=== PATIENT | male | born 1955 | race Caucasian/White ===

== ENCOUNTER → 2016-07-23 | Outpatient (CLI) | payer BC ==
[~2016-07-23] MED LIST: ATOR-22 PO; BECL1AER5 NAE; LOSA1TAB PO; MONT1TAB3 PO; MULT-506 PO
[2016-07-23 13:02] LABS: ALB/GLOB RATIO 1.2 (0.9-2); ALKALINE PHOSPHATASE 54 U/L (45-117); ALT/SGPT 42 U/L (12-78); AST/SGOT 15 U/L (15-37); BLOOD UREA NITROGEN 14 mg/dl (7-18); BUN/CREATININE RATIO 14.8 (10-20); CALCIUM 8.9 mg/dl (8.5-10.1); CARBON DIOXIDE 26 mmol/L (21-32); CHLORIDE 109 mmol/L (98-107); CREATININE 0.97 mg/dl (0.60-1.40); GLUCOSE 99 mg/dl (70-99); HDL CHOLESTEROL 49 mg/dl; POTASSIUM 4.1 mmol/L (3.5-5.1); SODIUM 143 mmol/L (136-145)
[2016-07-23 13:03] LABS: CHOLESTEROL 181 mg/dl (0-200); CHOLESTEROL/HDL RATIO 3.7; LDL CHOLESTEROL CALCULATED 111 mg/dl; TRIGLYCERIDES 107 mg/dl (0-150); VERY LOW DENSITY LIPOPROT CALC 21 mg/dl
== END | disposition home or self-care (01) ==
LOC: C.LABBFT 07:56
PROVIDERS: ATTEND Internal Medicine
DX: E78.00 Pure hypercholesterolemia, unspecified (principal)

== ENCOUNTER → 2016-08-17 | Day surgery (SDC) | payer BC ==
[2016-08-05 11:30] VITALS: Ht 168.9 cm; Wt 76.4 kg
[~2016-08-17] VITALS: Ht 168.9 cm; Wt 76.4 kg
[~2016-08-17] MED LIST changes: +LIDOCAINE HCL 2% 2 ML VIAL (20MG/ML) ONE; +PROPOFOL IV EMULSION 10 MG/ML 20 ML VIAL IV ONE
[2016-08-17 08:37] VITALS: TEMP 37
--- NOTE | 2016-08-17 09:06 | Endo History and Physical ---
History & Physical Date of Service: Aug 17, 2016. Chief Complaint: Screening Referring Physician: Ángela History of Present Illness 61 yo CM who presents for screening colonoscopy. Past Medical History High Cholesterol, Hypertension, Kidney Disease Past Surgical History Hx Cardiac Surgery: No Hx Internal Defibrillator: No Hx Pacemaker: No Hx Abdominal Surgery: No Hx of Implantable Prosthesis: No Hx Post-Op Nausea and Vomiting: No Hx Cancer Surgery: No Hx Thoracic Surgery: No Hx Orthopedic: No Hx Urinary Tract Surgery: Yes (LITHOTRIPSY) Family History None Social History Smoking Status: Current Every Day Smoker Hx Substance Use: No Hx Alcohol Use: Yes ("SOCIAL") Allergies Coded Allergies: Penicillins (Verified Allergy, Mild, RASH, 08/05/16) Tetracycline (Verified Allergy, Mild, RASH, 08/05/16) Erythromycin (Verified Allergy, Unknown, RASH, 08/05/16) Current Medications Reported Home Medications Medications Dose Route/Sig Max Daily Dose Days Date Category Multivitamin (Multivitamins) Tab 1 Tab PO QAM 08/05/16 Reported Lipitor (Atorvastatin Calcium) 20 Mg Tab 20 Mg PO QAM 08/05/16 Reported Cozaar (Losartan Potassium) 25 Mg Tab 25 Mg PO QAM 08/05/16 Reported Singulair (Montelukast Sodium) 10 Mg Tab 10 Mg PO QAM 11/06/14 Reported Qnasl (Beclomethasone Dipropionate (N) 80 Mcg/Act Aer 1 [place] SUSIE QAM 11/06/14 Reported Vital Signs Weight (Kilograms): 76.36 Height (Feet): 5 Height (Inches): 6.5 Date Time Temp Pulse Resp B/P Pulse Ox O2 Delivery O2 Flow Rate FiO2 08/17/16 08:37 37.0 85 20 136/84 94 Room Air Physical Exam General Appearance: WD/WN, no apparent distress Respiratory/Chest: Auscultation: breath sounds normal Cardiovascular: Heart Auscultation: RRR Abdomen: Bowel Sounds: normal Inspection & Palpation: soft, non-distended, no tenderness, guarding & rebound Assessment and Plan Assessment: 61 yo CM who presents for screening colonoscopy. Plan: Proceed with colonoscopy.
--- NOTE | 2016-08-17 09:58 | Discharge Instructions ---
Endoscopy Patient Instructions Date / Procedure(s) Performed Aug 17, 2016. Colonoscopy Allergy Information Coded Allergies: Penicillins (Verified Allergy, Mild, RASH, 08/05/16) Tetracycline (Verified Allergy, Mild, RASH, 08/05/16) Erythromycin (Verified Allergy, Unknown, RASH, 08/05/16) Discharge Date / Findings Aug 17, 2016. Colon polyps Diverticulosis Internal hemorrhoids Medication Instructions OK to resume all medications today as prescribed Reported Home Medications Medications Dose Route/Sig Max Daily Dose Days Date Category Multivitamin (Multivitamins) Tab 1 Tab PO QAM 08/05/16 Reported Lipitor (Atorvastatin Calcium) 20 Mg Tab 20 Mg PO QAM 08/05/16 Reported Cozaar (Losartan Potassium) 25 Mg Tab 25 Mg PO QAM 08/05/16 Reported Singulair (Montelukast Sodium) 10 Mg Tab 10 Mg PO QAM 11/06/14 Reported Qnasl (Beclomethasone Dipropionate (N) 80 Mcg/Act Aer 1 [place] SUSIE QAM 11/06/14 Reported Provider Instructions Activity Restrictions - No exercising or heavy lifting for 24 hours. - Do not drink alcohol the day of the procedure. - Do not drive a car or operate machinery until the day after the procedure. - Do not make any important decisions or sign important papers in 24 hours after the procedure. Following Day: - Return to full activity which may include returning to work/school. Diet Start your diet with liquids and light foods (jello, soup, juice, toast). Then eat your usual diet if not nauseated. Treatment For Common After Affects For mild abdominal pain, bloating, or excessive gas: - Rest - Eat lightly - Lie on right side Follow-Up Information Follow-up with Ángela as scheduled Anesthesia Information What You Should Know You have had a procedure that required some medicine to reduce anxiety and discomfort. This treatment is called moderate sedation. After receiving the treatment, you may be sleepy, but you will be able to breathe on your own. The effects of the treatment may last for several hours. Follow these instructions along with Activity/Diet recommendations noted above: * Do NOT do anything where dizziness or clumsiness would be dangerous. * Rest quietly at home today, then you can be up and about tomorrow. * Have a responsible person stay with you the rest of today. * You may have had an I.V. today. If so, you may take the dressing off later today. Recommendations Call your doctor if: * Trouble breathing * Continuous vomiting for more than 24 hours * Temperature above 101 degrees * Severe abdominal pain or bloating * Pain not relieved by pain medicine ordered * There is increased drainage or redness from any incision * A large amount of rectal bleeding greater than 2-3 tablespoons. (If you had a polyp/s removed or have hemorrhoids, a small amount of blood - from the rectum is to be expected.) * You have any unanswered questions or concerns. IN THE EVENT OF A SERIOUS EMERGENCY, GO TO THE NEAREST EMERGENCY ROOM Your discharge instructions were prepared by provider Bud Martin. Patient Instructions Signature Page Devan Mata Patient (or Guardian) Signature/Date: I have read and understand the instructions given to me by my caregivers. Caregiver/RN/Doctor Signature/Date: The above-named patient and/or guardian has received patient instructions on this date. + Original Patient Signature Page (only) stays with chart. Please make copy for patient.
--- NOTE | 2016-08-17 09:58 | GI REPORT ---
Procedure Date: 08/17/2016 9:21 AM Procedure: Colonoscopy Indications: Screening for colorectal malignant neoplasm Medicines: Monitored Anesthesia Care Complications: No immediate complications. Estimated Blood Loss: Estimated blood loss: none. Procedure: Pre-Anesthesia Assessment: - Prior to the procedure, a History and Physical was performed, and patient medications and allergies were reviewed. The patient's tolerance of previous anesthesia was also reviewed. The risks and benefits of the procedure and the sedation options and risks were discussed with the patient. All questions were answered, and informed consent was obtained. Prior Anticoagulants: The patient has taken no previous anticoagulant or antiplatelet agents. ASA Grade Assessment: II - A patient with mild systemic disease. After reviewing the risks and benefits, the patient was deemed in satisfactory condition to undergo the procedure. After I obtained informed consent, the scope was passed under direct vision. Throughout the procedure, the patient's blood pressure, pulse, and oxygen saturations were monitored continuously. The Scope was introduced through the anus and advanced to the terminal ileum. The colonoscopy was performed without difficulty. The patient tolerated the procedure well. The quality of the bowel preparation was good. The terminal ileum, ileocecal valve, appendiceal orifice, and rectum were photographed. Findings: Two sessile polyps were found in the transverse colon and in the ascending colon. The polyps were 5 to 8 mm in size. These polyps were removed with a hot snare. Resection and retrieval were complete. Multiple small-mouthed diverticula were found in the sigmoid colon. Non-bleeding internal hemorrhoids were found during retroflexion. The hemorrhoids were small. Impression: - Two 5 to 8 mm polyps in the transverse colon and in the ascending colon, removed with a hot snare. Resected and retrieved. - Diverticulosis in the sigmoid colon. - Non-bleeding internal hemorrhoids. Recommendation: - Resume previous diet. - Continue present medications. - Repeat colonoscopy for surveillance based on pathology results. - Return to primary care physician as previously scheduled. Bud Martin, DO 08/17/2016 9:58:24 AM This report has been signed electronically. Note Initiated On: 08/17/2016 9:21 AM I attest to the content of the Intraoperative Record and orders documented therein, exceptions below
--- NOTE | 2016-08-17 10:19 | Anesthesiology Progress Note ---
Anesthesia Post Op Note Date & Time Aug 17, 2016 at 10:19 Vital Signs Pain Intensity: 0 Vital Signs Past 12 Hours Date Time Temp Pulse Resp B/P Pulse Ox O2 Delivery O2 Flow Rate FiO2 08/17/16 10:11 84 20 134/83 95 Room Air 08/17/16 09:57 88 20 126/63 100 Room Air 08/17/16 08:37 37.0 85 20 136/84 94 Room Air Notes Mental Status: alert / awake / arousable, participated in evaluation Pt Amnestic to Procedure: Yes Nausea / Vomiting: adequately controlled Pain: adequately controlled Airway Patency, RR, SpO2: stable & adequate BP & HR: stable & adequate Hydration State: stable & adequate Anesthetic Complications: no major complications apparent
[2016-08-17 10:25] VITALS: BP 128/77; PULSE 82; O2SAT 97
== END | disposition home or self-care (01) ==
LOC: C.GI 08:16
PROVIDERS: ATTEND Internal Medicine
DX: Z12.11 Encounter for screening for malignant neoplasm of colon (principal); D12.2 Benign neoplasm of ascending colon; K57.30 Diverticulosis of large intestine without perforation or abscess without bleeding; K64.8 Other hemorrhoids; I12.9 Hypertensive chronic kidney disease with stage 1 through stage 4 chronic kidney disease, or unspecified chronic kidney disease; N18.9 Chronic kidney disease, unspecified; Z87.891 Personal history of nicotine dependence

== ENCOUNTER → 2017-03-23 | Outpatient (CLI) | payer BC ==
[~2017-03-23] MED LIST changes: -LIDOCAINE HCL 2% 2 ML VIAL (20MG/ML) ONE; -PROPOFOL IV EMULSION 10 MG/ML 20 ML VIAL IV ONE
== END | disposition home or self-care (01) ==
LOC: C.LABSPEC 17:33
PROVIDERS: ATTEND Nurse Practitioner
DX: J02.9 Acute pharyngitis, unspecified (principal)

== ENCOUNTER → 2017-03-23 | Outpatient (CLI) | payer BC | END | disposition home or self-care (01) | LOC: C.LABBFT 11:46 | PROVIDERS: ATTEND Nurse Practitioner | DX: J02.9 Acute pharyngitis, unspecified (principal) ==

== ENCOUNTER 2023-04-14 13:52 | Inpatient (IN) ==
[2023-04-14 14:35] LABS: Hematocrit (blood only) 45.6 % (42.0-52.0); Hemoglobin 15.4 g/dl (14.0-18.0); Mean Corpuscular Hemoglobin 32.2 pg (25.0-34.0); Mean Corpuscular Hgb Conc 33.8 g/dL (32.0-36.0); Mean Corpuscular Volume 95.4 fL (80.0-100.0); Mean Platelet Volume 8.8 fL (9.4-12.4); Platelet Count 384 K/uL (130-400); RDW Coefficient of Variation 12.4 % (11.5-14.5); RDW Standard Deviation 44.3 fL (36.4-46.3); Red Blood Count 4.78 M/uL (4.70-6.10); White Blood Count 13.23 K/ul (4.8-10.8)
[2023-04-14 14:59] LABS: Basophils # (auto) 0.08 K/uL (0.00-0.20); Basophils % (auto) 0.6 %; Eosinophils # (auto) 0.46 K/uL (0.00-0.50); Eosinophils % (auto) 3.5 %; Immature Granulocytes # (auto) 0.23 K/uL (0.01-0.20); Immature Granulocytes % (auto) 1.7 %; Lymphocytes # (auto) 1.84 K/uL (1.20-3.40); Lymphocytes % (auto) 13.9 %; Monocytes # (auto) 1.68 K/uL (0.11-0.59); Monocytes % (auto) 12.7 %; Neutrophils # (auto) 8.94 K/uL (1.40-6.50); Neutrophils % (auto) 67.6 %
[2023-04-14 15:00] LABS: Albumin Globulin Ratio 1.2 (0.9-2); Albumin Level 4.1 gm/dl (3.4-5.0); BUN Creatinine Ratio 7.8 (10-20); Bilirubin,Total 0.4 mg/dl (0.2-1.0); Calcium 9.5 mg/dl (8.6-10.3); Creatinine Clr Calc Pharmacy 54.7 ml/min; Est GFR (African American) 74.8 ml/min; Est GFR (Non-African American) 64.6 ml/min; Globulin 3.3 gm/dl (2.5-4.0); Potassium 3.8 mmol/L (3.5-5.1); Total Protein 7.4 gm/dl (6.0-8.3)
--- NOTE | 2023-04-14 16:29 | Emergency Department Note ---
Impression & Plan Diverticulitis ED Provider Note NAME: REYES VERA AGE: 67 SEX: M : 1955 ARRIVES VIA: Walk-In INFORMANT: Patient, ED PROVIDER(S): Hector Valdez MD CHIEF COMPLAINT: Abdominal pain, diarrhea HPI: This is a 67-year-old male with history of hypertension presenting for abdominal pain and diarrhea. Patient was seen here few days ago and diagnosed with colitis and diverticulitis. He has been on antibiotics for the past 5 days. He had symptoms 5 days prior to coming to the ER last time. Interval he is about 10 days of symptoms, not improving despite antibiotic therapy. He has notes worsening bleeding and now worsening diarrhea. He notes cramping abdominal pain as well. No fevers at home, no chills. ROS: See above HPI for pertinent positives & negatives. A total of 10 systems reviewed and were otherwise negative. PAST MEDICAL HISTORY: See Below PAST SURGICAL HISTORY: See Below FAMILY HISTORY: See Below SOCIAL HISTORY: See Below HOME MEDICATIONS: See Below ALLERGIES: See Below VITALS: See Below PHYSICAL EXAMINATION: General: resting comfortably in no acute distress Head: Normocephalic and atraumatic Eyes: Normal inspection, extraocular muscles intact, no conjunctival pallor Ear, nose, throat: Normal external exam Neck: Normal range of motion Respiratory: Patient is in no respiratory distress, lungs clear to auscultation bilaterally Cardiovascular: RRR without murmur appreciated GI: soft, nontender, no guarding or rebound Extremities: pulses intact with good cap refills, no LE pitting edema or calf tenderness Neuro: The patient awake and alert, appropriately conversive,no focal decifits Skin: Warm, dry, and intact MEDICAL DECISION MAKING: This is a 67-year-old male with history of hypertension presenting for abdominal pain and diarrhea. Patient diagnosed with diverticulitis, given metronidazole and ciprofloxacin, been on for 5 days without any improvement. Patient continues to have diarrhea and abdominal pain. Patient has been to bathroom multiple times during my interview due to his persistent diarrhea. We will give fluids, basic lab work, CT abdomen/pelvis to assess for diverticular disease and perforation versus abscess at this time. Blood work is reassuring overall however there is a slight leukocytosis of 13 which is worse than his previous value. Likely related to his diverticulitis. Otherwise no significant electrolyte disturbances. Patient does have now transaminitis of unclear etiology. Otherwise his urinalysis reveals ketones. We will send off C. difficile and stool sample as well. C. difficile is negative as well as stool PCR. Patient being resuscitated but has continued profuse diarrhea while in the emergency department. Will place bedside commode. CT imaging shows continued diverticulitis, new areas of disease as well. There is a possible free fluid versus phlegmon in the rectum. Will admit for IV antibiotics and fluid resuscitation at this time. Triage Nursing notes reviewed. Prior medical records reviewed Vital Signs: reviewed and remarkable for no significant abnormalities Differential diagnosis: SBO, pancreatitis, diverticulitis, abscess, perforation, UTI, kidney stone ER treatment provided: See below Diagnostics interpreted by me: ECG: None Cardiac Monitoring: An order was placed for continuous cardiac monitoring. The monitor shows a rate of 84 with sinus rhythm. Laboratory studies: As stated above and show below. Imaging studies: See below. 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 History of nasal polypectomy H/O lithotripsy Family History Mother Colorectal cancer Family history of reaction to anesthesia nausea Grandmother Diabetes Grandmother (Paternal) Family history of diabetes mellitus Son Hypereosinophilic syndrome Son Hypereosinophilic syndrome Denies family history of Ovarian cancer Prostate cancer Heart disease Myocardial infarction Breast cancer Lung cancer Stroke Social History Smoking Status: Current some day smoker Tobacco Type: Cigarettes Age Started Using Tobacco: 26; packs per day: 0.25; Cigarettes Per Day: 4; Second Hand Exposure: No; Do You Dip or Chew Tobacco: No; Hx Alcohol Use: Yes Alcohol type: beer Alcohol Intake Frequency Comment: drinks 2 beer every day Hx Substance Use: No Preferred Language: Italian Communication Ability: Effective Visual Impairment: No Limitations Hearing Ability: Normal Neighborhood Coordinator Required: No Beliefs That Will Affect Care: None marital status: Current Living Situation: Spouse current occupational status: retired current occupation: used to work in sales with [employer] Feels Safe at Home: Yes Childhood Exposure to Second-Hand Smoke: Yes Diet: regular caffeine: Yes Dental Care, Regularly: Yes Physical Activity Frequency: Does not Exercise Seatbelt Use: always Sunscreen Use: Yes Assistive Devices: Glasses Allergies Allergies Allergy/AdvReac Type Severity Reaction Status Date / Time erythromycin base Allergy Mild RASH Verified 04/10/23 10:24 tetracycline Allergy Mild RASH Verified 04/10/23 10:24 Home Meds Home Medications Medication Instructions Recorded Confirmed [id number]-[id number]-raazrf 1 tab PO QAM 12/18/19 04/14/23 tablet (Multivitamin 50 Plus tablet) fluticasone propionate 50 2 spray intranasal QA 06/22/22 04/14/23 mcg/actuation nasal spray,suspension (Flonase Allergy Relief) atorvastatin 40 mg tablet 40 mg PO QA 04/10/23 04/14/23 losartan 25 mg tablet 25 mg PO QA 04/10/23 04/14/23 montelukast 10 mg tablet 10 mg PO QA 04/10/23 04/14/23 Previous Rx's Medication Instructions Recorded ciprofloxacin HCl 500 mg tablet 500 mg PO BID #14 tabs 04/10/23 metronidazole 500 mg tablet 500 mg PO Q8H 7 days #21 tabs 04/10/23 Results & Data (ED) Vital Signs Vital Signs - 24 hr 04/14/23 14:07 04/14/23 15:33 04/14/23 15:43 Temperature 36.9 C Temperature Source Temporal Artery Scan Pulse Rate 107 H 99 H Pulse Rate [Left Finger] 87 Respiratory Rate 19 19 Respiratory Effort / Characteristics Non-Labored Non-Labored Respiratory Depth Normal Normal Blood Pressure 112/79 Blood Pressure [Left Arm] 133/97 Blood Pressure Mean 90 Blood Pressure Mean [Left Arm] 109 Pulse Oximetry 97 98 Oxygen Delivery Method Room Air Room Air Sepsis Recent Fever Within 48 Hours No Sepsis New/Unexplained Change in Mental Status No Sepsis Action Taken by Nursing No Action Required 04/14/23 17:08 Temperature Temperature Source Pulse Rate Pulse Rate [Left Finger] 84 Respiratory Rate 16 Respiratory Effort / Characteristics Non-Labored Respiratory Depth Normal Blood Pressure Blood Pressure [Left Arm] 124/79 Blood Pressure Mean Blood Pressure Mean [Left Arm] 94 Pulse Oximetry 95 Oxygen Delivery Method Room Air Sepsis Recent Fever Within 48 Hours Sepsis New/Unexplained Change in Mental Status Sepsis Action Taken by Nursing Laboratory Data 04/14/23 14:18 04/14/23 14:18 Lab Results 04/14/23 04/14/23 Range/Units 14:18 16:10 WBC 13.23 H (4.8-10.8) K/ul RBC 4.78 (4.70-6.10) M/uL Hgb 15.4 (14.0-18.0) g/dl Hct 45.6 (42.0-52.0) % MCV 95.4 (80.0-100.0) fL MCH 32.2 (25.0-34.0) pg MCHC 33.8 (32.0-36.0) g/dL RDW Std Deviation 44.3 (36.4-46.3) fL RDW Coeff of Ward 12.4 (11.5-14.5) % Plt Count 384 (130-400) K/uL MPV 8.8 L (9.4-12.4) fL Immature Gran % (Auto) 1.7 % Neut % (Auto) 67.6 % Lymph % (Auto) 13.9 % Martin % (Auto) 12.7 % Eos % (Auto) 3.5 % Baso % (Auto) 0.6 % Neut # (Auto) 8.94 H (1.40-6.50) K/uL Lymph # (Auto) 1.84 (1.20-3.40) K/uL Martin # (Auto) 1.68 H (0.11-0.59) K/uL Eos # (Auto) 0.46 (0.00-0.50) K/uL Baso # (Auto) 0.08 (0.00-0.20) K/uL Immature Gran # (Auto) 0.23 H (0.01-0.20) K/uL Sodium 136 (136-145) mmol/L Potassium 3.8 (3.5-5.1) mmol/L Chloride 103 (98-107) mmol/L Carbon Dioxide 26 (21-32) mmol/L Anion Gap 7 (3-11) BUN 9 (6-23) mg/dl Creatinine 1.15 (0.6-1.4) mg/dl Est Cr Clr Drug Dosing 54.7 ml/min Est GFR ( Amer) 74.8 ml/min Est GFR (Non-Af Amer) 64.6 ml/min BUN/Creatinine Ratio 7.8 L (10-20) Glucose 126 H (70-99(Fasting)) mg/dl Calcium 9.5 (8.6-10.3) mg/dl Total Bilirubin 0.4 (0.2-1.0) mg/dl AST 60 H (13-39) U/L ALT 59 H (7-52) U/L Alkaline Phosphatase 57 (34-104) U/L Total Protein 7.4 (6.0-8.3) gm/dl Albumin 4.1 (3.4-5.0) gm/dl Globulin 3.3 (2.5-4.0) gm/dl Albumin/Globulin Ratio 1.2 (0.9-2) Lipase 27 (11-82) U/L Urine Color Yellow Urine Appearance Clear (Clear) Urine pH 5.5 (4.5-7.5) Ur Specific [employer] Mdl 1.011 (1.000-1.030) Urine Protein Negative (Negative) Urine Glucose (UA) Negative (Negative) Urine Ketones Trace H (Negative) Urine Blood Negative (Negative) Urine Nitrite Negative (Negative) Urine Bilirubin Negative (Negative) Urine Urobilinogen Negative (Negative) Ur Leukocyte Esterase Trace H (Negative) Urine WBC (Auto) 1-5 (0-5) /hpf Urine RBC (Auto) 0-4 (0-4) /hpf U Hyaline Cast (Auto) 0 (0-5) /lpf U Epithel Cells (Auto) 5-10 H (0-5) /lpf Urine Bacteria (Auto) Negative (Negative) Stl C. cayetanensis PCR Not Detected (NotDetected) Stool Rotavirus A PCR Not Detected (NotDetected) Stl Adenov F 40/41 PCR Not Detected (NotDetected) Stool Astrovirus (PCR) Not Detected (NotDetected) Stool Campylobacter PCR Not Detected (NotDetected) Stl C. diff Tox B Gene Negative Cdiff Gene (Neg) Stool Cryptosporidium PCR Not Detected (NotDetected) Stl E.coli Shiga Tox PCR Not Detected (NotDetected) Stl Enterotoxigenic E PCR Not Detected (NotDetected) Stool EPEC (PCR) Not Detected (NotDetected) Stool EAEC (PCR) Not Detected (NotDetected) Stl E. histolytica PCR Not Detected (NotDetected) Stool Giardia Lamblia PCR Not Detected (NotDetected) Stool Salmonella PCR Not Detected (NotDetected) Stool Sapovirus (PCR) Not Detected (NotDetected) Stl P. shigelloides PCR Not Detected (NotDetected) Stl Shigella/EIEC PCR Not Detected (NotDetected) St Y.enterocolitica PCR Not Detected (NotDetected) Stool Vibrio (PCR) Not Detected (NotDetected) Stl Vibrio cholerae PCR Not Detected (NotDetected) Stl Norovirus GI/GII PCR Not Detected (NotDetected) Administered Medications Discontinued Medications Sodium Chloride (Nss) 1,000 mls @ 999 mls/hr IV .Q1H1M ONE Stop: 04/14/23 17:42 Last Admin: 04/14/23 17:05 Dose: 999 mls/hr Documented By: TALITA Ioversol (Optiray 320 100ml) 89 ml IV ONCE ONE Stop: 04/14/23 16:52 Last Admin: 04/14/23 16:52 Dose: 89 ml Documented By: AMADO Imaging Data Radiologist's Impression: Abdomen/Pelvis CT 04/14/23 15:57 CT abd pelvis IV con only CLINICAL HISTORY: Abd pain, bleeding, diverticulitis TECHNIQUE: Helical axial images of the abdomen and pelvis were obtained and displayed. Automated dose lowering techniques and/or adjustment according to patient size were utilized for this exam. This exam was performed with intravenous contrast. CT DOSE: 859.96 mGy.cm COMPARISON: Comparison is made to CT abdomen pelvis 04/10/2023 FINDINGS: Lower chest: No acute abnormality. Liver: Focal fatty changes are noted about the falciform ligament. Gallbladder and biliary tree: No calcified gallstones. Normal caliber wall. No intra- or extrahepatic biliary ductal dilation. Pancreas: Unremarkable, no focal lesions. Spleen: Calcifications are noted in the spleen compatible with prior granulomatous disease. Adrenals: Unremarkable. Kidneys and ureters: Subcentimeter hypodensities are too small to characterize. Bladder: Unremarkable. Reproductive organs: Prostatomegaly is seen. Partial visualization of right mastectomy clip. Bowel: Compared to the prior exam, previously noted thickening of the transverse colon has resolved. There is stable to increased mild fat stranding about the distal descending colon. Thickening and vascular prominence about the sigmoid colon is unchanged, however there is some heterogeneity about the anterior rectal wall. Numerous diverticula are again seen. Lymph nodes Retroperitoneal: Unremarkable. Pelvic: Unremarkable. Mesenteric: Subcentimeter lymph nodes are noted. Peritoneum: Normal. Vessels: Atherosclerotic calcifications are seen. Abdominal wall: Bilateral fat-containing inguinal hernias are seen. The proximal sigmoid colon approaches but does not enter this hernia. Fat-containing umbilical hernia is seen. Bones: Degenerative changes in the visualized spine. IMPRESSION: Findings are compatible with ongoing sigmoid diverticulitis although the transverse colon inflammation appears to have improved. There may be a new focus of disease in the distal descending colon. There is irregularity about the anterior rectal wall which may represent adjacent free fluid versus developing phlegmon. ACT 112: Negative or not required by law. Electronically signed by: Kevin Ferrell M.D. 04/14/2023 6:03 PM Discharge Plan Visit Data Chief Complaint: Abdominal Pain Stated Complaint: DIVERTICULITIS, ABD CRAMPING, NO APPETITE ED Provider: Hector Valdez Discharge Problem: Diverticulitis Forms Stand Alone Forms: My [employer] Prescriptions Prescriptions: No Action fluticasone propionate [Flonase Allergy Relief] 50 mcg/actuation spray,suspension 2 spray intranasal QAM Rx Instructions: administer into each nostril Multivitamin 50 Plus Tablet 1 tab PO QAM atorvastatin 40 mg tablet 40 mg PO QAM Patient Comments: takes in pm losartan 25 mg tablet 25 mg PO QAM Patient Comments: takes in the am montelukast 10 mg tablet 10 mg PO QAM Patient Comments: pt states he takes in the am ciprofloxacin HCl 500 mg tablet 500 mg PO BID Qty: 14 0RF metronidazole 500 mg tablet 500 mg PO Q8H 7 Days Qty: 21 0RF Referrals Referrals: Jermaine Stovall DO [Primary Care Provider] -
[2023-04-14 16:32] LABS: Appearance Urine Clear (Clear); Bacteria Urine Automated Negative (Negative); Bilirubin Urine Negative (Negative); Blood Urine Negative (Negative); Cast Urine Automated 0 /lpf (0-5); Color Urine Yellow; Glucose Urine UA Negative (Negative); Ketones Urine Trace (Negative); Leukocyte Esterase Urine Trace (Negative); Nitrite Urine Negative (Negative); Protein Urine Negative (Negative); RBC Urine Automated 0-4 /hpf (0-4); Specific Gravity Urine 1.011 (1.000-1.030); Urobilinogen Urine Negative (Negative); pH Urine 5.5 (4.5-7.5)
[2023-04-14] MEDS ORDERED: SODIUM CHLORIDE 0.9% 1,000 ML IV ONE (16:42)
[2023-04-14] MEDS ORDERED: OPTIRAY 320 100ml IV ONE (16:51)
[2023-04-14 17:52] LABS: Adenovirus F 40/41 PCR Not Detected (NotDetected); Astrovirus PCR Not Detected (NotDetected); Campylobacter PCR Not Detected (NotDetected); Cryptosporidium PCR Not Detected (NotDetected); Cyclospora cayetanensis PCR Not Detected (NotDetected); Entamoeba histolytica PCR Not Detected (NotDetected); Enteroaggregative E.coli(EAEC) Not Detected (NotDetected); Enteropathogenic E.coli (EPEC) Not Detected (NotDetected); Enterotoxigenic E.coli (ETEC) Not Detected (NotDetected); Giardia lamblia PCR Not Detected (NotDetected); Norovirus GI/GII PCR Not Detected (NotDetected); Plesiomonas shigelloides PCR Not Detected (NotDetected); Rotavirus A PCR Not Detected (NotDetected); Salmonella PCR Not Detected (NotDetected); Sapovirus PCR Not Detected (NotDetected); Shiga-like Toxin E.coli (STEC) Not Detected (NotDetected); Shigella/Enteroinvasive E.coli Not Detected (NotDetected); Vibrio cholerae PCR Not Detected (NotDetected); Vibrio species PCR Not Detected (NotDetected); Yersinia enterocolitica PCR Not Detected (NotDetected)
--- NOTE | 2023-04-14 18:06 | CT Scan Report ---
CT abd pelvis IV con only CLINICAL HISTORY: Abd pain, bleeding, diverticulitis TECHNIQUE: Helical axial images of the abdomen and pelvis were obtained and displayed. Automated dose lowering techniques and/or adjustment according to patient size were utilized for this exam. This e xam was performed with intravenous contrast. CT DOSE: 859.96 mGy.cm COMPARISON: Comparison is made to CT abdomen pelvis 04/10/2023 FINDINGS: Lower chest: No acute abnormality. Liver: Focal fatty changes are noted about the falciform ligament. Gallbladder and biliary tree: No calcified gallstones. Normal caliber wall. No intra- or extrahepatic biliary ductal dilation. Pancreas: Unremarkable, no focal lesions. Spleen: Calcifications are noted in the spleen compatible with prior granulomatous disease. Adrenals: Unremarkable. Kidneys and ureters: Subcentimeter hypodensities are too small to characterize. Bladder: Unremarkable. Reproductive organs: Prostatomegaly is seen. Partial visualization of right mastectomy clip. Bowel: Compared to the prior exam, previously noted thickening of the transverse colon has resolved. There is stable to increased mild fat stranding about the distal descending colon. Thickening and vas cular prominence about the sigmoid colon is unchanged, however there is some heterogeneity about the anterior rectal wall. Numerous diverticula are again seen. Lymph nodes Retroperitoneal: Unremarkable. Pelvic: Unremarkable. Mesenteric: Subcentimeter lymph nodes are noted. Peritoneum: Normal. Vessels: Atherosclerotic calcifications are seen. Abdominal wall: Bilateral fat-containing inguinal hernias are seen. The proximal sigmoid colon approa ches but does not enter this hernia. Fat-containing umbilical hernia is seen. Bones: Degenerative changes in the visualized spine. IMPRESSION: Findings are compatible with ongoing sigmoid diverticulitis although the transverse colon inflammatio n appears to have improved. There may be a new focus of disease in the distal descending colon. There is irregularity about the anterior rectal wall which may represent adjacent free fluid versus develo ping phlegmon. ACT 112: Negative or not required by law. Electronically signed by: Kevin Ferrell M.D. 04/14/2023 6:03 PM
[2023-04-14] MEDS ORDERED: LACTATED RINGER'S 1,000 ML IV ONE (18:25)
[2023-04-14] MEDS ORDERED: PIPERACILLIN/TAZOBACTAM 4.5 GM/100 ML BAG IV ONE (18:25)
--- NOTE | 2023-04-14 18:59 | History & Physical Report ---
Date of Service April 14, 2023 Assessment & Plan (1) Sigmoid diverticulitis: Plan: Worsening bloody diarrhea x10 days Patient was at [facility] ED on Tuesday 04/10; prescribed ciprofloxacin 500 mg BID and metronidazole 500 mg TID x7 days as an outpatient Failed outpatient therapy Mild leukocytosis at 13.23 with a neutrophil predominance Negative C. difficile Negative stool panel Electrolytes WNL CT abd/pelvis showed sigmoid diverticulitis CT abd/pelvis also noted an "irregularity about the anterior rectal wall which may represent adjacent free fluid versus developing phlegmon" ?Consider general surgery consult to rule out abscess; ?Percutaneous drainage with IR US mesenteric duplex ordered to rule out ischemic processes Hold p.o. drugs except for losartan Zosyn started in the ED Continue Zosyn 4.5g IV q8h Continue IV fluid resuscitation N.p.o.; bowel rest, then advance to clear liquid diet as tolerated Bedside commode for frequent diarrhea Acetaminophen for pain; patient denied pain, pain medication at present (just having abdominal cramping) Zofran 4 mg IV q6h as needed for nausea Famotidine 20 mg IV twice daily A.m. CBC, BMP (2) Cigarette smoker: Plan: Tobacco cigarette smoker; 50-year history; currently 4 cigarettes/daily (3) Hypertension: Plan: Continue losartan (4) Hyperlipidemia: Plan: Hold atorvastatin Plan [facility] Full code Keep n.p.o. for bowel rest, then advance to clear liquid diet as tolerated VTE PPx: SCDs, Lovenox 40 mg SQ q24h History of Present Illness Chief Complaint: Abdominal pain Primary Care Provider: Jermaine Stovall DO Devan is a 67-year-old male with PMH of diverticulitis, colitis, HTN, HLD. He presented to the ED for diarrhea x10 days despite course of antibiotics. Patient finished a 5-day course of Cipro plus Flagyl, but symptoms continue to get worse. Per patient, his stool consistency has ranged from "bubbly bile", to bright red blood in diarrhea. Intermittent abdominal cramping. No radiation to legs/back. No medications taken at home for pain. He reports that he took his morning medications. No hx of diverticulitis to patient's knowledge. No recent changes in diet, although he notes that he has not eaten much in the past 7 days; mainly broth. No sick contacts. Current tobacco cigarette smoker; 4 cigs / day. He denies vaping and recreational drug use. He endorses alcohol use; beer/wine 2 drinks per day. ED course: Zosyn, IVF ROS: Patient endorses loss of appetite, nausea, abdominal cramping, and bloody diarrhea. Patient denies fever, chills, nightsweats, cough, CARVAJAL, dizziness, lightheadedness, vomiting, CP, SOB, pleuritic CP, burning with urination, back pain, numbness/tingling/swelling/pain in LEs. Patient endorses PMHx of kidney stone (treated w/ lithotripsy) Patient denies PMHx of abdominal surgeries, appendectomy, cholecystectomy, he rnias, AL, CVA, DVT/PE, diabetes, or cancer. Allergies Allergy/AdvReac Type Severity Reaction Status Date / Time erythromycin base Allergy Mild RASH Verified 04/10/23 10:24 tetracycline Allergy Mild RASH Verified 04/10/23 10:24 Home Medications Medication Instructions Recorded Confirmed Type mcnobebgvmco-[id number] 1 tab PO QAM 12/18/19 04/14/23 History tablet (Multivitamin 50 Plus tablet) fluticasone propionate 50 2 spray intranasal QAM 06/22/22 04/14/23 History mcg/actuation nasal spray,suspension (Flonase Allergy Relief) atorvastatin 40 mg tablet 40 mg PO QAM 04/10/23 04/14/23 History ciprofloxacin HCl 500 mg tablet 500 mg PO BID #14 tabs 04/10/23 04/14/23 Rx losartan 25 mg tablet 25 mg PO QAM 04/10/23 04/14/23 History metronidazole 500 mg tablet 500 mg PO Q8H 7 days #21 tabs 04/10/23 04/14/23 Rx montelukast 10 mg tablet 10 mg PO QAM 04/10/23 04/14/23 History Past Med/Surg History Medical History Toxic effect of other tobacco and nicotine, undetermined, sequela History of kidney stones History of nasal polyp Hypertension Surgical History Hx of vasectomy History of colonoscopy with polypectomy (08/2016) tubular adenoma and hyperplastic polyp removed, repeat recommended in 5 years. History of nasal polypectomy H/O lithotripsy Family History Mother Colorectal cancer Family history of reaction to anesthesia nausea Grandmother Diabetes Grandmother (Paternal) Family history of diabetes mellitus Son Hypereosinophilic syndrome Son Hypereosinophilic syndrome Denies family history of Ovarian cancer Prostate cancer Heart disease Myocardial infarction Breast cancer Lung cancer Stroke Social History Smoking Status: Current some day smoker Tobacco Type: Cigarettes Age Started Using Tobacco: 26; packs per day: 0.25; Cigarettes Per Day: 4; Second Hand Exposure: Yes; Do You Dip or Chew Tobacco: No; Tobacco Cessation Education Requested by Patient: No Hx Alcohol Use: No Hx Substance Use: No Preferred Language: Portuguese Communication Ability: Effective Visual Impairment: No Limitations Hearing Ability: Normal Road Monkey Required: No Beliefs That Will Affect Care: None marital status: Current Living Situation: Family current occupational status: retired current occupation: used to work in [employer] with [employer] Other Information That Helps Us Care for You: No Feels Safe at Home: Yes Safety Concerns: Feels Safe At This Time Childhood Exposure to Second-Hand Smoke: Yes Diet: regular caffeine: Yes Dental Care, Regularly: Yes Physical Activity Frequency: Does not Exercise Seatbelt Use: always Sunscreen Use: Yes Assistive Devices: None Review of Systems Review of Systems: See HPI above Physical Exam Physical Exam: General: no acute distress; mildly anxious; non-toxic appearing; cooperative HEENT: normocephalic, atraumatic; no scleral icterus; PERRLA w/ EOMs intact; moist mucus membrane; vision and hearing grossly intact Neck: supple; no lymphadenopathy; trachea midline Skin: warm, dry without signs of tenting; no cyanosis; no rashes, bruising, les ions, or erythema noted CV: chest wall NTP; RRR; S1/S2 normal; no murmurs/rubs/gallops; pulses intact and symmetric at radial, DP, and PT Lungs: no acute respiratory distress; symmetrical chest wall expansion; clear breath sounds across all lung barcenas w/o adventitious sounds; no wheezing ABD: Soft, NTP; no signs of retroperitoneal hemorrhage; BS present; (-) Perez's sign; (-) McBurney's point tenderness; no rebound/guarding; no ascites; mild distention; NTP in the LLQ MSK: no tics or fasciculations; no edema noted in the LEs b/l; patient demonstrates ability to wiggle toes Neuro: A&Ox3; normal mood and affect; fluent speech; no focal deficits; sensation grossly intact Results & Data Results & Data Vital Signs (Past 12 Hours) Vital Signs Temp Pulse Pulse Resp BP BP Pulse Ox 04/14/23 17:08 84 16 124/79 95 04/14/23 15:43 99 H 04/14/23 15:33 87 19 133/97 98 04/14/23 14:07 36.9 C 107 H 19 112/79 97 O2 Del Method 04/14/23 17:08 Room Air 04/14/23 15:43 04/14/23 15:33 Room Air 04/14/23 14:07 Room Air Laboratory Results Abnormal lab results 04/14/23 04/14/23 Range/Units 14:18 16:10 WBC 13.23 H (4.8-10.8) K/ul MPV 8.8 L (9.4-12.4) fL Neut # (Auto) 8.94 H (1.40-6.50) K/uL [place] # (Auto) 1.68 H (0.11-0.59) K/uL Immature Gran # (Auto) 0.23 H (0.01-0.20) K/uL BUN/Creatinine Ratio 7.8 L (10-20) Glucose 126 H (70-99(Fasting)) mg/dl AST 60 H (13-39) U/L ALT 59 H (7-52) U/L Urine Ketones Trace H (Negative) Ur Leukocyte Esterase Trace H (Negative) U Epithel Cells (Auto) 5-10 H (0-5) /lpf Diagnostic Findings Abdomen/Pelvis CT 04/14/23 15:57 CT abd pelvis IV con only CLINICAL HISTORY: Abd pain, bleeding, diverticulitis TECHNIQUE: Helical axial images of the abdomen and pelvis were obtained and displayed. Automated dose lowering techniques and/or adjustment according to patient size were utilized for this exam. This exam was performed with intravenous contrast. CT DOSE: 859.96 mGy.cm COMPARISON: Comparison is made to CT abdomen pelvis 04/10/2023 FINDINGS: Lower chest: No acute abnormality. Liver: Focal fatty changes are noted about the falciform ligament. Gallbladder and biliary tree: No calcified gallstones. Normal caliber wall. No intra- or extrahepatic biliary ductal dilation. Pancreas: Unremarkable, no focal lesions. Spleen: Calcifications are noted in the spleen compatible with prior granulomatous disease. Adrenals: Unremarkable. Kidneys and ureters: Subcentimeter hypodensities are too small to characterize. Bladder: Unremarkable. Reproductive organs: Prostatomegaly is seen. Partial visualization of right mastectomy clip. Bowel: Compared to the prior exam, previously noted thickening of the transverse colon has resolved. There is stable to increased mild fat stranding about the distal descending colon. Thickening and vascular prominence about the sigmoid colon is unchanged, however there is some heterogeneity about the anterior rectal wall. Numerous diverticula are again seen. Lymph nodes Retroperitoneal: Unremarkable. Pelvic: Unremarkable. Mesenteric: Subcentimeter lymph nodes are noted. Peritoneum: Normal. Vessels: Atherosclerotic calcifications are seen. Abdominal wall: Bilateral fat-containing inguinal hernias are seen. The proximal sigmoid colon approaches but does not enter this hernia. Fat-containing umbilical hernia is seen. Bones: Degenerative changes in the visualized spine. IMPRESSION: Findings are compatible with ongoing sigmoid diverticulitis although the transverse colon inflammation appears to have improved. There may be a new focus of disease in the distal descending colon. There is irregularity about the anterior rectal wall which may represent adjacent free fluid versus developing phlegmon. ACT 112: Negative or not required by law. Electronically signed by: Kevin Ferrell M.D. 04/14/2023 6:03 PM Code Status & VTE Plan Code Status Full code VTE Prophylaxis Plan VTE Prophylaxis will be ordered: Yes Supervising Physician Co-Signing Physician Notes Attending addendum: I have physically seen this patient, have supervised the FREDI's activities, and agree with the H&P unless as otherwise noted. Assessment and Plan: Sigmoid diverticulitis- Compared to previous CT, transverse colon is improving, however, there are questions of new distal descending involvement Failure of outpatient treatment N.p.o. Stop oral Cipro and Flagyl Zosyn 4.5 g IV every 8 hours C. difficile testing negative Stool PCR negative Order mesenteric duplex to assess for possible ischemic process IV fluids as noted Zofran 4 mg IV every 6 hours as needed Famotidine 4 mg IV twice daily Acetaminophen 1 g IV every 8 hours as needed for mild pain or fever Tobacco use disorder- Cessation counseling Hypertension- Continue losartan with hold parameters PG Care Time/CCT Total # of Minutes Spent Total Time Spent with Patient: Total time spent is greater than 50% in coordination of care (as documented) at patient's floor/unit and/or counseling patient: Coding [place] [address] INT INP/OBS CARE 2/55MIN Patient Type Established Medical Decision Making Moderate Complexity Diagnoses Sigmoid diverticulitis K57.32 Cigarette smoker F17.210 Hypertension I10 Hyperlipidemia E78.5
[2023-04-14] MEDS ORDERED: ONDANSETRON INJ 2 MG/ML 2 ML VIAL IV STA (20:01)
--- NOTE | 2023-04-14 22:01 | Ultrasound Report ---
Exam(s): US VASCULAR EXAM: US Duplex Arterial/Venous of the Abdomen, Complete CLINICAL HISTORY: Reason for exam: worsening colitis, potential ischemia. TECHNIQUE: Real-time duplex ultrasound scan of the abdomen integrating B-mode two- dimensional vascular structure, Doppler spectral analysis and color flow Doppler imaging. COMPARISON: No relevant prior studies available. FINDINGS: Aorta: The abdominal aorta is patent are nondilated. Peak systolic velocity 98 cm/s. Other vasculature: The celiac artery is patent. The peak systolic velocity is measured at 333 and 364 cm/s, however, the angle correction is questionable. The superior mesenteric artery is patent with peak systolic velocity 181 cm/s, 132 cm/s, and 89 cm/s. IMPRESSION: The celiac artery is patent. The peak systolic velocity is measured at 333 and 364 cm/s which is elevated, however, the angle correction is questionable. Elevated velocity consistent with greater than 70% stenosis may be artifact. Consider confirmation with cross-sectional imaging such as CT angiogram or MR angiogram. Electronically signed by: Markos Larkin MD 04/14/23 22:00 PM
[2023-04-14] MEDS ORDERED: ACETAMINOPHEN 325 MG TAB PO PRN (22:21)
[2023-04-15] MEDS: ENOXAPARIN INJ 40 MG/0.4 ML SYR SQ SCH ×2 (00:59→21:58)
[2023-04-15] MEDS: PIPERACILLIN/TAZOBACTAM 4.5 GM in DEXTROSE 5% MINI-B 100 ML IV SCH ×3 (00:59→17:37)
[2023-04-15] MEDS ORDERED: ONDANSETRON INJ 2 MG/ML 2 ML VIAL IV PRN (02:00)
[2023-04-15] MEDS ORDERED: SODIUM CHLORIDE 0.9% 1,000 ML IV SCH (06:00)
[2023-04-15 06:43] LABS: Basophils # (auto) 0.07 K/uL (0.00-0.20); Basophils % (auto) 0.5 %; Eosinophils % (auto) 4.5 %; Hematocrit (blood only) 38.4 % (42.0-52.0); Hemoglobin 13.1 g/dl (14.0-18.0); Immature Granulocytes # (auto) 0.16 K/uL (0.01-0.20); Lymphocytes % (auto) 10.3 %; Mean Corpuscular Hemoglobin 32.4 pg (25.0-34.0); Mean Corpuscular Hgb Conc 34.1 g/dL (32.0-36.0); Monocytes # (auto) 1.83 K/uL (0.11-0.59); Monocytes % (auto) 11.8 %; Neutrophils # (auto) 11.12 K/uL (1.40-6.50); Neutrophils % (auto) 71.9 %; Platelet Count 330 K/uL (130-400); RDW Coefficient of Variation 12.6 % (11.5-14.5); RDW Standard Deviation 44.2 fL (36.4-46.3); Red Blood Count 4.04 M/uL (4.70-6.10); White Blood Count 15.48 K/ul (4.8-10.8)
[2023-04-15 06:50] LABS: BUN Creatinine Ratio 7.5 (10-20); Calcium 8.6 mg/dl (8.6-10.3); Creatinine Clr Calc Pharmacy 59.4 ml/min; Est GFR (African American) 82.6 ml/min; Est GFR (Non-African American) 71.3 ml/min; Potassium 3.9 mmol/L (3.5-5.1)
--- NOTE | 2023-04-15 07:17 | Hospitalist Progress Note ---
Date of Service April 15, 2023 Assessment & Plan (1) Sigmoid diverticulitis: (2) Hypertension: (3) Hyperlipidemia: Plan Pt is a 67 yo male with a past medical history of HTN, HLD, and nicotine dependence who presents to the hospital on 04/14/23 for diverticulitis. Sigmoid diverticulitis - CT 04/10 showed thickening in the sigmoid and proximal transverse colon compatible with infectious/inflammatory colitis w/o abscess - CT 04/14 showed sigmoid diverticulitis with improvement in inflammation but possible new focus in distal descending colon, possible developing phlegmon - pt was on ciprofloxacin 500 mg BID and metronidazole 500 mg TID x7 days as an outpatient after visit on 04/10 but retuned to hosp due to continued bloody diarrhea and abd pain - continue zofran prn, famotidine - IVF NS 80/hr switched to LR 125/hr - continue IV zosyn - will start clear liquid diet tomorrow - if pt does not improve or worsens, will consider repeat CT to see if abscess formation has taken place Bloody diarrhea - ongoing for 10 days now, bright red blood - c diff negative, stool panel negative - suspect secondary to bleeding internal hemorrhoid, as bleeding is bright red and at end of BMs - hemoglobin has been stable, daily CBCs Hypotension - pressure this morning 90s/60s, 500 mL bolus given and pressures improved, continue to monitor Hypertension - pressures soft today, hold losartan Cigarette smoker - Tobacco cigarette smoker; 50-year history; currently 4 cigarettes/daily Hyperlipidemia - Hold atorvastatin Full code VTE PPx: SCDs, Lovenox 40 mg SQ q24h Admission and Anticipated Discharge Date Admission Date: April 14, 2023 Supervising Physician Co-Signing Physician Notes I personally examined the patient and verified all miranda points of history and exam, discussed case, and agree with decision making with Dr Wilkerson lower abdominal pain constantly feeling like he has have a bowel movement, frequent low-volume loose diarrheal stools some seem to be quite mucousy, none are high-volume or very watery. Blood did not start until he had diarrhea for several days, and even now the blood is largely at the end of a bowel movement. vitals noted nad heent nc at mmm abd soft nd LLQ tender without rigidity - mild voluntary guarding diverticulitis w microperforation - zosyn, supportive care, serial exams, time hematochezia - suspect hemorrhoidal. hemodynamically stable. follow. outpt scope. otherwise as above Subjective Pt is a 67 yo male with a past medical history of HTN, HLD, and nicotine dependence who presents to the hospital on 04/14/23 for diverticulitis. Today, pt states he is feeling better than when he came in. He states he had a c olonoscopy 5-6 years ago that was totally normal. He states prior to the past 10 days of small amounts of watery diarrhea, he felt fine and had no issues with blood in his bowel movements. He states that he has been getting small amounts at a time but frequent watery bowel movements the last 10 days with bright red blood noted on the tail end of having a BM a few days into having loose BMs. He notes having occasional cramps with it as well. Essentially, he states that he was having 4 BMs an hour at some points and that he would only pass a small amount of liquid stool at a time, and days into this noted specks of red blood that progressively became a bit more. Today, he notes his abdominal pain has improved. He states he does not have an appetite but does not feel nauseated. Last BM this morning had some blood still. Review of Systems Review of Systems: Per HPI. Physical Exam Physical Exam: General:Alert and oriented, no acute distress, HEENT: Normocephalic, moist oral mucosa, Cardio: Regular rate and rhythm, no murmur, Resp:Lungs clear to auscultation b/l, no wheezes or rhonchi, GI: Soft, nondistended, bowel sounds active Skin: Warm, pink, dry, Psych: Mood-affect congruence. Results & Data Results & Data Vital Signs (Past 12 Hours) Vital Signs Temp Pulse Pulse Resp BP BP Pulse Ox 04/15/23 00:48 105 H 04/15/23 00:16 37.2 C 103 H 18 106/70 93 04/15/23 00:14 37.2 C 103 H 18 106/70 93 04/14/23 21:46 131/82 04/14/23 21:46 103 H 17 04/14/23 21:44 102 H 18 04/14/23 20:00 96 H 19 04/14/23 19:54 106 H 04/14/23 19:30 90 21 11/09/23 19:24 139/89 04/14/23 19:24 93 H 15 O2 Del Method 04/15/23 00:48 04/15/23 00:16 Room Air 04/15/23 00:14 Room Air 04/14/23 21:46 04/14/23 21:46 04/14/23 21:44 04/14/23 20:00 04/14/23 19:54 04/14/23 19:30 04/14/23 19:24 04/14/23 19:24 Resident Activity Tracking Resident Involvement: Resident Care Provided Care Provided: Adult Hospital Medicine
[2023-04-15] MEDS: FAMOTIDINE 20 MG in SYRINGE 3 ML IV SCH ×2 (08:15→22:01)
[2023-04-15] MEDS: LACTATED RINGER'S 1,000 ML IV SCH ×3 (09:26→23:56)
[2023-04-15] MEDS: LOSARTAN POTASSIUM 25 MG TAB PO SCH (09:28)
[2023-04-15] MEDS ORDERED: LACTATED RINGER'S 500 ML IV ONE (09:40)
--- NOTE | 2023-04-15 18:54 | Billing Data ---
Date of Service April 15, 2023 Coding Level of Care Code 49349 SUB INP/OBS CARE MIN
[2023-04-16] MEDS: PIPERACILLIN/TAZOBACTAM 4.5 GM in DEXTROSE 5% MINI-B 100 ML IV SCH ×3 (01:55→17:41)
[2023-04-16 06:48] LABS: Hematocrit (blood only) 38.3 % (42.0-52.0); Hemoglobin 13.3 g/dl (14.0-18.0); Mean Corpuscular Hemoglobin 32.4 pg (25.0-34.0); Mean Corpuscular Hgb Conc 34.7 g/dL (32.0-36.0); Mean Corpuscular Volume 93.2 fL (80.0-100.0); Mean Platelet Volume 8.9 fL (9.4-12.4); Platelet Count 366 K/uL (130-400); RDW Coefficient of Variation 12.2 % (11.5-14.5); RDW Standard Deviation 42.3 fL (36.4-46.3); Red Blood Count 4.11 M/uL (4.70-6.10); White Blood Count 15.16 K/ul (4.8-10.8)
--- NOTE | 2023-04-16 07:09 | Hospitalist Progress Note ---
Date of Service April 16, 2023 Assessment & Plan (1) Sigmoid diverticulitis: (2) Hypertension: (3) Hyperlipidemia: Plan Pt is a 67 yo male with a past medical history of HTN, HLD, and nicotine dependence who presents to the hospital on 04/14/23 for diverticulitis. Sigmoid diverticulitis - CT 04/10 showed thickening in the sigmoid and proximal transverse colon compatible with infectious/inflammatory colitis w/o abscess - CT 04/14 showed sigmoid diverticulitis with improvement in inflammation but possible new focus in distal descending colon, possible developing phlegmon - pt was on ciprofloxacin 500 mg BID and metronidazole 500 mg TID x7 days as an outpatient after visit on 04/10 but retuned to hosp due to continued bloody diarrhea and abd pain - continue zofran prn, famotidine - IVF NS 80/hr switched to LR 125/hr - continue IV zosyn - will start clear liquid diet tomorrow - if pt does not improve or worsens, will consider repeat CT to see if abscess formation has taken place Bloody diarrhea - ongoing for 10 days now, bright red blood - c diff negative, stool panel negative - suspect secondary to bleeding internal hemorrhoid, as bleeding is bright red and at end of BMs - hemoglobin has been stable, daily CBCs Hypotension - pressure this morning 90s/60s, 500 mL bolus given and pressures improved, continue to monitor Hypertension - pressures soft today, hold losartan Cigarette smoker - Tobacco cigarette smoker; 50-year history; currently 4 cigarettes/daily Hyperlipidemia - Hold atorvastatin Full code VTE PPx: SCDs, Lovenox 40 mg SQ q24h Admission and Anticipated Discharge Date Admission Date: April 14, 2023 Subjective Pt is a 67 yo male with a past medical history of HTN, HLD, and nicotine dependence who presents to the hospital on 04/14/23 for persistent diverticulitis. Today, pt states he is feeling better than when he came in. He states he had a colonoscopy 5-6 years ago that was totally normal. He states prior to the past 10 days of small amounts of watery diarrhea, he felt fine and had no issues with blood in his bowel movements. He states that he has been getting small amounts at a time but frequent watery bowel movements the last 10 days with bright red blood noted on the tail end of having a BM a few days into having loose BMs. He notes having occasional cramps with it as well. Essentially, he states that he was having 4 BMs an hour at some points and that he would only pass a small amount of liquid stool at a time, and days into this noted specks of red blood that progressively became a bit more. Today, he notes his abdominal pain has improved. He states he does not have an appetite but does not feel nauseated. Last BM this morning had some blood still. Results & Data Results & Data Vital Signs (Past 12 Hours) Vital Signs Temp Pulse Pulse Resp BP Pulse Ox O2 Del Method 04/16/23 04:06 37.1 C 79 20 111/68 95 Room Air 04/16/23 02:38 Room Air 04/16/23 00:56 37.0 C 81 20 123/74 94 Room Air 04/15/23 23:10 84 04/15/23 19:45 37.1 C 92 H 20 126/75 95 Room Air
[2023-04-16 07:25] LABS: Basophils # (auto) 0.08 K/uL (0.00-0.20); Basophils % (auto) 0.5 %; Eosinophils # (auto) 0.73 K/uL (0.00-0.50); Eosinophils % (auto) 4.8 %; Immature Granulocytes # (auto) 0.19 K/uL (0.01-0.20); Immature Granulocytes % (auto) 1.3 %; Lymphocytes # (auto) 2.07 K/uL (1.20-3.40); Lymphocytes % (auto) 13.7 %; Monocytes # (auto) 1.67 K/uL (0.11-0.59); Neutrophils # (auto) 10.42 K/uL (1.40-6.50); Neutrophils % (auto) 68.7 %; RBC Morphology Unremarkable
[2023-04-16 07:27] LABS: Albumin Globulin Ratio 1.3 (0.9-2); Albumin Level 3.4 gm/dl (3.4-5.0); BUN Creatinine Ratio 7.1 (10-20); Bilirubin,Total 0.4 mg/dl (0.2-1.0); Calcium 8.6 mg/dl (8.6-10.3); Creatinine Clr Calc Pharmacy 63.5 ml/min; Est GFR (African American) 89.7 ml/min; Est GFR (Non-African American) 77.4 ml/min; Globulin 2.7 gm/dl (2.5-4.0); Potassium 3.8 mmol/L (3.5-5.1); Total Protein 6.1 gm/dl (6.0-8.3)
[2023-04-16] MEDS: FAMOTIDINE 20 MG in SYRINGE 3 ML IV SCH ×2 (09:18→20:41)
--- NOTE | 2023-04-16 09:59 | Hospitalist Progress Note ---
Date of Service April 16, 2023 Assessment & Plan (1) Sigmoid diverticulitis: (2) Hypertension: (3) Hyperlipidemia: Plan Pt is a 67 yo male with a past medical history of HTN, HLD, and nicotine dependence who presents to the hospital on 04/14/23 for diverticulitis. Sigmoid diverticulitis - CT 04/10 showed thickening in the sigmoid and proximal transverse colon compatible with infectious/inflammatory colitis w/o abscess - CT 04/14 showed sigmoid diverticulitis with improvement in inflammation but possible new focus in distal descending colon, possible developing phlegmon - pt was on ciprofloxacin 500 mg BID and metronidazole 500 mg TID x7 days as an outpatient after visit on 04/10 but retuned to hosp due to continued bloody diarrhea and abd pain - continue zofran prn, famotidine - IVF NS 80/hr switched to LR 125/hr - continue IV zosyn - will start clear liquid diet tomorrow - repeat CT to look for abscess formation, if pt worsens Bloody diarrhea - ongoing for several days now, bright red blood - c diff negative, stool panel negative - suspect secondary to bleeding internal hemorrhoid, as bleeding is bright red and at end of BMs - hemoglobin has been stable, daily CBCs BP: baseline Hypertension/ hospital Hypotension - losartan still held, pt normotensive Cigarette smoker - Tobacco cigarette smoker; 50-year history; currently 4 cigarettes/daily Hyperlipidemia - Hold atorvastatin Full code VTE PPx: SCDs, Lovenox 40 mg SQ q24h Admission and Anticipated Discharge Date Admission Date: April 14, 2023 Supervising Physician Co-Signing Physician Notes I personally examined the patient and verified all miranda points of history and exam, discussed case, and agree with decision making with Dr Bashir lower abdominal pain doing a bit better. Less cramping. Less diarrhea blood. Eat liquids well. vitals noted nad heent nc at mmm abd soft nd LLQ tender Only based on him telling methere is no evidence of tenderness on exam anymore, he has no voluntary guarding at all. diverticulitis w microperforation - Continue zosyn, supportive care, serial exams, slowly advance diet hematochezia - suspect hemorrhoidal. hemodynamically stable. follow. outpt scope. otherwise as above Subjective Pt is a 67 yo male with a past medical history of HTN, HLD, and nicotine depe ndence who presents to the hospital on 04/14/23 for persistent diverticulitis. Today, pt states he is feeling well, eating jello, broth, sherbet, transition to full liquids for dinner. Is regaining his appetite and wants to eat. Colonoscopy 5-6 years ago that was totally normal, per patient. No more pain felt on left than right side of abdomen. Patient states that even at worse upon admission, abdominal "pain" felt more like cramping. Upon admission lots of small amounts of watery diarrhea with bright red blood noted on the tail end of having a BM a few days into having loose BMs. He noted having occasional cramps. Today continues to have diarrhea but can tolerate food. Review of Systems Constitutional: + increased appetite; no fever, no chill s and no fatigue Respiratory: no cough and no dyspnea Cardiovascular: no chest pain and no palpitations Gastrointestinal: + cramping and + diarrhea/loose stools; no abdominal pain, no nausea and no vomiting Genitourinary: no dysuria or no urinary frequency Musculoskeletal: no myalgia Physical Exam Constitutional: WD/WN, vitals as above Respiratory: normal respiratory effort, lungs clear to auscultation Cardiovascular: RRR, no murmur, no edema Gastrointestinal (Abdomen): Inspection/Auscultation: abdomen normal to inspection and normal bowel sounds Percussion/Palpation: + abdomen tender (slight tenderness r. and l. LQ's ) Musculoskeletal: Extremities: extremities normal to inspection Results & Data Results & Data Vital Signs (Past 12 Hours) Vital Signs Temp Pulse Pulse Resp BP Pulse Ox O2 Del Method 04/16/23 07:50 37.1 C 80 18 120/71 96 Room Air 04/16/23 04:06 37.1 C 79 20 111/68 95 Room Air 04/16/23 02:38 Room Air 04/16/23 00:56 37.0 C 81 20 123/74 94 Room Air 04/15/23 23:10 84
[2023-04-16] MEDS: LACTATED RINGER'S 1,000 ML IV SCH ×2 (13:35→20:40)
--- NOTE | 2023-04-16 18:24 | Billing Data ---
Date of Service April 16, 2023 Coding Level of Care Code 77397 SUB INP/OBS CARE MIN
[2023-04-16] MEDS: ENOXAPARIN INJ 40 MG/0.4 ML SYR SQ SCH (20:40)
[2023-04-17] MEDS: PIPERACILLIN/TAZOBACTAM 4.5 GM in DEXTROSE 5% MINI-B 100 ML IV SCH ×3 (01:55→16:57)
[2023-04-17] MEDS: LACTATED RINGER'S 1,000 ML IV SCH ×3 (04:10→19:44)
[2023-04-17 06:41] LABS: Hematocrit (blood only) 38.8 % (42.0-52.0); Hemoglobin 13.2 g/dl (14.0-18.0); Mean Corpuscular Volume 93.9 fL (80.0-100.0); Mean Platelet Volume 8.8 fL (9.4-12.4); Platelet Count 387 K/uL (130-400); RDW Coefficient of Variation 12.5 % (11.5-14.5); RDW Standard Deviation 43.5 fL (36.4-46.3); Red Blood Count 4.13 M/uL (4.70-6.10); White Blood Count 10.79 K/ul (4.8-10.8)
[2023-04-17 07:02] LABS: Albumin Globulin Ratio 1.3 (0.9-2); Albumin Level 3.6 gm/dl (3.4-5.0); Bilirubin,Total 0.4 mg/dl (0.2-1.0); Creatinine Clr Calc Pharmacy 62.9 ml/min; Est GFR (African American) 88.6 ml/min; Est GFR (Non-African American) 76.5 ml/min; Globulin 2.8 gm/dl (2.5-4.0); Potassium 3.8 mmol/L (3.5-5.1); Total Protein 6.4 gm/dl (6.0-8.3)
[2023-04-17 07:07] LABS: Basophils # (auto) 0.04 K/uL (0.00-0.20); Basophils % (auto) 0.4 %; Eosinophils # (auto) 0.51 K/uL (0.00-0.50); Eosinophils % (auto) 4.7 %; Immature Granulocytes # (auto) 0.13 K/uL (0.01-0.20); Immature Granulocytes % (auto) 1.2 %; Lymphocytes # (auto) 2.37 K/uL (1.20-3.40); Monocytes # (auto) 1.24 K/uL (0.11-0.59); Monocytes % (auto) 11.5 %; Neutrophils % (auto) 60.2 %; RBC Morphology Unremarkable
--- NOTE | 2023-04-17 07:59 | Hospitalist Progress Note ---
Date of Service April 17, 2023 Assessment & Plan (1) Sigmoid diverticulitis: (2) Hypertension: (3) Hyperlipidemia: Plan Pt is a 67 yo male with a past medical history of HTN, HLD, and nicotine dependence who presents to the hospital on 04/14/23 for diverticulitis. Sigmoid diverticulitis - CT 04/10 showed thickening in the sigmoid and proximal transverse colon compatible with infectious/inflammatory colitis w/o abscess - CT 04/14 showed sigmoid diverticulitis with improvement in inflammation but possible new focus in distal descending colon, possible developing phlegmon - pt was on ciprofloxacin 500 mg BID and metronidazole 500 mg TID x7 days as an outpatient after visit on 04/10 but retuned to hosp due to continued bloody diarrhea and abd pain - continue zofran prn, famotidine - IVF NS 80/hr switched to LR 125/hr - continue IV zosyn - continue full liquid diet, plan to advance to regular diet as tolerated - repeat CT to look for abscess formation, if pt worsens Bloody diarrhea - ongoing for several days now, bright red blood - c diff negative, stool panel negative - suspect secondary to bleeding internal hemorrhoid, as bleeding is bright red and at end of BMs - hemoglobin has been stable, WBC WNL (04/17/23) again, daily CBCs BP: baseline Hypertension/ hospital Hypotension - losartan still held, pt normotensive Cigarette smoker - Tobacco cigarette smoker; 50-year history; currently 4 cigarettes/daily Hyperlipidemia - Hold atorvastatin Full code VTE PPx: SCDs, Lovenox 40 mg SQ q24h Admission and Anticipated Discharge Date Admission Date: April 14, 2023 Supervising Physician Co-Signing Physician Notes I personally examined the patient and verified all miranda points of history and exam, discussed case, and agree with decision making with Dr Bashir generally feeling ok - off and on cramping pain but in between feeling better. full liquids going well so far. vitals noted nad heent nc at mmm breathing unlabored no accessory muscles good effort skin no rashes no pallor or icterus diverticulitis w microperforation - Continue zosyn, supportive care, serial exams, full liquid today hopefully can advance further tomorrow. showing progress, hopefully home soon hematochezia - suspect hemorrhoidal. hemodynamically stable. follow. outpt scope ~1-2months. otherwise as above Subjective Pt is a 67 yo male with a past medical history of HTN, HLD, and nicotine dependence who presents to the hospital on 04/14/23 for persistent diverticulitis. Today, pt states he is feeling well, eating jello, broth, sherbet, transition to full liquids for dinner. Is regaining his appetite and wants to eat. Colonoscopy 5-6 years ago that was totally normal, per patient. No more pain felt on left than right side of abdomen. Patient states that even at worse upon admission, abdominal "pain" felt more like cramping. Upon admission lots of small amounts of watery diarrhea with bright red blood noted on the tail end of having a BM a few days into having loose BMs. He noted having occasional cramps. Today continues to have diarrhea but can tolerate food. Review of Systems Review of Systems: Per HPI. Constitutional: + increased appetite; no fever, no chill s and no fatigue Respiratory: no cough and no dyspnea Cardiovascular: no chest pain and no palpitations Gastrointestinal: + cramping (cramping pain during BM's) a nd + diarrhea/loose stools; no abdominal pain, no nausea and no vomiting Genitourinary: no dysuria or no urinary frequency Musculoskeletal: no myalgia Physical Exam Constitutional: WD/WN, vitals as above Respiratory: normal respiratory effort, lungs clear to auscultation Cardiovascular: RRR, no murmur, no edema Gastrointestinal (Abdomen): Inspection/Auscultation: abdomen normal to inspection and normal bowel sounds Percussion/Palpation: + abdomen tender (slight tenderness r. and l. LQ's ) Musculoskeletal: Extremities: extremities normal to inspection Results & Data Results & Data Vital Signs (Past 12 Hours) Vital Signs Temp Pulse Pulse Resp BP Pulse Ox O2 Del Method 04/17/23 07:34 81 04/17/23 06:17 36.8 C 95 H 20 131/78 95 Room Air 04/17/23 00:21 37.1 C 87 20 122/65 94 Room Air 04/16/23 22:05 64
[2023-04-17] MEDS: FAMOTIDINE 20 MG in SYRINGE 3 ML IV SCH ×2 (08:30→20:37)
--- NOTE | 2023-04-17 17:42 | Billing Data ---
Date of Service April 17, 2023 Coding Level of Care Code 97311 SUB INP/OBS CARE MIN
[2023-04-17] MEDS: ENOXAPARIN INJ 40 MG/0.4 ML SYR SQ SCH (20:27)
[2023-04-18] MEDS: PIPERACILLIN/TAZOBACTAM 4.5 GM in DEXTROSE 5% MINI-B 100 ML IV SCH ×3 (01:26→16:08)
[2023-04-18] MEDS: LACTATED RINGER'S 1,000 ML IV SCH ×2 (03:23→11:26)
[2023-04-18 07:17] LABS: Albumin Globulin Ratio 1.2 (0.9-2); Albumin Level 3.1 gm/dl (3.4-5.0); BUN Creatinine Ratio 2.9 (10-20); Bilirubin,Total 0.4 mg/dl (0.2-1.0); Calcium 8.3 mg/dl (8.6-10.3); Creatinine Clr Calc Pharmacy 61.1 ml/min; Est GFR (African American) 85.5 ml/min; Est GFR (Non-African American) 73.8 ml/min; Globulin 2.5 gm/dl (2.5-4.0); Potassium 3.8 mmol/L (3.5-5.1); Total Protein 5.6 gm/dl (6.0-8.3)
--- NOTE | 2023-04-18 07:19 | Hospitalist Progress Note ---
Date of Service April 18, 2023 Assessment & Plan (1) Sigmoid diverticulitis: (2) Hypertension: (3) Hyperlipidemia: Plan Pt is a 67 yo male with a past medical history of HTN, HLD, and nicotine dependence who presents to the hospital on 04/14/23 for diverticulitis. Sigmoid diverticulitis w microperforation - pt was on ciprofloxacin 500 mg BID and metronidazole 500 mg TID x7 days as an outpatient after visit on 04/10 but returned to hospital due to continued bloody diarrhea and abd pain - CT 04/14 showed sigmoid diverticulitis with improvement in inflammation but possible new focus in distal descending colon, possible developing phlegmon - Started IV zosyn - continue - continue zofran prn, famotidine -Diet advanced today to low fiber today -if tolerated well, discharge tomorrow Hematochezia - ongoing for several days now, bright red blood - c diff negative, stool panel negative - suspect secondary to bleeding internal hemorrhoid, as bleeding is bright red and at end of BMs - hemoglobin has been stable, WBC WNL (04/17/23) again, daily CBCs BP: baseline Hypertension/ hospital Hypotension - losartan still held, pt normotensive Cigarette smoker - Tobacco cigarette smoker; 50-year history; currently 4 cigarettes/daily Hyperlipidemia - Hold atorvastatin Code: Full code DVT PPx: SCDs, Lovenox 40 mg SQ q24h FEN/GI: low fiber Admission and Anticipated Discharge Date Admission Date: April 14, 2023 Supervising Physician Co-Signing Physician Notes Resident Physician Supervision Note: I independently interviewed and examined the patient and verified the miranda history and physical, reviewed labs and image studies and agree with resident findings and care plan. Subjective Pt is a 67 yo male with a past medical history of HTN, HLD, and nicotine dependence who presents to the hospital on 04/14/23 for persistent diverticulitis. Today, pt states he is feeling well. Diet will be advanced today. Colonoscopy 5- 6 years ago that was totally normal, per patient. No more pain felt on left than right side of abdomen. Patient states that even at worse upon admission, abdominal "pain" felt more like cramping. Upon admission lots of small amounts of watery diarrhea with bright red blood noted on the tail end of having a BM a few days into having loose BMs. He noted having occasional cramps. Today continues to have diarrhea but can tolerate food. Review of Systems Review of Systems: Per HPI. Physical Exam Constitutional: WD/WN, vitals as above Respiratory: normal respiratory effort, lungs clear to auscultation Cardiovascular: RRR, no murmur, no edema Gastrointestinal (Abdomen): Inspection/Auscultation: abdomen normal to inspection and normal bowel sounds Percussion/Palpation: + abdomen tender (slight tenderness r. and l. LQ's ) Musculoskeletal: Extremities: extremities normal to inspection Results & Data Results & Data Vital Signs (Past 12 Hours) Vital Signs Temp Pulse Pulse Resp BP Pulse Ox O2 Del Method 04/18/23 03:20 36.8 C 61 16 107/65 96 Room Air 04/17/23 23:12 36.7 C 60 16 117/70 99 Room Air 04/17/23 22:00 60 04/17/23 19:39 36.8 C 70 16 123/70 96 Room Air Resident Activity Tracking Resident Involvement: Resident Care Provided Care Provided: Adult Hospital Medicine
[2023-04-18] MEDS: FAMOTIDINE 20 MG in SYRINGE 3 ML IV SCH ×2 (07:50→20:11)
[2023-04-18 08:41] LABS: Hematocrit (blood only) 34.4 % (42.0-52.0); Hemoglobin 11.6 g/dl (14.0-18.0); Mean Corpuscular Hemoglobin 32.5 pg (25.0-34.0); Mean Corpuscular Hgb Conc 33.7 g/dL (32.0-36.0); Mean Corpuscular Volume 96.4 fL (80.0-100.0); Mean Platelet Volume 9.2 fL (9.4-12.4); Platelet Count 342 K/uL (130-400); RDW Coefficient of Variation 12.9 % (11.5-14.5); RDW Standard Deviation 45.9 fL (36.4-46.3); Red Blood Count 3.57 M/uL (4.70-6.10); White Blood Count 13.07 K/ul (4.8-10.8)
[2023-04-18] MEDS: ADVANCED PROBIOTIC 1250 MG CAPSULE PO SCH (16:07)
[2023-04-18] MEDS: ENOXAPARIN INJ 40 MG/0.4 ML SYR SQ SCH (20:11)
[2023-04-19] MEDS: PIPERACILLIN/TAZOBACTAM 4.5 GM in DEXTROSE 5% MINI-B 100 ML IV SCH ×3 (01:28→17:08)
--- NOTE | 2023-04-19 06:38 | Hospitalist Progress Note ---
Date of Service April 19, 2023 Assessment & Plan (1) Sigmoid diverticulitis: (2) Hypertension: (3) Hyperlipidemia: Plan Pt is a 67 yo male with a past medical history of HTN, HLD, and nicotine dependence who presents to the hospital on 04/14/23 for diverticulitis. Sigmoid diverticulitis w microperforation - pt was on ciprofloxacin 500 mg BID and metronidazole 500 mg TID x7 days as an outpatient after visit on 04/10 but returned to hospital due to continued bloody diarrhea and abd pain - CT 04/14 showed sigmoid diverticulitis with improvement in inflammation but possible new focus in distal descending colon, possible developing phlegmon - Started IV zosyn - continue - continue zofran prn, famotidine -Probiotics started yesterday -Episodes of watery BM yesterday with heavy cramping overnight -CT abdomen today (04/19): Nonspecific proctocolitis, trace of pelvic ascites, extensive sigmoid diverticulosis, Subcentimeter lymph nodes are favored to be reactive. -Proctocolitis likely contributing to worsening of symptoms -Diet was changed to clear liquid and follow Hematochezia - Resolved, had several days of bright red blood -secondary to bleeding internal hemorrhoid, C diff neg BP: baseline Hypertension/ hospital Hypotension - losartan still held, pt normotensive Cigarette smoker - Tobacco cigarette smoker; 50-year history; currently 4 cigarettes/daily Hyperlipidemia - Hold atorvastatin Code: Full code DVT PPx: SCDs, Lovenox 40 mg SQ q24h FEN/GI: clear liquid Admission and Anticipated Discharge Date Admission Date: April 14, 2023 Supervising Physician Co-Signing Physician Notes Resident Physician Supervision Note: I independently interviewed and examined the patient and verified the miranda h istory and physical, reviewed labs and image studies and agree with resident findings and care plan. Subjective Pt is a 67 yo male with a past medical history of HTN, HLD, and nicotine dependence who presents to the hospital on 04/14/23 for persistent diverticulitis. Admitted due to lots of small amounts of watery diarrhea with bright red blood, with cramps. Had a colonoscopy 5-6 years ago, normal per patient Diet was advanced yesterday, to low fiber diet. Patient refers having BM of watery diarrhea and "cramping pain for 2 hours. He refers pain is worse since yesterday. no nausea. Review of Systems Review of Systems: Per HPI. Physical Exam Constitutional: WD/WN, vitals as above Respiratory: normal respiratory effort, lungs clear to auscultation Cardiovascular: RRR, no murmur, no edema Gastrointestinal (Abdomen): Inspection/Auscultation: abdomen normal to inspection and normal bowel sounds Percussion/Palpation: + abdomen tender (slight tenderness left lower quadrant) Musculoskeletal: Extremities: extremities normal to inspection Results & Data Results & Data Vital Signs (Past 12 Hours) Vital Signs Temp Pulse Pulse Resp BP Pulse Ox O2 Del Method 04/19/23 04:22 60 04/19/23 03:38 37.3 C 71 18 121/74 97 Room Air 04/18/23 22:56 37.1 C 68 18 103/65 96 Room Air 04/18/23 19:29 36.9 C 72 18 101/62 96 Room Air Resident Activity Tracking Resident Involvement: Resident Care Provided Care Provided: Adult Hospital Medicine
[2023-04-19 08:00] LABS: Albumin Globulin Ratio 1.3 (0.9-2); Albumin Level 3.7 gm/dl (3.4-5.0); BUN Creatinine Ratio 3.8 (10-20); Bilirubin,Total 0.5 mg/dl (0.2-1.0); Calcium 9.1 mg/dl (8.6-10.3); Creatinine Clr Calc Pharmacy 59.4 ml/min; Est GFR (African American) 82.6 ml/min; Est GFR (Non-African American) 71.3 ml/min; Globulin 2.9 gm/dl (2.5-4.0); Total Protein 6.6 gm/dl (6.0-8.3)
[2023-04-19] MEDS: ADVANCED PROBIOTIC 1250 MG CAPSULE PO SCH (08:21)
[2023-04-19] MEDS: FAMOTIDINE 20 MG in SYRINGE 3 ML IV SCH (08:23)
[2023-04-19] MEDS ORDERED: ADVANCED PROBIOTIC 1250 MG CAPSULE PO SCH (09:00)
[2023-04-19] MEDS ORDERED: OPTIRAY 320 100ml IV ONE (10:05)
--- NOTE | 2023-04-19 10:41 | CT Scan Report ---
ABDOMEN AND PELVIS CT WITH IV CONTRAST CT DOSE: 917.95 mGy.cm HISTORY: Patient presents with acute pain within the midline pelvis and rectum rectal pain TECHNIQUE: Multiaxial CT images of the abdomen and pelvis were performed following the IV administrat ion of 91 cc of Optiray, A dose lowering technique was utilized adhering to the principles of ALARA. COMPARISON STUDY: 04/14/2023, 04/10/2023 FINDINGS: Coronary arterial calcifications. Trace pleural effusions. 3 mm solid nodule in the left lo wer lobe. Pulmonary emphysema with a few scattered calcified pulmonary granulomata. No free air. Calc ified granulomata of the spleen. Unremarkable pancreas and adrenal glands. Contracted gallbladder. Ca lcified granulomata of the liver. No suspicious hepatic mass lesions. Patency of the portal vein. There are a few subcentimeter hypodensities of the kidneys which are technically too small to charact erize however favor probable cysts. No hydronephrosis. Urinary bladder wall thickening with partial d istention. Prostatomegaly. Small fat filled inguinal hernias. Atherosclerosis of the aorta without an eurysm. Lymph nodes measuring up to 8 mm are again noted adjacent to the inferior mesenteric vein. No bowel obstruction. There is again circumferential wall thickening noted within the colon, most pro nounced in the rectosigmoid. Colonic diverticulosis. Fluid-filled appendix, likely secondary to the c olonic process. Mild pericolonic and perirectal stranding with trace free pelvic fluid. Colorectal ai r fluid levels are again noted. No fluid collections. Unremarkable soft tissues. Surgical clips of th e scrotum. No acute fracture. IMPRESSION: 1. Findings are again compatible compatible with a nonspecific proctocolitis. No pneumoperitoneum or abscess. 2. Trace pelvic ascites. 3. Subcentimeter lymph nodes are favored to be reactive. 4. Extensive sigmoid diverticulosis. 5. Trace pleural effusions. 6. Additional findings as above. ACT 112: Negative or not required by law. The above report was generated using voice recognition software. It may contain grammatical, syntax o r spelling errors. Electronically signed by: Osvaldo Tavarez M.D. 04/19/2023 10:39 AM
[2023-04-19] MEDS ORDERED: ONDANSETRON INJ 2 MG/ML 2 ML VIAL IV PRN (17:29)
[2023-04-19] MEDS: FAMOTIDINE 20 MG TAB PO SCH (20:12)
[2023-04-19] MEDS: ENOXAPARIN INJ 40 MG/0.4 ML SYR SQ SCH (20:13)
[2023-04-20] MEDS: PIPERACILLIN/TAZOBACTAM 4.5 GM in DEXTROSE 5% MINI-B 100 ML IV SCH ×3 (00:45→16:57)
--- NOTE | 2023-04-20 06:41 | Hospitalist Progress Note ---
Date of Service April 20, 2023 Assessment & Plan (1) Sigmoid diverticulitis: (2) Hypertension: (3) Hyperlipidemia: Plan Pt is a 67 yo male with a past medical history of HTN, HLD, and nicotine dependence who presents to the hospital on 04/14/23 for diverticulitis. Sigmoid diverticulitis w microperforation Proctocolitis - pt was on ciprofloxacin 500 mg BID and metronidazole 500 mg TID x7 days as an outpatient after visit on 04/10 but returned to hospital due to continued bloody diarrhea and abd pain - CT 04/14 showed sigmoid diverticulitis with improvement in inflammation but possible new focus in distal descending colon, possible developing phlegmon - continue Zofran prn, famotidine -CT abdomen today (04/19): Nonspecific proctocolitis, trace of pelvic ascites, extensive sigmoid diverticulosis, Subcentimeter lymph nodes are favored to be reactive. -Proctocolitis likely contributing to worsening of symptoms, worsening pain overnight, low appetite -GI consulted today -repeat C diff -hydrocortisone rectal suppository -No colonoscopy at this moment, GI will follow outpatient Continue Zosyn, probiotics NPO, IV fluids Hematochezia - had several days of bright red blood -secondary to bleeding internal hemorrhoid, C diff neg BP: baseline Hypertension/ hospital Hypotension - losartan still held, pt normotensive Cigarette smoker - Tobacco cigarette smoker; 50-year history; currently 4 cigarettes/daily Hyperlipidemia - Hold atorvastatin Code: Full code DVT PPx: SCDs, Lovenox 40 mg SQ q24h FEN/GI: NPO Admission and Anticipated Discharge Date Admission Date: April 14, 2023 Supervising Physician Co-Signing Physician Notes Resident Physician Supervision Note: I independently interviewed and examined the patient and verified the miranda history and physical, reviewed labs and image studies and agree with resident findings and care plan. worsening symptoms from proctocolitis - was up often during the night and having pain with defecation. appetite is now suppressed. still noting slight blood when wiping. no blood in stool itself. no fever. o/e - some distress. abdomen - soft, minimal to no tenderness. no respiratory distress. acute diverticulitis with proctocolitis - - switched to NPO status. restart IVF, - GI consult check C diff hydrocortisone suppository unable to perform colonoscopy now d/t diverticulitis. to be done in 8 wks -continue zosyn Lovenox for dvt proph Subjective Pt is a 67 yo male with a past medical history of HTN, HLD, and nicotine dependence who presents to the hospital on 04/14/23 for persistent diverticulitis. Admitted due to lots of small amounts of watery diarrhea with bright red blood, with cramps. Had a colonoscopy 5-6 years ago, normal per patient Patient was place don clear liquid yesterday. He refers pain is worse since yesterday with nausea. Low appetite Review of Systems Review of Systems: Per HPI. Physical Exam Constitutional: WD/WN, vitals as above Respiratory: normal respiratory effort, lungs clear to auscultation Cardiovascular: RRR, no murmur, no edema Gastrointestinal (Abdomen): Inspection/Auscultation: abdomen normal to inspection and normal bowel sounds Percussion/Palpation: + abdomen tender (slight tenderness left lower quadrant) Musculoskeletal: Extremities: extremities normal to inspection Results & Data Results & Data Vital Signs (Past 12 Hours) Vital Signs Temp Pulse Pulse Resp BP Pulse Ox O2 Del Method 04/20/23 03:12 36.5 C 111 H 18 122/81 94 Room Air 04/20/23 00:00 71 04/19/23 23:08 93 H 18 138/90 93 Room Air 04/19/23 19:27 37.6 C H 84 16 121/72 96 Room Air Resident Activity Tracking Resident Involvement: Resident Care Provided Care Provided: Adult Hospital Medicine
[2023-04-20 07:24] LABS: Hematocrit (blood only) 37.2 % (42.0-52.0); Hemoglobin 12.6 g/dl (14.0-18.0); Mean Corpuscular Hemoglobin 32.1 pg (25.0-34.0); Mean Corpuscular Hgb Conc 33.9 g/dL (32.0-36.0); Mean Corpuscular Volume 94.7 fL (80.0-100.0); Mean Platelet Volume 9.1 fL (9.4-12.4); Platelet Count 347 K/uL (130-400); RDW Coefficient of Variation 12.9 % (11.5-14.5); RDW Standard Deviation 44.7 fL (36.4-46.3); Red Blood Count 3.93 M/uL (4.70-6.10); White Blood Count 13.08 K/ul (4.8-10.8)
[2023-04-20 09:04] LABS: Albumin Globulin Ratio 1.2 (0.9-2); Albumin Level 3.4 gm/dl (3.4-5.0); BUN Creatinine Ratio 3.7 (10-20); Bilirubin,Total 0.5 mg/dl (0.2-1.0); Calcium 8.8 mg/dl (8.6-10.3); Creatinine Clr Calc Pharmacy 57.7 ml/min; Est GFR (African American) 79.8 ml/min; Est GFR (Non-African American) 68.9 ml/min; Globulin 2.9 gm/dl (2.5-4.0); Potassium 3.5 mmol/L (3.5-5.1); Total Protein 6.3 gm/dl (6.0-8.3)
[2023-04-20] MEDS ORDERED: LACTATED RINGER'S 500 ML IV ONE (09:13)
[2023-04-20] MEDS: ACETAMINOPHEN 325 MG TAB PO SCH ×3 (10:30→21:56)
[2023-04-20] MEDS: LACTATED RINGER'S 1,000 ML IV SCH ×2 (10:30→18:03)
[2023-04-20] MEDS: FAMOTIDINE 20 MG TAB PO SCH ×2 (10:31→21:56)
[2023-04-20] MEDS: ADVANCED PROBIOTIC 1250 MG CAPSULE PO SCH (10:31)
--- NOTE | 2023-04-20 10:42 | Gastrointestinal Consultation ---
Date of Consultation April 20, 2023 Assessment & Plan (1) Colitis: Patient with recent diverticulitis, he had symptoms of pain, rectal bleeding and diarrhea. currently his main issues are ongoing diarrhea and rectal discomfort. Discussed case and reviewed hospital course/records with Dr. Cortes who advised on plan. questions answered with patient and his . - patient does not wish to advance diet at this time. okay for chips and sips. - check stools for c diff. - start hydrocortisone rectal suppository once daily to see if this helps with inflammation. - continue with zosyn. - unable to perform colonoscopy given recent diverticulitis. Can plan to perform in 8 weeks. Supervising Physician Co-Signing Physician Notes I saw the patient and agree with the findings as documented by [facility] History of Present Illness Reason for Consultation: proctocolitis, rectal bleeding Requesting Physician: Kimmy Justin MD Attending Physician: Kimmy Justin MD History of Present Illness Patient is a 67 year old male with a past medical history of HTN, HLD, who presented to the ED on 04/14/23 for recurrent diverticulitis. He tells me that roughly two weeks ago he had started with symptoms of abdominal pain, diarrhea, and rectal bleeding. He was seen in the ER on 04/10 and diagnosed wtih diverticulitis. He was given cipro and flagyl but did not see improvement of symptoms so he returned to the ED on 04/14. At that time he had a CT scan done 04/14 showing sigmoid diverticulitis with improvement in inflammation but possible new focus in distal descending colon, possible developing phlegmon. He was admitted and started on zosyn. He was seeing improvement in symptoms and tells me rectal bleeding and pain have resolved but he has had ongoing diarrhea. He tells me diarrhea significantly became worse after he was starting to advance his diet. He had negative stool studies on 04/14 but he feels diarrhea had become worse after this time. He also reports rectal pain, worse after a bowel movement and also some incontinence of feces. no melena. He had a repeat CT on 04/19 showing nonspecific proctocolitis, trace ascites, extensive sigmoid diverticulosis, and lymph nodes that are favored to be reactive. Diet was decreased back to NPO status today and he tells me that since this his diarrhea has slown down somewhat. Allergies Allergy/AdvReac Type Severity Reaction Status Date / Time erythromycin base Allergy Mild RASH Verified 04/10/23 10:24 tetracycline Allergy Mild RASH Verified 04/10/23 10:24 Home Medications Medication Instructions Recorded Confirmed Type wypgpybuikrs-[id number] 1 tab PO QAM 12/18/19 04/14/23 History tablet (Multivitamin 50 Plus tablet) fluticasone propionate 50 2 spray intranasal QAM 06/22/22 04/14/23 History mcg/actuation nasal spray,suspension (Flonase Allergy Relief) atorvastatin 40 mg tablet 40 mg PO QAM 04/10/23 04/14/23 History ciprofloxacin HCl 500 mg tablet 500 mg PO BID #14 tabs 04/10/23 04/14/23 Rx losartan 25 mg tablet 25 mg PO QAM 04/10/23 04/14/23 History metronidazole 500 mg tablet 500 mg PO Q8H 7 days #21 tabs 04/10/23 04/14/23 Rx montelukast 10 mg tablet 10 mg PO QAM 04/10/23 04/14/23 History Patient History Medical History Toxic effect of other tobacco and nicotine, undetermined, sequela History of kidney stones History of nasal polyp Hypertension Surgical History Hx of vasectomy History of colonoscopy with polypectomy (08/2016) tubular adenoma and hyperplastic polyp removed, repeat recommended in 5 years. History of nasal polypectomy H/O lithotripsy Family History Mother Colorectal cancer Family history of reaction to anesthesia nausea Grandmother Diabetes Grandmother (Paternal) Family history of diabetes mellitus Son Hypereosinophilic syndrome Son Hypereosinophilic syndrome Denies family history of Ovarian cancer Prostate cancer Heart disease Myocardial infarction Breast cancer Lung cancer Stroke Social History Smoking Status: Current some day smoker Tobacco Type: Cigarettes Age Started Using Tobacco: 26; packs per day: 0.25; Cigarettes Per Day: 4; Second Hand Exposure: Yes; Do You Dip or Chew Tobacco: No; Tobacco Cessation Education Requested by Patient: No Hx Alcohol Use: No Hx Substance Use: No Preferred Language: Omani Communication Ability: Effective Visual Impairment: No Limitations Hearing Ability: Normal Atmospheric Chemist Required: No Beliefs That Will Affect Care: None marital status: Current Living Situation: Family current occupational status: retired current occupation: used to work in sales with [employer] Other Information That Helps Us Care for You: No Feels Safe at Home: Yes Safety Concerns: Feels Safe At This Time Childhood Exposure to Second-Hand Smoke: Yes Diet: regular caffeine: Yes Dental Care, Regularly: Yes Physical Activity Frequency: Does not Exercise Seatbelt Use: always Sunscreen Use: Yes Assistive Devices: None Review of Systems Review of Systems: All systems reviewed & are unremarkable except as noted in HPI & below Physical Exam Constitutional: WD/WN, vitals as above Respiratory: normal respiratory effort, lungs clear to auscultation Cardiovascular: RRR, no murmur, no edema Gastrointestinal (Abdomen): normal bowel sounds, soft, nontender, no guarding. Skin: no rashes, warm and dry Psychiatric: Orientation: alert and oriented x 3 Affect: euthymic affect Results & Data Vital Signs (Past 12 Hours) Vital Signs Temp Pulse Pulse Resp BP Pulse Ox O2 Del Method 04/20/23 07:24 97.9 F 92 H 18 127/82 96 Room Air 04/20/23 03:12 97.7 F 111 H 18 122/81 94 Room Air 04/20/23 00:00 71 04/19/23 23:08 93 H 18 138/90 93 Room Air PG Care Time/CCT Total # of Minutes Spent Total Time Spent with Patient: Total time spent is greater than 50% in coordination of care (as documented) at patient's floor/unit and/or counseling patient: Coding Level of Care Code 34214 INT INP/OBS CARE 3/75MIN Diagnoses Colitis K52.9 Time Spent (min) 79
[2023-04-20] MEDS ORDERED: HYDROCORTISONE ACETATE 25 MG SUPP PR SCH (17:00)
[2023-04-20] MEDS: ENOXAPARIN INJ 40 MG/0.4 ML SYR SQ SCH (21:56)
[2023-04-21] MEDS: PIPERACILLIN/TAZOBACTAM 4.5 GM in DEXTROSE 5% MINI-B 100 ML IV SCH ×3 (01:57→17:45)
[2023-04-21] MEDS: LACTATED RINGER'S 1,000 ML IV SCH ×3 (02:29→15:24)
[2023-04-21 05:24] LABS: Albumin Globulin Ratio 1.2 (0.9-2); Albumin Level 3.4 gm/dl (3.4-5.0); BUN Creatinine Ratio 4.6 (10-20); Bilirubin,Total 0.5 mg/dl (0.2-1.0); Calcium 8.7 mg/dl (8.6-10.3); Creatinine Clr Calc Pharmacy 58.3 ml/min; Est GFR (African American) 80.7 ml/min; Est GFR (Non-African American) 69.7 ml/min; Globulin 2.8 gm/dl (2.5-4.0); Magnesium 1.9 mg/dl (1.7-2.4); Phosphorus 3.5 mg/dl (2.5-4.9); Potassium 3.9 mmol/L (3.5-5.1); Total Protein 6.2 gm/dl (6.0-8.3)
[2023-04-21 05:28] LABS: Hematocrit (blood only) 35.2 % (42.0-52.0); Hemoglobin 11.9 g/dl (14.0-18.0); Mean Corpuscular Hemoglobin 31.9 pg (25.0-34.0); Mean Corpuscular Hgb Conc 33.8 g/dL (32.0-36.0); Mean Corpuscular Volume 94.4 fL (80.0-100.0); Mean Platelet Volume 9.3 fL (9.4-12.4); Platelet Count 338 K/uL (130-400); RDW Standard Deviation 44.7 fL (36.4-46.3); Red Blood Count 3.73 M/uL (4.70-6.10); White Blood Count 9.27 K/ul (4.8-10.8)
[2023-04-21] MEDS: ACETAMINOPHEN 325 MG TAB PO SCH ×4 (05:51→20:42)
--- NOTE | 2023-04-21 06:39 | Hospitalist Progress Note ---
Date of Service April 21, 2023 Assessment & Plan (1) Sigmoid diverticulitis: (2) Hypertension: (3) Hyperlipidemia: Plan Pt is a 67 yo male with a past medical history of HTN, HLD, and nicotine dependence who presents to the hospital on 04/14/23 for diverticulitis. Sigmoid diverticulitis w microperforation Proctocolitis - pt was on ciprofloxacin 500 mg BID and metronidazole 500 mg TID x7 days as an outpatient after visit on 04/10 but returned to hospital due to continued bloody diarrhea and abd pain -CT abdomen today (04/19): Nonspecific proctocolitis, trace of pelvic ascites, extensive sigmoid diverticulosis, Subcentimeter lymph nodes are favored to be reactive. -Proctocolitis likely contributing to worsening of symptoms, worsening pain overnight, low appetite - C-diff negative -GI consulted recommendations - d/c hydrocortisone rectal suppository -No colonoscopy at this moment, GI will follow in 8 week, outpatient -IV Solumedrol 40 mg BID started today Continue Zosyn, probiotics, continue Zofran prn, famotidine NPO, IV fluids Hematochezia - Resolved, no bright red blood -secondary to bleeding internal hemorrhoid, C diff neg BP: baseline Hypertension/ - Losartan restarted, hospital hypotension resolved Cigarette smoker - Tobacco cigarette smoker; 50-year history; currently 4 cigarettes/daily Hyperlipidemia - Hold atorvastatin Code: Full code DVT PPx: SCDs, Lovenox 40 mg SQ q24h FEN/GI: NPO Admission and Anticipated Discharge Date Admission Date: April 14, 2023 Supervising Physician Co-Signing Physician Notes Resident Physician Supervision Note: I independently interviewed and examined the patient and verified the miranda history and physical, reviewed labs and image studies and agree with resident findings and care plan. Subjective Pt is a 67 yo male with a past medical history of HTN, HLD, and nicotine dependence who presents to the hospital on 04/14/23 for persistent diverticulitis. Admitted due to lots of small amounts of watery diarrhea with bright red blood, with cramps. Had a colonoscopy 5-6 years ago, normal per patient PAtient with no improvement overnight, feeling no better than yesterday. No appetite. No diarrhea, only just passing small amounts of liquid. Review of Systems Review of Systems: Per HPI. Physical Exam Constitutional: WD/WN, vitals as above Respiratory: normal respiratory effort, lungs clear to auscultation Cardiovascular: RRR, no murmur, no edema Gastrointestinal (Abdomen): Inspection/Auscultation: abdomen normal to inspection and normal bowel sounds Percussion/Palpation: abdomen soft; abd omen nontender and no guarding Musculoskeletal: Extremities: extremities normal to inspection Results & Data Results & Data Vital Signs (Past 12 Hours) Vital Signs Temp Pulse Pulse Resp BP Pulse Ox O2 Del Method 04/21/23 03:18 36.6 C 66 16 107/65 96 Room Air 04/20/23 23:35 36.8 C 59 L 14 120/70 95 Room Air 04/20/23 23:06 62 04/20/23 19:48 36.7 C 77 18 155/80 H 95 Room Air Resident Activity Tracking Resident Involvement: Resident Care Provided Care Provided: Adult Hospital Medicine
[2023-04-21] MEDS: FAMOTIDINE 20 MG TAB PO SCH ×2 (09:42→20:42)
[2023-04-21] MEDS: ADVANCED PROBIOTIC 1250 MG CAPSULE PO SCH (09:42)
--- NOTE | 2023-04-21 09:49 | Gastroenterology Progress Note ---
Date of Service April 21, 2023 Assessment & Plan (1) Colitis: Plan: Patient feels no better today after trial of hydrocortisone suppository. Discussed case with Dr. Cortes who helped advise on plan. - start patient on IV solumedrol 40mg bid for the proctocolitis. - will stop hydrocortisone suppository. Admission and Anticipated Discharge Date Admission Date: April 14, 2023 Subjective Patient tells me that he feels no different from yesterday after trial of the hydrocortisone suppository. Still having rectal pain. He tells me that he is not having diarrhea, more so just passing small amounts of liquid. He has some nausea that he feels stems from having the pain. tolerating ice chips but he does not want to advance diet. no abdominal pain. Physical Exam Constitutional: WD/WN, vitals as above Respiratory: normal respiratory effort. Cardiovascular: RRR, no murmur, no edema Gastrointestinal (Abdomen): normal bowel sounds, soft, nontender, no hepatosplenomegaly Skin: no rashes, warm and dry Psychiatric: Orientation: alert and oriented x 3 Results & Data Results & Data Vital Signs (Past 12 Hours) Vital Signs Temp Pulse Pulse Resp BP Pulse Ox O2 Del Method 04/21/23 08:12 97.7 F 91 H 18 138/85 96 Room Air 04/21/23 03:18 97.9 F 66 16 107/65 96 Room Air 04/20/23 23:35 98.2 F 59 L 14 120/70 95 Room Air 04/20/23 23:06 62 PG Care Time/CCT Total # of Minutes Spent Total Time Spent with Patient: Total time spent is greater than 50% in coordination of care (as documented) at patient's floor/unit and/or counseling patient: Coding Level of Care Code 33196 SUB INP/OBS CARE 2/35MIN Diagnoses Colitis K52.9 Time Spent (min) 40
[2023-04-21] MEDS ORDERED: LOSARTAN POTASSIUM 25 MG TAB PO ONE (10:00)
[2023-04-21] MEDS: methylPREDNISolone 40 MG in SYRINGE 0 ML IV SCH ×2 (10:33→20:42)
[2023-04-21] MEDS: ENOXAPARIN INJ 40 MG/0.4 ML SYR SQ SCH (20:41)
[2023-04-22] MEDS: LACTATED RINGER'S 1,000 ML IV SCH ×2 (00:19→08:41)
[2023-04-22] MEDS: PIPERACILLIN/TAZOBACTAM 4.5 GM in DEXTROSE 5% MINI-B 100 ML IV SCH ×3 (00:20→17:09)
[2023-04-22] MEDS: ACETAMINOPHEN 325 MG TAB PO SCH ×4 (02:30→20:02)
--- NOTE | 2023-04-22 06:36 | Hospitalist Progress Note ---
Date of Service April 22, 2023 Assessment & Plan (1) Sigmoid diverticulitis: (2) Hypertension: (3) Hyperlipidemia: Plan Pt is a 67 yo male with a past medical history of HTN, HLD, and nicotine dependence who presents to the hospital on 04/14/23 for diverticulitis. Sigmoid diverticulitis w microperforation Proctocolitis -CT abdomen today (04/19): Nonspecific proctocolitis, trace of pelvic ascites, extensive sigmoid diverticulosis, Subcentimeter lymph nodes are favored to be reactive. -Proctocolitis likely contributing to worsening of symptoms, worsening pain overnight, low appetite - C-diff negative -GI consulted recommendation -No colonoscopy at this moment, GI will follow in 8 week, outpatient -IV Solumedrol 40 mg BID started today Continue probiotics, continue Zofran prn, famotidine D/c fluids, diet advanced to low fiber Hematochezia - Resolved, no bright red blood -secondary to bleeding internal hemorrhoid, C diff neg BP: baseline Hypertension/ - Losartan restarted, hospital hypotension resolved Cigarette smoker - Tobacco cigarette smoker; 50-year history; currently 4 cigarettes/daily Hyperlipidemia - Hold atorvastatin Code: Full code DVT PPx: SCDs, Lovenox 40 mg SQ q24h FEN/GI: low fiber diet Admission and Anticipated Discharge Date Admission Date: April 14, 2023 Supervising Physician Co-Signing Physician Notes Resident Physician Supervision Note: I independently interviewed and examined the patient and verified the miranda history and physical, reviewed labs and image studies and agree with resident findings and care plan. Better with starting IV steroids yesterday. Had to get up last night after having clear liquid diet but the pain wasn't as pronounced. Sigmoid diverticulitis with microperforation Proctocolitis Continue IV steroids Advance diet. h/h stable DVT proph - Lovenox Subjective Pt is a 67 yo male with a past medical history of HTN, HLD, and nicotine dependence who presents to the hospital on 04/14/23 for persistent diverticulitis. Admitted due to lots of small amounts of watery diarrhea with bright red blood, with cramps. Had a colonoscopy 5-6 years ago, normal per patient Patient pain is improving. Tolerated well clear liquids today. Will advance diet today. Review of Systems Review of Systems: Per HPI. Constitutional: + increased appetite; no fever, no chill s and no fatigue Respiratory: no cough and no dyspnea Cardiovascular: no chest pain and no palpitations Gastrointestinal: + cramping (cramping pain during BM's) a nd + diarrhea/loose stools; no abdominal pain, no nausea and no vomiting Genitourinary: no dysuria or no urinary frequency Musculoskeletal: no myalgia Physical Exam Constitutional: WD/WN, vitals as above Respiratory: normal respiratory effort, lungs clear to auscultation Cardiovascular: RRR, no murmur, no edema Gastrointestinal (Abdomen): Inspection/Auscultation: abdomen normal to inspection and normal bowel sounds Percussion/Palpation: abdomen soft; abdomen nontender and no guarding Musculoskeletal: Extremities: extremities normal to inspection Results & Data Results & Data Vital Signs (Past 12 Hours) Vital Signs Temp Pulse Pulse Resp BP Pulse Ox O2 Del Method 04/22/23 02:55 36.7 C 75 18 112/56 L 97 Room Air 04/21/23 23:32 36.7 C 68 18 143/69 H 97 Room Air 04/21/23 21:57 66 04/21/23 19:43 36.8 C 74 18 123/70 93 Room Air 04/21/23 19:32 81 04/21/23 19:32 71 Resident Activity Tracking Resident Involvement: Resident Care Provided Care Provided: Adult Hospital Medicine
[2023-04-22 06:44] LABS: Hematocrit (blood only) 35.2 % (42.0-52.0); Hemoglobin 12.2 g/dl (14.0-18.0); Mean Corpuscular Hemoglobin 32.3 pg (25.0-34.0); Mean Corpuscular Hgb Conc 34.7 g/dL (32.0-36.0); Mean Corpuscular Volume 93.1 fL (80.0-100.0); Mean Platelet Volume 9.3 fL (9.4-12.4); Platelet Count 382 K/uL (130-400); RDW Coefficient of Variation 12.8 % (11.5-14.5); RDW Standard Deviation 43.5 fL (36.4-46.3); Red Blood Count 3.78 M/uL (4.70-6.10); White Blood Count 9.75 K/ul (4.8-10.8)
[2023-04-22 07:05] LABS: Albumin Globulin Ratio 1.2 (0.9-2); Albumin Level 3.4 gm/dl (3.4-5.0); BUN Creatinine Ratio 8.4 (10-20); Bilirubin,Total 0.4 mg/dl (0.2-1.0); Calcium 8.8 mg/dl (8.6-10.3); Creatinine Clr Calc Pharmacy 66.2 ml/min; Est GFR (African American) 94.3 ml/min; Est GFR (Non-African American) 81.3 ml/min; Globulin 2.8 gm/dl (2.5-4.0); Magnesium 1.9 mg/dl (1.7-2.4); Phosphorus 4.1 mg/dl (2.5-4.9); Potassium 4.1 mmol/L (3.5-5.1); Total Protein 6.2 gm/dl (6.0-8.3)
[2023-04-22] MEDS: ADVANCED PROBIOTIC 1250 MG CAPSULE PO SCH (08:28)
[2023-04-22] MEDS: FAMOTIDINE 20 MG TAB PO SCH ×2 (08:28→20:02)
[2023-04-22] MEDS: LOSARTAN POTASSIUM 25 MG TAB PO SCH (08:28)
[2023-04-22] MEDS: methylPREDNISolone 40 MG in SYRINGE 0 ML IV SCH ×2 (08:29→20:02)
--- NOTE | 2023-04-22 09:42 | Gastroenterology Progress Note ---
Date of Service April 22, 2023 Assessment & Plan (1) Colitis: (2) Diverticulitis: Plan Overall, patient is improving since starting IV steroids. He has his appetite back, he is tolerating diet, and he has had less frequent trips to the restroom. Discussed case with Dr. Cortes who also saw patient this morning. - continue with IV solumedrol 40mg bid. upon discharge, can discharge home on a prednisone 40mg daily with a 5mg a week taper. - given recent diverticulitis and colitis, will need updated colonoscopy in 8 weeks to further evaluate. - if tolerating diet today, can advance as tolerated. - if diarrhea returns with advancement of diet would consider binder such as questran 4gm daily. Admission and Anticipated Discharge Date Admission Date: April 14, 2023 Subjective Patient feeling significantly better since starting IV steroids. He tells me he has been having less trips to the bathroom and rectal pain has improved. he denies any bleeding. He has been tolerating his diet since starting the steroids. He feels this is the best he has felt in several days. Physical Exam Constitutional: WD/WN, vitals as above Respiratory: normal respiratory effort, lungs clear to auscultation Cardiovascular: RRR, no murmur, no edema Gastrointestinal (Abdomen): normal bowel sounds, soft, nontender, no hepatosplenomegaly Skin: no rashes, warm and dry Psychiatric: Orientation: alert and oriented x 3 Affect: euthymic affect Results & Data Results & Data Vital Signs (Past 12 Hours) Vital Signs Temp Pulse Pulse Resp BP Pulse Ox O2 Del Method 04/22/23 07:51 98.8 F 69 16 109/62 94 Room Air 04/22/23 07:21 86 04/22/23 02:55 98.1 F 75 18 112/56 L 97 Room Air 04/21/23 23:32 98.1 F 68 18 143/69 H 97 Room Air 04/21/23 21:57 66 PG Care Time/CCT Total # of Minutes Spent Total Time Spent with Patient: Total time spent is greater than 50% in coordination of care (as documented) at patient's floor/unit and/or counseling patient: Coding Level of Care Code 68664 SUB INP/OBS CARE 25MIN Diagnoses Colitis K52.9 Diverticulitis K57.92 Time Spent (min) 28
[2023-04-22] MEDS: ENOXAPARIN INJ 40 MG/0.4 ML SYR SQ SCH (20:01)
[2023-04-23] MEDS: PIPERACILLIN/TAZOBACTAM 4.5 GM in DEXTROSE 5% MINI-B 100 ML IV SCH ×2 (00:51→08:48)
[2023-04-23] MEDS: ACETAMINOPHEN 325 MG TAB PO SCH ×2 (02:27→08:48)
[2023-04-23 06:22] LABS: Hemoglobin 10.9 g/dl (14.0-18.0); Mean Corpuscular Hemoglobin 32.3 pg (25.0-34.0); Mean Corpuscular Hgb Conc 34.1 g/dL (32.0-36.0); Mean Platelet Volume 9.3 fL (9.4-12.4); Platelet Count 354 K/uL (130-400); RDW Coefficient of Variation 13.2 % (11.5-14.5); RDW Standard Deviation 45.3 fL (36.4-46.3); Red Blood Count 3.37 M/uL (4.70-6.10); White Blood Count 11.29 K/ul (4.8-10.8)
[2023-04-23 07:11] LABS: Albumin Level 3.2 gm/dl (3.4-5.0); Bilirubin,Total 0.5 mg/dl (0.2-1.0); Calcium 8.6 mg/dl (8.6-10.3); Potassium 4.3 mmol/L (3.5-5.1)
[2023-04-23 07:17] LABS: Albumin Globulin Ratio 1.3 (0.9-2); BUN Creatinine Ratio 12.9 (10-20); Creatinine Clr Calc Pharmacy 62.3 ml/min; Est GFR (African American) 87.6 ml/min; Est GFR (Non-African American) 75.5 ml/min; Globulin 2.5 gm/dl (2.5-4.0); Phosphorus 3.9 mg/dl (2.5-4.9); Total Protein 5.7 gm/dl (6.0-8.3)
--- NOTE | 2023-04-23 07:19 | Hospitalist Progress Note ---
Date of Service April 23, 2023 Assessment & Plan (1) Sigmoid diverticulitis: (2) Hypertension: (3) Hyperlipidemia: Plan Pt is a 67 yo male with a past medical history of HTN, HLD, and nicotine dependence who presents to the hospital on 04/14/23 for diverticulitis. Sigmoid diverticulitis w microperforation Proctocolitis -CT abdomen today (04/19): Nonspecific proctocolitis, trace of pelvic ascites, extensive sigmoid diverticulosis, Subcentimeter lymph nodes are favored to be reactive. -Proctocolitis likely contributing to worsening of symptoms, worsening pain overnight, low appetite - C-diff negative -GI consulted recommendation -No colonoscopy at this moment, GI will follow in 8 week, outpatient -continue with IV solumedrol 40mg bid. upon discharge, can discharge home on a prednisone 40mg daily with a 5mg a week taper -if diarrhea returns with advancement of diet would consider binder such as questran 4gm daily. Continue probiotics, continue Zofran prn, famotidine D/c fluids, diet advanced to low fiber Hematochezia - Resolved, no bright red blood -secondary to bleeding internal hemorrhoid, C diff neg BP: baseline Hypertension/ - Losartan restarted, hospital hypotension resolved Cigarette smoker - Tobacco cigarette smoker; 50-year history; currently 4 cigarettes/daily Hyperlipidemia - Hold atorvastatin Code: Full code DVT PPx: SCDs, Lovenox 40 mg SQ q24h FEN/GI: low fiber diet Admission and Anticipated Discharge Date Admission Date: April 14, 2023 Subjective Pt is a 67 yo male with a past medical history of HTN, HLD, and nicotine dependence who presents to the hospital on 04/14/23 for persistent diverticulitis. Admitted due to lots of small amounts of watery diarrhea with bright red blood, with cramps. Had a colonoscopy 5-6 years ago, normal per patient Patient pain is improving. Tolerated well clear liquids today. Will advance diet today. Review of Systems Review of Systems: Per HPI. Physical Exam Constitutional: WD/WN, vitals as above Respiratory: normal respiratory effort, lungs clear to auscultation Cardiovascular: RRR, no murmur, no edema Gastrointestinal (Abdomen): Inspection/Auscultation: abdomen normal to inspection and normal bowel sounds Percussion/Palpation: abdomen soft; abdomen nontender and no guarding Musculoskeletal: Extremities: extremities normal to inspection Results & Data Results & Data Vital Signs (Past 12 Hours) Vital Signs Temp Pulse Pulse Resp BP Pulse Ox O2 Del Method 04/23/23 06:55 53 L 04/23/23 03:10 36.7 C 66 20 117/68 97 Room Air 04/22/23 22:52 36.7 C 58 L 18 106/59 L 96 Room Air 04/22/23 22:05 56 L 04/22/23 19:52 37.1 C 69 16 109/57 L 97 Room Air Resident Activity Tracking Resident Involvement: Resident Care Provided Care Provided: Adult Hospital Medicine
[2023-04-23] MEDS: ADVANCED PROBIOTIC 1250 MG CAPSULE PO SCH (08:47)
[2023-04-23] MEDS: methylPREDNISolone 40 MG in SYRINGE 0 ML IV SCH (08:48)
[2023-04-23] MEDS: LOSARTAN POTASSIUM 25 MG TAB PO SCH (08:48)
[2023-04-23] MEDS: FAMOTIDINE 20 MG TAB PO SCH (09:36)
--- NOTE | 2023-04-23 11:15 | Discharge Summary ---
Date of Service April 23, 2023 Admission HPI Per Admitting Provider Devan is a 67-year-old male with PMH of diverticulitis, colitis, HTN, HLD. He presented to the ED for diarrhea x10 days despite course of antibiotics. Patient finished a 5-day course of Cipro plus Flagyl, but symptoms continue to get worse. Per patient, his stool consistency has ranged from "bubbly bile", to bright red blood in diarrhea. Intermittent abdominal cramping. No radiation to legs/back. No medications taken at home for pain. He reports that he took his morning medications. No hx of diverticulitis to patient's knowledge. No recent changes in diet, although he notes that he has not eaten much in the past 7 days; mainly broth. No sick contacts. Current tobacco cigarette smoker; 4 cigs / day. He denies vaping and recreational drug use. He endorses alcohol use; beer/wine 2 drinks per day. ED course: Zosyn, IVF ROS: Patient endorses loss of appetite, nausea, abdominal cramping, and bloody diarrhea. Patient denies fever, chills, nightsweats, cough, CARVAJAL, dizziness, lightheadedness, vomiting, CP, SOB, pleuritic CP, burning with urination, back pain, numbness/tingling/swelling/pain in LEs. Patient endorses PMHx of kidney stone (treated w/ lithotripsy) Patient denies PMHx of abdominal surgeries, appendectomy, cholecystectomy, hernias, NE, CVA, DVT/PE, diabetes, or cancer. Admission Exam Per Admitting Provider General: no acute distress; mildly anxious; non-toxic appearing; cooperative HEENT: normocephalic, atraumatic; no scleral icterus; PERRLA w/ EOMs intact; moist mucus membrane; vision and hearing grossly intact Neck: supple; no lymphadenopathy; trachea midline Skin: warm, dry without signs of tenting; no cyanosis; no rashes, bruising, lesions, or erythema noted CV: chest wall NTP; RRR; S1/S2 normal; no murmurs/rubs/gallops; pulses intact and symmetric at radial, DP, and PT Lungs: no acute respiratory distress; symmetrical chest wall expansion; clear breath sounds across all lung barcenas w/o adventitious sounds; no wheezing ABD: Soft, NTP; no signs of retroperitoneal hemorrhage; BS present; (-) Perez's sign; (-) McBurney's point tenderness; no rebound/guarding; no ascites; mild distention; NTP in the LLQ MSK: no tics or fasciculations; no edema noted in the LEs b/l; patient demonstrates ability to wiggle toes Neuro: A&Ox3; normal mood and affect; fluent speech; no focal deficits; sensation grossly intact Principal Diagnosis Diverticulosis Proctocolitis Discharge Exam Constitutional WD/WN, vitals as above Respiratory normal respiratory effort, lungs clear to auscultation Cardiovascular RRR, no murmur, no edema Gastrointestinal (Abdomen) normal bowel sounds, soft, nontender, no hepatosplenomegaly Musculoskeletal no cyanosis or clubbing, extremities motor strength 5/5 Skin no rashes, warm and dry Discharge Data Allergies Allergy/AdvReac Type Severity Reaction Status Date / Time erythromycin base Allergy Mild RASH Verified 04/10/23 10:24 tetracycline Allergy Mild RASH Verified 04/10/23 10:24 Consultations 04/14/23 18:53 ED Decision to Admit Stat 04/20/23 09:25 Consult Gastroenterology Routine Ordered Studies Labs 04/14/23 04/14/23 04/15/23 14:18 16:10 05:56 WBC 13.23 H 15.48 H RBC 4.78 4.04 L Hgb 15.4 13.1 L Hct 45.6 38.4 L MCV 95.4 95.0 MCH 32.2 32.4 MCHC 33.8 34.1 RDW Std Deviation 44.3 44.2 RDW Coeff of Ward 12.4 12.6 Plt Count 384 330 MPV 8.8 L 9.0 L Immature Gran % (Auto) 1.7 1.0 Neut % (Auto) 67.6 71.9 Lymph % (Auto) 13.9 10.3 [place] % (Auto) 12.7 11.8 Eos % (Auto) 3.5 4.5 Baso % (Auto) 0.6 0.5 Neut # (Auto) 8.94 H 11.12 H Lymph # (Auto) 1.84 1.60 [place] # (Auto) 1.68 H 1.83 H Eos # (Auto) 0.46 0.70 H Baso # (Auto) 0.08 0.07 Immature Gran # (Auto) 0.23 H 0.16 RBC Morphology Sodium 136 138 Potassium 3.8 3.9 Chloride 103 108 H Carbon Dioxide 26 24 Anion Gap 7 6 BUN 9 8 Creatinine 1.15 1.06 Est Cr Clr Drug Dosing 54.7 59.4 Est GFR ( Amer) 74.8 82.6 Est GFR (Non-Af Amer) 64.6 71.3 BUN/Creatinine Ratio 7.8 L 7.5 L Glucose 126 H 86 Calcium 9.5 8.6 Phosphorus Magnesium Total Bilirubin 0.4 AST 60 H ALT 59 H Alkaline Phosphatase 57 Total Protein 7.4 Albumin 4.1 Globulin 3.3 Albumin/Globulin Ratio 1.2 Lipase 27 Urine Color Yellow Urine Appearance Clear Urine pH 5.5 Ur Specific Lawrence 1.011 Urine Protein Negative Urine Glucose (UA) Negative Urine Ketones Trace H Urine Blood Negative Urine Nitrite Negative Urine Bilirubin Negative Urine Urobilinogen Negative Ur Leukocyte Esterase Trace H Urine WBC (Auto) 1-5 Urine RBC (Auto) 0-4 U Hyaline Cast (Auto) 0 U Epithel Cells (Auto) 5-10 H Urine Bacteria (Auto) Negative Stl C. cayetanensis PCR Not Detected Stool Rotavirus A PCR Not Detected Stl Adenov F 40/41 PCR Not Detected Stool Astrovirus (PCR) Not Detected Stool Campylobacter PCR Not Detected Stl C. diff Tox B Gene Negative Cdiff Gene Stool Cryptosporidium PCR Not Detected Stl E.coli Shiga Tox PCR Not Detected Stl Enterotoxigenic E PCR Not Detected Stool EPEC (PCR) Not Detected Stool EAEC (PCR) Not Detected Stl E. histolytica PCR Not Detected Stool Giardia Lamblia PCR Not Detected Stool Salmonella PCR Not Detected Stool Sapovirus (PCR) Not Detected Stl P. shigelloides PCR Not Detected Stl Shigella/EIEC PCR Not Detected St Y.enterocolitica PCR Not Detected Stool Vibrio (PCR) Not Detected Stl Vibrio cholerae PCR Not Detected Stl Norovirus GI/GII PCR Not Detected 04/16/23 04/17/23 04/18/23 06:16 06:20 06:34 WBC 15.16 H 10.79 RBC 4.11 L 4.13 L Hgb 13.3 L 13.2 L Hct 38.3 L 38.8 L MCV 93.2 93.9 MCH 32.4 32.0 MCHC 34.7 34.0 RDW Std Deviation 42.3 43.5 RDW Coeff of Ward 12.2 12.5 Plt Count 366 387 MPV 8.9 L 8.8 L Immature Gran % (Auto) 1.3 1.2 Neut % (Auto) 68.7 60.2 Lymph % (Auto) 13.7 22.0 [place] % (Auto) 11.0 11.5 Eos % (Auto) 4.8 4.7 Baso % (Auto) 0.5 0.4 Neut # (Auto) 10.42 H 6.50 Lymph # (Auto) 2.07 2.37 [place] # (Auto) 1.67 H 1.24 H Eos # (Auto) 0.73 H 0.51 H Baso # (Auto) 0.08 0.04 Immature Gran # (Auto) 0.19 0.13 RBC Morphology Unremarkable Unremarkable Sodium 139 140 142 Potassium 3.8 3.8 3.8 Chloride 107 108 H 107 Carbon Dioxide 22 24 30 Anion Gap 10 8 5 BUN 7 5 L 3 L Creatinine 0.99 1.00 1.03 Est Cr Clr Drug Dosing 63.5 62.9 61.1 Est GFR ( Amer) 89.7 88.6 85.5 Est GFR (Non-Af Amer) 77.4 76.5 73.8 BUN/Creatinine Ratio 7.1 L 5.0 L 2.9 L Glucose 70 95 94 Calcium 8.6 9.0 8.3 L Phosphorus Magnesium Total Bilirubin 0.4 0.4 0.4 AST 41 H 30 22 ALT 54 H 47 37 Alkaline Phosphatase 47 45 37 Total Protein 6.1 6.4 5.6 L Albumin 3.4 3.6 3.1 L Globulin 2.7 2.8 2.5 Albumin/Globulin Ratio 1.3 1.3 1.2 Lipase Urine Color Urine Appearance Urine pH Ur Specific Lawrence Urine Protein Urine Glucose (UA) Urine Ketones Urine Blood Urine Nitrite Urine Bilirubin Urine Urobilinogen Ur Leukocyte Esterase Urine WBC (Auto) Urine RBC (Auto) U Hyaline Cast (Auto) U Epithel Cells (Auto) Urine Bacteria (Auto) Stl C. cayetanensis PCR Stool Rotavirus A PCR Stl Adenov F 40/41 PCR Stool Astrovirus (PCR) Stool Campylobacter PCR Stl C. diff Tox B Gene Stool Cryptosporidium PCR Stl E.coli Shiga Tox PCR Stl Enterotoxigenic E PCR Stool EPEC (PCR) Stool EAEC (PCR) Stl E. histolytica PCR Stool Giardia Lamblia PCR Stool Salmonella PCR Stool Sapovirus (PCR) Stl P. shigelloides PCR Stl Shigella/EIEC PCR St Y.enterocolitica PCR Stool Vibrio (PCR) Stl Vibrio cholerae PCR Stl Norovirus GI/GII PCR 04/18/23 04/19/23 04/20/23 06:36 07:24 06:40 WBC 13.07 H 13.08 H RBC 3.57 L 3.93 L Hgb 11.6 L 12.6 L Hct 34.4 L 37.2 L MCV 96.4 94.7 MCH 32.5 32.1 MCHC 33.7 33.9 RDW Std Deviation 45.9 44.7 RDW Coeff of Ward 12.9 12.9 Plt Count 342 347 MPV 9.2 L 9.1 L Immature Gran % (Auto) Neut % (Auto) Lymph % (Auto) [place] % (Auto) Eos % (Auto) Baso % (Auto) Neut # (Auto) Lymph # (Auto) [place] # (Auto) Eos # (Auto) Baso # (Auto) Immature Gran # (Auto) RBC Morphology Sodium 140 141 Potassium 4.0 3.5 Chloride 107 108 H Carbon Dioxide 28 26 Anion Gap 5 7 BUN 4 L 4 L Creatinine 1.06 1.09 Est Cr Clr Drug Dosing 59.4 57.7 Est GFR ( Amer) 82.6 79.8 Est GFR (Non-Af Amer) 71.3 68.9 BUN/Creatinine Ratio 3.8 L 3.7 L Glucose 101 H 92 Calcium 9.1 8.8 Phosphorus 4.0 Magnesium 2.0 Total Bilirubin 0.5 0.5 AST 26 21 ALT 40 36 Alkaline Phosphatase 44 43 Total Protein 6.6 6.3 Albumin 3.7 3.4 Globulin 2.9 2.9 Albumin/Globulin Ratio 1.3 1.2 Lipase Urine Color Urine Appearance Urine pH Ur Specific Lawrence Urine Protein Urine Glucose (UA) Urine Ketones Urine Blood Urine Nitrite Urine Bilirubin Urine Urobilinogen Ur Leukocyte Esterase Urine WBC (Auto) Urine RBC (Auto) U Hyaline Cast (Auto) U Epithel Cells (Auto) Urine Bacteria (Auto) Stl C. cayetanensis PCR Stool Rotavirus A PCR Stl Adenov F 40 PCR Stool Astrovirus (PCR) Stool Campylobacter PCR Stl C. diff Tox B Gene Stool Cryptosporidium PCR Stl E.coli Shiga Tox PCR Stl Enterotoxigenic E PCR Stool EPEC (PCR) Stool EAEC (PCR) Stl E. histolytica PCR Stool Giardia Lamblia PCR Stool Salmonella PCR Stool Sapovirus (PCR) Stl P. shigelloides PCR Stl Shigella/EIEC PCR St Y.enterocolitica PCR Stool Vibrio (PCR) Stl Vibrio cholerae PCR Stl Norovirus GI/GII PCR 04/20/23 04/21/23 04/22/23 10:56 04:41 06:10 WBC 9.27 9.75 RBC 3.73 L 3.78 L Hgb 11.9 L 12.2 L Hct 35.2 L 35.2 L MCV 94.4 93.1 MCH 31.9 32.3 MCHC 33.8 34.7 RDW Std Deviation 44.7 43.5 RDW Coeff of Ward 13.0 12.8 Plt Count 338 382 MPV 9.3 L 9.3 L Immature Gran % (Auto) Neut % (Auto) Lymph % (Auto) [place] % (Auto) Eos % (Auto) Baso % (Auto) Neut # (Auto) Lymph # (Auto) [place] # (Auto) Eos # (Auto) Baso # (Auto) Immature Gran # (Auto) RBC Morphology Sodium 141 138 Potassium 3.9 4.1 Chloride 107 105 Carbon Dioxide 27 23 Anion Gap 7 10 BUN 5 L 8 Creatinine 1.08 0.95 Est Cr Clr Drug Dosing 58.3 66.2 Est GFR ( Amer) 80.7 94.3 Est GFR (Non-Af Amer) 69.7 81.3 BUN/Creatinine Ratio 4.6 L 8.4 L Glucose 72 114 H Calcium 8.7 8.8 Phosphorus 3.5 4.1 Magnesium 1.9 1.9 Total Bilirubin 0.5 0.4 AST 18 12 L ALT 31 26 Alkaline Phosphatase 44 39 Total Protein 6.2 6.2 Albumin 3.4 3.4 Globulin 2.8 2.8 Albumin/Globulin Ratio 1.2 1.2 Lipase Urine Color Urine Appearance Urine pH Ur Specific [place] Urine Protein Urine Glucose (UA) Urine Ketones Urine Blood Urine Nitrite Urine Bilirubin Urine Urobilinogen Ur Leukocyte Esterase Urine WBC (Auto) Urine RBC (Auto) U Hyaline Cast (Auto) U Epithel Cells (Auto) Urine Bacteria (Auto) Stl C. cayetanensis PCR Stool Rotavirus A PCR Stl Adenov F PCR Stool Astrovirus (PCR) Stool Campylobacter PCR Stl C. diff Tox B Gene Negative Cdiff Gene Stool Cryptosporidium PCR Stl E.coli Shiga Tox PCR Stl Enterotoxigenic E PCR Stool EPEC (PCR) Stool EAEC (PCR) Stl E. histolytica PCR Stool Giardia Lamblia PCR Stool Salmonella PCR Stool Sapovirus (PCR) Stl P. shigelloides PCR Stl Shigella/EIEC PCR St Y.enterocolitica PCR Stool Vibrio (PCR) Stl Vibrio cholerae PCR Stl Norovirus GI/GII PCR 04/23/23 05:59 WBC 11.29 H RBC 3.37 L Hgb 10.9 L Hct 32.0 L MCV 95.0 MCH 32.3 MCHC 34.1 RDW Std Deviation 45.3 RDW Coeff of Ward 13.2 Plt Count 354 MPV 9.3 L Immature Gran % (Auto) Neut % (Auto) Lymph % (Auto) [place] % (Auto) Eos % (Auto) Baso % (Auto) Neut # (Auto) Lymph # (Auto) [place] # (Auto) Eos # (Auto) Baso # (Auto) Immature Gran # (Auto) RBC Morphology Sodium 139 Potassium 4.3 Chloride 108 H Carbon Dioxide 25 Anion Gap 6 BUN 13 Creatinine 1.01 Est Cr Clr Drug Dosing 62.3 Est GFR ( Amer) 87.6 Est GFR (Non-Af Amer) 75.5 BUN/Creatinine Ratio 12.9 Glucose 147 H Calcium 8.6 Phosphorus 3.9 Magnesium Total Bilirubin 0.5 AST 13 ALT 25 Alkaline Phosphatase 35 Total Protein 5.7 L Albumin 3.2 L Globulin 2.5 Albumin/Globulin Ratio 1.3 Lipase Urine Color Urine Appearance Urine pH Ur Specific Lawrence Urine Protein Urine Glucose (UA) Urine Ketones Urine Blood Urine Nitrite Urine Bilirubin Urine Urobilinogen Ur Leukocyte Esterase Urine WBC (Auto) Urine RBC (Auto) U Hyaline Cast (Auto) U Epithel Cells (Auto) Urine Bacteria (Auto) Stl C. cayetanensis PCR Stool Rotavirus A PCR Stl Adenov F PCR Stool Astrovirus (PCR) Stool Campylobacter PCR Stl C. diff Tox B Gene Stool Cryptosporidium PCR Stl E.coli Shiga Tox PCR Stl Enterotoxigenic E PCR Stool EPEC (PCR) Stool EAEC (PCR) Stl E. histolytica PCR Stool Giardia Lamblia PCR Stool Salmonella PCR Stool Sapovirus (PCR) Stl P. shigelloides PCR Stl Shigella/EIEC PCR St Y.enterocolitica PCR Stool Vibrio (PCR) Stl Vibrio cholerae PCR Stl Norovirus GI/GII PCR Abdomen/Pelvis CT 04/14/23 15:57 CT abd pelvis IV con only CLINICAL HISTORY: Abd pain, bleeding, diverticulitis TECHNIQUE: Helical axial images of the abdomen and pelvis were obtained and displayed. Automated dose lowering techniques and/or adjustment according to patient size were utilized for this exam. This exam was performed with intravenous contrast. CT DOSE: 859.96 mGy.cm COMPARISON: Comparison is made to CT abdomen pelvis 04/10/2023 FINDINGS: Lower chest: No acute abnormality. Liver: Focal fatty changes are noted about the falciform ligament. Gallbladder and biliary tree: No calcified gallstones. Normal caliber wall. No intra- or extrahepatic biliary ductal dilation. Pancreas: Unremarkable, no focal lesions. Spleen: Calcifications are noted in the spleen compatible with prior granulomatous disease. Adrenals: Unremarkable. Kidneys and ureters: Subcentimeter hypodensities are too small to characterize. Bladder: Unremarkable. Reproductive organs: Prostatomegaly is seen. Partial visualization of right mastectomy clip. Bowel: Compared to the prior exam, previously noted thickening of the transverse colon has resolved. There is stable to increased mild fat stranding about the distal descending colon. Thickening and vascular prominence about the sigmoid colon is unchanged, however there is some heterogeneity about the anterior rectal wall. Numerous diverticula are again seen. Lymph nodes Retroperitoneal: Unremarkable. Pelvic: Unremarkable. Mesenteric: Subcentimeter lymph nodes are noted. Peritoneum: Normal. Vessels: Atherosclerotic calcifications are seen. Abdominal wall: Bilateral fat-containing inguinal hernias are seen. The proximal sigmoid colon approaches but does not enter this hernia. Fat-containing umbilical hernia is seen. Bones: Degenerative changes in the visualized spine. IMPRESSION: Findings are compatible with ongoing sigmoid diverticulitis although the transverse colon inflammation appears to have improved. There may be a new focus of disease in the distal descending colon. There is irregularity about the anterior rectal wall which may represent adjacent free fluid versus developing phlegmon. ACT 112: Negative or not required by law. Electronically signed by: Kevin Ferrell M.D. 04/14/2023 6:03 PM Mesenteric US 04/14/23 19:48 Exam(s): US VASCULAR EXAM: US Duplex Arterial/Venous of the Abdomen, Complete CLINICAL HISTORY: Reason for exam: worsening colitis, potential ischemia. TECHNIQUE: Real-time duplex ultrasound scan of the abdomen integrating B-mode two- dimensional vascular structure, Doppler spectral analysis and color flow Doppler imaging. COMPARISON: No relevant prior studies available. FINDINGS: Aorta: The abdominal aorta is patent are nondilated. Peak systolic velocity 98 cm/s. Other vasculature: The celiac artery is patent. The peak systolic velocity is measured at 333 and 364 cm/s, however, the angle correction is questionable. The superior mesenteric artery is patent with peak systolic velocity 181 cm/s, 132 cm/s, and 89 cm/s. IMPRESSION: The celiac artery is patent. The peak systolic velocity is measured at 333 and 364 cm/s which is elevated, however, the angle correction is questionable. Elevated velocity consistent with greater than 70% stenosis may be artifact. Consider confirmation with cross-sectional imaging such as CT angiogram or MR angiogram. Electronically signed by: Markos Larkin MD 04/14/23 22:00 PM Abdomen/Pelvis CT 04/19/23 09:[address] WITH IV CONTRAST CT DOSE: 917.95 mGy.cm HISTORY: Patient presents with acute pain within the midline pelvis and rectum rectal pain TECHNIQUE: Multiaxial CT images of the abdomen and pelvis were performed following the IV administration of 91 cc of Optiray, A dose lowering technique was utilized adhering to the principles of ALARA. COMPARISON STUDY: 04/14/2023, 04/10/2023 FINDINGS: Coronary arterial calcifications. Trace pleural effusions. 3 mm solid nodule in the left lower lobe. Pulmonary emphysema with a few scattered calcified pulmonary granulomata. No free air. Calcified granulomata of the spleen. Unremarkable pancreas and adrenal glands. Contracted gallbladder. Calcified granulomata of the liver. No suspicious hepatic mass lesions. Patency of the portal vein. There are a few subcentimeter hypodensities of the kidneys which are technically too small to characterize however favor probable cysts. No hydronephrosis. Urinary bladder wall thickening with partial distention. Prostatomegaly. Small fat filled inguinal hernias. Atherosclerosis of the aorta without aneurysm. Lymph nodes measuring up to 8 mm are again noted adjacent to the inferior mesenteric vein. No bowel obstruction. There is again circumferential wall thickening noted within the colon, most pronounced in the rectosigmoid. Colonic diverticulosis. Fluid-filled appendix, likely secondary to the colonic process. Mild pericolonic and perirectal stranding with trace free pelvic fluid. Colorectal air fluid levels are again noted. No fluid collections. Unremarkable soft tissues. Surgical clips of the scrotum. No acute fracture. IMPRESSION: 1. Findings are again compatible compatible with a nonspecific proctocolitis. No pneumoperitoneum or abscess. 2. Trace pelvic ascites. 3. Subcentimeter lymph nodes are favored to be reactive. 4. Extensive sigmoid diverticulosis. 5. Trace pleural effusions. 6. Additional findings as above. ACT 112: Negative or not required by law. The above report was generated using voice recognition software. It may contain grammatical, syntax or spelling errors. Electronically signed by: Osvaldo Tavarez M.D. 04/19/2023 10:39 AM 04/14/23 15:57 CT Abd and Pelvis [CT abd pelvis IV con only] Stat 04/14/23 19:48 US duplex mesenteric Stat 04/19/23 09:02 CT abd pelvis IV con only Urgent Hospital Course (1) Sigmoid diverticulitis: (2) Hypertension: (3) Hyperlipidemia: Plan Pt is a 67 yo male with a past medical history of HTN, HLD, and nicotine dependence who presents to the hospital on 04/14/23 for diverticulitis. Sigmoid diverticulitis w microperforation Proctocolitis -Patient found to have Diverticulitis and proctocolitis as per last abdomen/ pelvis CT (04/19): Nonspecific proctocolitis, trace of pelvic ascites, extensive sigmoid diverticulosis, Subcentimeter lymph nodes are favored to be reactive. -Proctocolitis likely contribute symptoms -We treated him with Iv Zosyn, Iv hydration, Bowel rest, and Iv solumedrol -GI consulted recommendation -No colonoscopy at this moment, recommended colonoscopy in 8 weeks in outpatient setting -IV solumedrol 40mg bid during the admission upon discharge patient was sent with a prednisone 40mg daily with a 5mg a week taper -Leukocytosis resolved, no fever, C diff negative -After tolerating low fiber diet, patient was discharge home with Prednisone taper, Augmentin and probiotics. Hematochezia - At admission, bright red blood with BM -secondary to bleeding internal hemorrhoid, resolved after bowel rest BP: baseline Hypertension - Losartan restarted, hospital hypotension resolved Cigarette smoker - Tobacco cigarette smoker; 50-year history; currently 4 cigarettes/daily Total Time Total Time Spent Total Time Spent (In Minutes): see attending attestation Discharge Plan Discharge Items Patient Disposition: Home - Self-Care Reason For Visit: ABDOMINAL PAIN, DIARRHEA Discharge Diagnosis: Diverticulitis Proctocolitis Activity: Per Instructions section Non-emergency contact: Primary Care Provider and Community Health Advisor Call non-emergency contact if: you have any medication questions, your pain is unusual for you and your temperature is above 101 Follow-up/Referrals: Jermaine Stovall, [Primary Care Provider] - 05/03/23 3:00 pm Diet: Low Fiber Addtl Attending Provider Instructions: You were admitted to the hospital due to Diverticulitis and Proctocolitis. You were treated with IV antibiotics, IV fluids, IV solumedrol Gastroenterology was consulted during your admission they recommended: - Continue of steroids when discharged (instructions below) - given recent diverticulitis and colitis, it's important to do a colonoscopy in 8 weeks to further evaluate. A discharge summary will be sent to your primary care physician to ensure continuity of care. Please bring this discharge summary with you to your next office appointment so that your provider can review it at that time. Follow-up appointments: Make a follow-up appointment with your PCP within the next week. It is very important that you follow up with them shortly after discharge from the hospital. For Gastroenterology appointment you can contact [phone], for [facility] Gastroenterology group Medications: Your medication list has been reviewed and reconciled upon discharge to ensure accuracy and continuity of care. An updated list of all your medications is included with your hospital discharge paperwork. Please review this list closely, and make note of any changes. We sent a new medication called Prednisone 5 mg to your pharmacy: Take 40 mg (8 tabs) for 4 days (for a total of 7 days) Take 35 mg (7 tabs) for 7 days Take 30 mg ( 6 tabs) for 7 days Take 25 mg (5 tabs) for 7 days Take 20 mg (4 tabs) for 7 days Take 15 mg (3 tabs) for 7 days Take 10 mg ( 2 tabs) for 7 days Take 5 mg (1 tabs) for 7 days Augmentin: take 1 tab every 8 hours for 2 days Probiotics, take 2 cap daily Take your medications as instructed; do not skip a dose of your medicines. Make sure all of your doctors know every medicine you are taking (including [id number] medicines, vitamins, and supplements). Call your primary care provider before taking any new medicines (including over- the- counter medicines, vitamins, and supplements), because some of these may interact with your current medications, or may make your symptoms worse. Tell your primary care provider if you cannot afford your medications. CALL 911 OR GO TO THE EMERGENCY DEPARTMENT if you experience any of the following: Sudden, severe abdominal pain or nausea/vomiting Severe chest pain, or chest pain that radiates (moves) to your jaw or arm Sudden, severe shortness of breath or difficulty breathing Thank you for allowing us to participate in your care. Pending Studies at Discharge: No Stand-Alone Forms: My [facility] [employer], Smoking Cessation Medications and DC Order Prescriptions: New Advanced Probiotic 625 mg (10 billion cell) Capsule 2 cap PO DAILY 30 Days Qty: 60 0RF prednisone 5 mg tablet 5 mg PO DIRECTED Qty: 228 0RF Rx Instructions: see taper instructions Take 40 mg (8 tabs) for 4 days Take 35 mg (7 tabs) for 7 days Take 30 mg ( 6 tabs) for 7 days Take 25 mg (5 tabs) for 7 days Take 20 mg (4 tabs) for 7 days Take 15 mg (3 tabs) for 7 days Take 10 mg ( 2 tabs) for 7 days Take 5 mg (1 tabs) for 7 days amoxicillin-pot clavulanate [Augmentin] 500-125 mg tablet 1 tab PO Q8H 2 Days Qty: 6 0RF Continued fluticasone propionate [Flonase Allergy Relief] 50 mcg/actuation spray,suspension 2 spray intranasal QAM Rx Instructions: administer into each nostril Multivitamin 50 Plus Tablet 1 tab PO QAM atorvastatin 40 mg tablet 40 mg PO QAM Patient Comments: takes in pm losartan 25 mg tablet 25 mg PO QAM Patient Comments: takes in the am montelukast 10 mg tablet 10 mg PO QAM Patient Comments: pt states he takes in the am Discontinued ciprofloxacin HCl 500 mg tablet 500 mg PO BID Qty: 14 0RF metronidazole 500 mg tablet 500 mg PO Q8H 7 Days Qty: 21 0RF Discharge Orders: Discharge Order (Routine); Ordered 04/23/23 Ordered By: Tracy Bill/Other Patient Handouts: Diverticulosis and Diverticulitis, Diverticulitis Dc Admission Data Admit Date/Time: 04/14/23 19:44 Attending Provider: Kimmy Justin Admit Provider: Kaushik Oswald Primary Care Provider: Jermaine Stovall Other Providers: Toby Hunt; Kaushik Oswald; Ebenezer Briscoe; Corin Kan Jr Other Interventions: Discharge Summary Assessment (RN) Last Done: 04/23/23 13:38 Supervising Physician Co-Signing Physician Notes Resident Physician Supervision Note: I independently interviewed and examined the patient and verified the miranda history and physical, reviewed labs and image studies and agree with resident findings and care plan. Admitted for diverticulitis after failed outpatient treatment. Started on IV antibiotics. He later reported worsening pain with defecation. Repeat imaging showed nonspecific proctocolitis with trace ascites and subcentimeter lymph nodes. Rectal supporsitory steroid was tried but with no help, he was put on IV steroids with plan. Diet was advanced and he tolerated it well. D/jayden home with slow steroid taper and finish course of antibiotics for total 10 days. Will need outpatient colonoscopy in 8 week. Resident Activity Tracking Resident Involvement: Resident Care Provided Care Provided: Adult Hospital Medicine
== END 2023-04-23 14:00 | disposition home or self-care (01) | DRG 379 ==
LOC: ED 13:52 → EDINP 19:44 → SUATTDRO 19:44 → 2N 23:39

== ENCOUNTER 2023-04-29 04:26 | Inpatient (IN) ==
[2023-04-29] MEDS ORDERED: ACETAMINOPHEN 1,000 MG/100 ML VIAL IV STA (04:50)
[2023-04-29] MEDS: SODIUM CHLORIDE 0.9% 1,000 ML IV SCH ×2 (05:08→16:43)
--- NOTE | 2023-04-29 05:12 | Emergency Department Note ---
Impression & Plan Abdominal pain, Diarrhea ED Provider Note ED Provider Note NAME: REYES VERA AGE:67 SEX: Male : 1955 ARRIVES VIA: private vehicle INFORMANT: Patient ED PROVIDER(s): Genie Mejia DO CHIEF COMPLAINT: Abdominal pain, diarrhea HPI: This is a 67-year-old male presents emergency department due to concern for increased abdominal pain and increased diarrhea today. Patient with recent admission for complicated diverticulitis as microperforation was noted. Upon discharge home the end of last week he received several more days of oral antibiotics and is still completing a tapering dose of steroids. Patient states he has had discomfort mostly at the rectum, although he has a mild dull abdominal pain on the left side of his abdomen additionally. He states he has not had an appetite and has had minimal to eat or drink. He has not had any overt vomiting, fevers or chills. He states he has noticed some blood in the stool although was also recently diagnosed with hemorrhoids additionally. He states he has had prior colonoscopies which were reported to him as well appearing and only needing to be done every 10 years. No prior history of diverticulitis. PAST MEDICAL HISTORY:See Below PAST SURGICAL HISTORY:See Below FAMILY HISTORY:See Below SOCIAL HISTORY:See Below HOME MEDICATIONS:See Below ALLERGIES:See Below VITALS:See Below PHYSICAL EXAMINATION: GENERAL: alert, well appearing, well nourished, no distress, non-toxic EYE EXAM: normal conjunctiva, PERRL and EOM's grossly intact OROPHARYNX: no exudate, no erythema, lips, buccal mucosa, and tongue normal and mucous membranes are moist NECK: supple, no nuchal rigidity, no adenopathy, non-tender LUNGS: Clear to auscultation. Normal chest wall mechanics, no w/r/r HEART: no murmurs, S1 normal and S2 normal ABDOMEN: abdomen soft, mild discomfort with palpation along the left abdomen, normo-active bowel sounds, no masses, no rebound or guarding. Dull to percussion. BACK: Back is symmetrical on inspection and there is no deformity, no midline tenderness, no CVA tenderness. SKIN: no rashes, petechiae, orbruising UPPER EXTREMITIES: upper extremities are grossly normal. FROM, nml pulses b/l. LOWER EXTREMITIES: No pitting edema. FROM, nml pulses b/l. NEURO EXAM: Normal sensorium, cranial nerves II-XII grossly intact, normal speech, no facial droop,nogross weakness of arms, no gross weakness of legs. Gross sensation intact. No ataxia. Vital Signs: reviewed and remarkable Differential Diagnosis: Diverticulitis, abscess, perforation, GI bleed, C. difficile, colitis, bowel obstruction, mesenteric ischemia, medication ADR, dehydration, electrolyte abnormality, as well as others were considered MEDICAL DECISION MAKING: This is a 67-year-old male presents emergency department due to concern for persistent abdominal pain and diarrhea. Patient with recent inpatient hospitalization for complicated diverticulitis including microperforation. Patient did complete course of antibiotics, and GI also added IV steroids while inpatient. States he has continued having diarrhea and abdominal pain. He has now also been seeing blood and increased mucus in recent days additionally. Patient has had minimal oral intake and is also concern for dehydration. He felt very weak and lightheaded this evening but did not lose consciousness. Patient afebrile vital signs stable on arrival. Labs drawn and sent, IV established, EKG performed at bedside and interpreted by me and patient monitored on telemetry. He was given IV fluids, IV Tylenol, and oral Bentyl for his pain. He had multiple bowel movements while present in the ER. Stool cultures were obtained and sent. He was Hemoccult positive. C. difficile and stool culture otherwise negative. Extensive time spent discussing recent evaluation and current symptoms with patient and family at bedside. Patient had declined CT stating he was told during the last admission he should not have anymore as he has had 3 in 2 weeks. I did discuss case with Dr. Kan of GI who did recommend repeat CT imaging as well as admission. I did contact radiology to see if there is any utility for another imaging modality and they recommended CT as well. Ultimately patient was in agreement with CT imaging. Case discussed with [facility] team for additional evaluation and management. Consultation(s): 0650: Discussed with Dr. Kan. Recommends repeat CT and admission. Recommends gen surg eval additionally. 0729: Discussed with Dr. Webb via [place] [facility]. Recommends CT, not MRI for evaluation. 0740: [facility] and management. They will follow-up CT. ER Treatment Provided: See below Diagnostics Interpreted By Me: -ECG: Normal sinus at 82, normal axis, normal intervals, no acute ST/T wave changes -Cardiac Monitoring: An order was placed for continuous cardiac monitoring. The monitor shows a rate of 80 with normal sinus rhythm. -Laboratory studies: As stated above and show below. -Imaging studies: [] Triage Nursing Note Reviewed Prior/Outside Records Reviewed Critical care: Critical care of 48 min performed to assess and manage high likelihood of life- threatening abdominal pain and diarrhea, involving labs and imaging performed with assessment to evaluate abdominal pain and diarrhea diagnosis with frequent reassessment. This time includes bedside time, treatment discussions with patient/family/consultants, documentation time and excludes procedure time. 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 History of nasal polypectomy H/O lithotripsy Family History Mother Colorectal cancer Family history of reaction to anesthesia nausea Grandmother Diabetes Grandmother (Paternal) Family history of diabetes mellitus Son Hypereosinophilic syndrome Son Hypereosinophilic syndrome Denies family history of Ovarian cancer Prostate cancer Heart disease Myocardial infarction Breast cancer Lung cancer Stroke Social History Smoking Status: Current some day smoker Tobacco Type: Cigarettes Age Started Using Tobacco: 26; packs per day: 0.25; Cigarettes Per Day: 4; Second Hand Exposure: Yes; Do You Dip or Chew Tobacco: No; Tobacco Cessation Education Requested by Patient: No Hx Alcohol Use: Yes Alcohol type: beer and wine Alcohol Intake Frequency Comment: drinks 2 beer every day Hx Substance Use: No Preferred Language: Malaysian Communication Ability: Effective Visual Impairment: No Limitations Hearing Ability: Normal Aircraft Time Clerk Required: No Beliefs That Will Affect Care: None marital status: Current Living Situation: Spouse current occupational status: retired current occupation: used to work in sales with [employer] Feels Safe at Home: Yes Safety Concerns: Feels Safe At This Time Childhood Exposure to Second-Hand Smoke: Yes Diet: regular caffeine: Yes Dental Care, Regularly: Yes Physical Activity Frequency: Does not Exercise Seatbelt Use: always Sunscreen Use: Yes Assistive Devices: Glasses Allergies Allergies Allergy/AdvReac Type Severity Reaction Status Date / Time erythromycin base Allergy Mild RASH Verified 04/10/23 10:24 tetracycline Allergy Mild RASH Verified 04/10/23 10:24 Home Meds Home Medications Medication Instructions Recorded Confirmed fluticasone propionate 50 2 spray intranasal QAM 06/22/22 04/29/23 mcg/actuation nasal spray,suspension (Flonase Allergy Relief) atorvastatin 40 mg tablet 40 mg PO QAM 04/10/23 04/29/23 losartan 25 mg tablet 25 mg PO QAM 04/10/23 04/29/23 montelukast 10 mg tablet 10 mg PO QAM 04/10/23 04/29/23 Previous Rx's Medication Instructions Recorded L.acidop,casei,lactis,rham-B.lact,magaly 2 cap PO DAILY 30 days #60 caps 04/23/23 625 mg (10 billion cell) capsule (Advanced Probiotic) prednisone 5 mg tablet 5 mg PO DIRECTED #228 tabs 04/23/23 Results & Data (ED) Vital Signs Vital Signs - 24 hr 04/29/23 04:35 04/29/23 05:47 04/29/23 06:57 Temperature 36.5 C Temperature Source Axillary Pulse Rate 79 Pulse Rate [Finger] 86 63 Respiratory Rate 18 18 18 Blood Pressure 114/70 Blood Pressure [Right Arm] 131/82 105/60 Blood Pressure Mean 84 Blood Pressure Mean [Right Arm] 98 75 Blood Pressure Position [Right Arm] Pulse Oximetry 100 97 96 Oxygen Delivery Method Room Air Room Air Sepsis Recent Fever Within 48 Hours No Sepsis New/Unexplained Change in Mental Status No Sepsis Action Taken by Nursing No Action Required 04/29/23 11:00 04/29/23 11:22 Temperature Temperature Source Pulse Rate Pulse Rate [Finger] 85 86 Respiratory Rate 16 Blood Pressure Blood Pressure [Right Arm] 103/65 105/60 Blood Pressure Mean Blood Pressure Mean [Right Arm] 77 75 Blood Pressure Position [Right Arm] Lying Pulse Oximetry 96 96 Oxygen Delivery Method Room Air Sepsis Recent Fever Within 48 Hours Sepsis New/Unexplained Change in Mental Status Sepsis Action Taken by Nursing Laboratory Data 04/29/23 22:42 04/29/23 05:16 Lab Results 04/29/23 04/29/23 Range/Units 05:04 05:16 WBC 18.27 H (4.8-10.8) K/ul RBC 4.39 L (4.70-6.10) M/uL Hgb 14.3 (14.0-18.0) g/dl Hct 42.3 (42.0-52.0) % MCV 96.4 (80.0-100.0) fL MCH 32.6 (25.0-34.0) pg MCHC 33.8 (32.0-36.0) g/dL RDW Std Deviation 49.4 H (36.4-46.3) fL RDW Coeff of Ward 13.9 (11.5-14.5) % Plt Count 377 (130-400) K/uL MPV 9.7 (9.4-12.4) fL Immature Gran % (Auto) 0.7 % Neut % (Auto) 76.8 % Lymph % (Auto) 8.0 % [place] % (Auto) 13.5 % Eos % (Auto) 0.6 % Baso % (Auto) 0.4 % Neut # (Auto) 14.02 H (1.40-6.50) K/uL Lymph # (Auto) 1.47 (1.20-3.40) K/uL [place] # (Auto) 2.47 H (0.11-0.59) K/uL Eos # (Auto) 0.11 (0.00-0.50) K/uL Baso # (Auto) 0.08 (0.00-0.20) K/uL Immature Gran # (Auto) 0.12 (0.01-0.20) K/uL RBC Morphology Unremarkable PT 11.9 (9.0-12.0) Seconds INR 1.1 (0.9-1.1) Sodium 137 (136-145) mmol/L Potassium 3.8 (3.5-5.1) mmol/L Chloride 104 (98-107) mmol/L Carbon Dioxide 22 (21-32) mmol/L Anion Gap 11 (3-11) BUN 14 (6-23) mg/dl Creatinine 1.15 (0.6-1.4) mg/dl Est Cr Clr Drug Dosing 53.7 ml/min Est GFR ( Amer) 74.8 ml/min Est GFR (Non-Af Amer) 64.6 ml/min BUN/Creatinine Ratio 12.2 (10-20) Glucose 126 H (70-99(Fasting)) mg/dl Calcium 9.3 (8.6-10.3) mg/dl Magnesium 1.8 (1.7-2.4) mg/dl Total Bilirubin 1.2 H (0.2-1.0) mg/dl AST 16 (13-39) U/L ALT 66 H (7-52) U/L Alkaline Phosphatase 49 (34-104) U/L Total Protein 6.8 (6.0-8.3) gm/dl Albumin 3.9 (3.4-5.0) gm/dl Globulin 2.9 (2.5-4.0) gm/dl Albumin/Globulin Ratio 1.3 (0.9-2) Lipase 22 (11-82) U/L Stl C. cayetanensis PCR Not Detected (NotDetected) Stool Rotavirus A PCR Not Detected (NotDetected) Stl Adenov F 40/41 PCR Not Detected (NotDetected) Stool Astrovirus (PCR) Not Detected (NotDetected) Stool Campylobacter PCR Not Detected (NotDetected) Stl C. diff Tox B Gene Negative Cdiff Gene (Neg) Stool Cryptosporidium PCR Not Detected (NotDetected) Stl E.coli Shiga Tox PCR Not Detected (NotDetected) Stl Enterotoxigenic E PCR Not Detected (NotDetected) Stool EPEC (PCR) Not Detected (NotDetected) Stool EAEC (PCR) Not Detected (NotDetected) Stl E. histolytica PCR Not Detected (NotDetected) Stool Giardia Lamblia PCR Not Detected (NotDetected) Stool Salmonella PCR Not Detected (NotDetected) Stool Sapovirus (PCR) Not Detected (NotDetected) Stl P. shigelloides PCR Not Detected (NotDetected) Stl Shigella/EIEC PCR Not Detected (NotDetected) St Y.enterocolitica PCR Not Detected (NotDetected) Stool Vibrio (PCR) Not Detected (NotDetected) Stl Vibrio cholerae PCR Not Detected (NotDetected) Stl Norovirus GI/GII PCR Not Detected (NotDetected) Administered Medications Cholestyramine Resin (Cholestyramine Light 4 Gm Pkt) 4 gm PO BID@1000,2200 ARLEEN Stop: 05/29/23 21:59 Last Admin: 04/29/23 22:15 Dose: 4 gm Documented By: SCOTT Hydromorphone HCl (Hydromorphone Inj 0.5 Mg/0.5 Ml Syr) 0.5 mg IV Q4H PRN PRN Reason: Pain Scale 4,5,6 Stop: 05/13/23 09:42 Last Admin: 04/29/23 09:54 Dose: 0.5 mg Documented By: PATRICA Hydromorphone HCl (Hydromorphone Inj 1 Mg/Ml Syringe) 1 mg IV Q4H PRN PRN Reason: Pain Scale 6,7,8,9,10 Stop: 05/13/23 09:42 Last Admin: 04/29/23 18:39 Dose: 1 mg Documented By: JAXON Parenteral Electrolytes (Plasma-Lyte A Ph 7.4) 1,000 mls @ 125 mls/hr IV .Q8H ARLEEN Stop: 05/29/23 11:44 Last Admin: 04/29/23 22:10 Dose: 125 mls/hr Documented By: Infusion: 04/29/23 19:52 Dose: Infused Documented By: Admin: 04/29/23 11:52 Dose: 125 mls/hr Documented By: HAYDEE Piperacillin Sod/Tazobactam (Sod 4.5 gm/ Dextrose) 100 mls @ 25 mls/hr IV Q8H ARLEEN; Protocol Stop: 05/01/23 17:59 Last Infusion: 04/29/23 21:54 Dose: Infused Documented By: Admin: 04/29/23 18:17 Dose: 25 mls/hr Documented By: JAXON Acetaminophen (Ofirmev) 1,000 mg in 100 mls @ 400 mls/hr IV Q8H PRN PRN Reason: pain/fever Stop: 05/02/23 13:10 Last Infusion: 04/29/23 14:25 Dose: Infused Documented By: Admin: 04/29/23 13:49 Dose: 400 mls/hr Documented By: PATRICA Ondansetron HCl (Ondansetron Inj 2 Mg/Ml 2 Ml Vial) 4 mg IV Q6H PRN PRN Reason: Nausea Stop: 05/29/23 09:42 Last Admin: 04/29/23 18:53 Dose: 4 mg Documented By: Admin: 04/29/23 10:10 Dose: 4 mg Documented By: PATRICA Discontinued Medications Dicyclomine HCl (Dicyclomine Hcl 20 Mg Tab) 20 mg PO NOW STA Stop: 04/29/23 05:21 Last Admin: 04/29/23 05:45 Dose: 20 mg Documented By: ANASTACIO Sodium Chloride (Nss) 1,000 mls @ 200 mls/hr IV .Q5H ARLEEN Stop: 05/29/23 04:59 Last Admin: 04/29/23 16:43 Dose: Not Given Documented By: Infusion: 04/29/23 11:56 Dose: Infused Documented By: Admin: 04/29/23 05:08 Dose: 200 mls/hr Documented By: ANASTACIO Acetaminophen (Ofirmev) 1,000 mg in 100 mls @ 400 mls/hr IV NOW STA Stop: 04/29/23 05:04 Last Infusion: 04/29/23 05:34 Dose: Infused Documented By: Admin: 04/29/23 05:08 Dose: 400 mls/hr Documented By: ANASTACIO Parenteral Electrolytes (Plasma-Lyte A Ph 7.4) 1,000 mls @ 999 mls/hr IV .Q1H1M ONE Stop: 04/29/23 12:31 Last Infusion: 04/29/23 13:20 Dose: Infused Documented By: Admin: 04/29/23 11:52 Dose: 999 mls/hr Documented By: HAYDEE Piperacillin Sod/Tazobactam (Sod 4.5 gm/ Dextrose) 100 mls @ 200 mls/hr IV ONE ONE; Protocol Stop: 04/29/23 14:29 Last Infusion: 04/29/23 14:25 Dose: Infused Documented By: Admin: 04/29/23 13:40 Dose: 200 mls/hr Documented By: PATRICA Ioversol (Optiray 320 500ml) 90 ml IV ONCE ONE Stop: 04/29/23 10:07 Last Admin: 04/29/23 10:06 Dose: 90 ml Documented By: NICKY Ondansetron HCl (Ondansetron Inj 2 Mg/Ml 2 Ml Vial) 4 mg IV NOW STA Stop: 04/29/23 07:41 Last Admin: 04/29/23 07:44 Dose: 4 mg Documented By: PATRICA Piperacillin Sod/Tazobactam Sod (Piperacillin/Tazobactam 4.5 Gm/100ml D5w) Confirm Administered Dose 4.5 gm IV .STK-MED ONE Stop: 04/29/23 12:53 Last Admin: 04/29/23 13:41 Dose: Not Given Documented By: PATRICA Discharge Plan Visit Data Chief Complaint: Abdominal Pain ED Provider: Genie Mejia Discharge Problem: Abdominal pain, Diarrhea Patient Disposition: Admitted As Inpatient Discharge Instructions Interventions: ED Discharge Assessment Last Done: 04/29/23 17:20
[2023-04-29] MEDS ORDERED: DICYCLOMINE HCL 20 MG TAB PO STA (05:20)
[2023-04-29 05:51] LABS: Hematocrit (blood only) 42.3 % (42.0-52.0); Hemoglobin 14.3 g/dl (14.0-18.0); Mean Corpuscular Hemoglobin 32.6 pg (25.0-34.0); Mean Corpuscular Hgb Conc 33.8 g/dL (32.0-36.0); Mean Corpuscular Volume 96.4 fL (80.0-100.0); Mean Platelet Volume 9.7 fL (9.4-12.4); Platelet Count 377 K/uL (130-400); RDW Coefficient of Variation 13.9 % (11.5-14.5); RDW Standard Deviation 49.4 fL (36.4-46.3); Red Blood Count 4.39 M/uL (4.70-6.10); White Blood Count 18.27 K/ul (4.8-10.8)
[2023-04-29 06:08] LABS: Albumin Globulin Ratio 1.3 (0.9-2); Albumin Level 3.9 gm/dl (3.4-5.0); BUN Creatinine Ratio 12.2 (10-20); Bilirubin,Total 1.2 mg/dl (0.2-1.0); Calcium 9.3 mg/dl (8.6-10.3); Creatinine Clr Calc Pharmacy 53.7 ml/min; Est GFR (African American) 74.8 ml/min; Est GFR (Non-African American) 64.6 ml/min; Globulin 2.9 gm/dl (2.5-4.0); Magnesium 1.8 mg/dl (1.7-2.4); Potassium 3.8 mmol/L (3.5-5.1); Total Protein 6.8 gm/dl (6.0-8.3)
[2023-04-29 06:14] LABS: INR 1.1 (0.9-1.1); Prothrombin Time 11.9 Seconds (9.0-12.0)
[2023-04-29 06:27] LABS: Basophils # (auto) 0.08 K/uL (0.00-0.20); Basophils % (auto) 0.4 %; Eosinophils # (auto) 0.11 K/uL (0.00-0.50); Eosinophils % (auto) 0.6 %; Immature Granulocytes # (auto) 0.12 K/uL (0.01-0.20); Immature Granulocytes % (auto) 0.7 %; Lymphocytes # (auto) 1.47 K/uL (1.20-3.40); Monocytes # (auto) 2.47 K/uL (0.11-0.59); Monocytes % (auto) 13.5 %; Neutrophils # (auto) 14.02 K/uL (1.40-6.50); Neutrophils % (auto) 76.8 %; RBC Morphology Unremarkable
[2023-04-29 06:39] LABS: Adenovirus F 40/41 PCR Not Detected (NotDetected); Astrovirus PCR Not Detected (NotDetected); Campylobacter PCR Not Detected (NotDetected); Cryptosporidium PCR Not Detected (NotDetected); Cyclospora cayetanensis PCR Not Detected (NotDetected); Entamoeba histolytica PCR Not Detected (NotDetected); Enteroaggregative E.coli(EAEC) Not Detected (NotDetected); Enteropathogenic E.coli (EPEC) Not Detected (NotDetected); Enterotoxigenic E.coli (ETEC) Not Detected (NotDetected); Giardia lamblia PCR Not Detected (NotDetected); Norovirus GI/GII PCR Not Detected (NotDetected); Plesiomonas shigelloides PCR Not Detected (NotDetected); Rotavirus A PCR Not Detected (NotDetected); Salmonella PCR Not Detected (NotDetected); Sapovirus PCR Not Detected (NotDetected); Shiga-like Toxin E.coli (STEC) Not Detected (NotDetected); Shigella/Enteroinvasive E.coli Not Detected (NotDetected); Vibrio cholerae PCR Not Detected (NotDetected); Vibrio species PCR Not Detected (NotDetected); Yersinia enterocolitica PCR Not Detected (NotDetected)
[2023-04-29] MEDS ORDERED: ONDANSETRON INJ 2 MG/ML 2 ML VIAL IV STA (07:40)
[2023-04-29] MEDS: HYDROmorphone INJ 0.5 MG/0.5 ML SYR IV PRN (09:54)
[2023-04-29] MEDS ORDERED: OPTIRAY 320 500ml IV ONE (10:06)
[2023-04-29] MEDS: ONDANSETRON INJ 2 MG/ML 2 ML VIAL IV PRN ×2 (10:10→18:53)
--- NOTE | 2023-04-29 10:21 | CT Scan Report ---
CT SCAN OF THE ABDOMEN AND PELVIS WITH IV CONTRAST CLINICAL HISTORY: Generalized abdominal pain. Diarrhea. COMPARISON STUDY: Reason prior abdominal CT scans, most recently dated 04/19/2023. TECHNIQUE: Following the IV administration of 90 cc of Optiray 320, CT scan of the abdomen and pelvi s is performed from the lung bases to the proximal femora. Images are reviewed in the axial, sagittal , and coronal planes. IV contrast was administered without complication. Oral contrast was utilized. A dose lowering technique was utilized adhering to the principles of ALARA. CT DOSE: 734.3 mGy.cm FINDINGS: Lung bases: The heart is normal in size and without pericardial effusion. The coronary arteries are d ensely calcified. A small hiatal hernia is noted. Emphysematous change is noted. A 3 mm left lower lo be pulmonary nodule on image #9 is unchanged. There are scattered calcified granulomas. No airspace c onsolidation or pleural effusion is identified. Liver: The contrast-enhanced liver is normal in size, contour, and attenuation. There is no intrahepa tic biliary ductal dilatation. Fatty infiltration is seen adjacent to the falciform ligament. The hep atic veins and portal veins are patent. There are small calcified hepatic granulomas. Gallbladder: Unremarkable. Spleen: Normal in size and attenuation. There are calcified splenic granulomas. Pancreas: Unremarkable. Adrenal glands: Unremarkable. Kidneys: The contrast enhanced kidneys are normal in size and without hydronephrosis. The kidneys enh ance symmetrically. Scattered subcentimeter cortical hypodensities likely represent cysts but are too small for definitive characterization. There is a punctate nonobstructing right renal calculus. Abdominal vasculature: The abdominal aorta is normal in course and caliber noting moderate atheroscle rotic calcification. Bowel: There is wall thickening and edema of the colon, greatest from the mid descending colon to the rectum. This is consistent with a nonspecific proctocolitis. Surrounding inflammation has improved a s compared to the 04/19/2023 examination. There is no bowel obstruction. Enteric contrast reaches the left colon. There is mild colonic diverticulosis without CT evidence of acute diverticulitis.. There is a tiny duodenal diverticulum. The appendix is well-visualized and normal. Peritoneum: There is no intraperitoneal free air or abdominal ascites. Lymphadenopathy: There are prominent pericolonic lymph nodes in the left lower quadrant. A 1.3 x 0.8 cm ovoid density in the left lower quadrant image #208 likely represents a venous varix. This was que stion is a lymph node on the prior examination. No pathologically enlarged nodes are seen in the abdo men or pelvis. Pelvic viscera: The prostate gland is enlarged and heterogeneous. The bladder wall is thickened/trabe culated indicating chronic outlet obstruction. There are bilateral fat-containing groin hernias. Surg ical clips are noted along the spermatic cord. Skeletal structures: No lytic or blastic lesions are seen. IMPRESSION: 1. Again seen is a nonspecific proctocolitis, greatest involving the left colon. The degree of surrou nding inflammation has modestly improved from 04/19/2023. Consider follow-up colonoscopy to further e valuate the underlying colonic mucosa. 2. Prominent pericolonic lymph nodes are nonspecific and likely reactive. 3. Mild colonic diverticulosis without CT evidence of acute diverticulitis. 4. Emphysema. 5. Additional findings as above. ACT 112: Negative or not required by law. Electronically signed by: Cuate Webb M.D. 04/29/2023 10:18 AM
--- NOTE | 2023-04-29 10:52 | History & Physical Report ---
Date of Service April 29, 2023 Assessment & Plan (1) Diarrhea: Plan: History of sigmoid diverticulitis with microperforation, colitis Repeat CT without evidence of ongoing diverticulitis. Diverticulosis is noted. Colonic inflammation is improving. No abscess/free air - Continued and worsening diarrhea, 12+ BMs daily and 1x episode of melena w/ No epigastric pain, BUN is not elevated. Do Not suspect upper GI bleed at this time C. difficile/bio fire negative. Questran ordered. N.p.o. on admission, if no recurrent melena or evidence of upper GI bleed may advance diet as clinic tolerated. Supplemental fluids ordered, clinically volume contracted and add ition 1 L Plasma-Lyte bolus ordered on admission. Currently taking prednisone 35mg, tapering by 5mg Q7D, converted to methylpred while inpatient until PO improves Completed 7 days of Zosyn and 3 days of Augmentin for total 10 day course after hospitalization (completed 04/26) Zofran as needed, Pepcid as needed, supplemental IVF M pending improvement in diet Prior colonoscopy 12/2019 was with small mouth diverticula of the sigmoid colon, no acute abnormalities were noted. Repeat colo in 6 weeks as outpt. (2) Colitis: Plan: - As noted (3) Hypertension: Plan: Hypertension Patient is borderline hypotensive, losartan temporarily held Plan Chronic Stable Issues: - Tobacco abuse. [id number] history, 4 cigarettes/day Nicotine patch 14 mg as needed, declines patch on admit. Cessation recommended CODE STATUS: Full code DVT prophylaxis SCDs, pharmacal prophylaxis deferred in the setting of hematochezia GI: NPO +sips. If no further melena and no suspicion for upper GI bleed may advance diet as tolerated. IVF M continued Dispo: Med/TEle for suspected LGIB and hypotension, downgrade if hemodynamically stable History of Present Illness Primary Care Provider: Jermaine Stovall DO Per ER Review: Previously seen by Dr. Ndiaye 04/20/23. Intubated to have colonoscopy in 8 weeks, colonoscopy prior not recommended due to recent diverticulitis. Patient was started on hydrocortisone suppository at that time but did not improve and was switched to Solu-Medrol for proctocolitis. He did begin to improve around 04/22 with an improvement in his appetite, advance diet, and decreased frequency of bowel movements. He was discharged on prednisone 40 mg with 5-week taper and with plans for follow-up colonoscopy 8 weeks from his diverticulitis. Following discharge patient did not improve despite antibiotic therapy, and has had worsening bleeding and diarrhea since discharge. Patient at his transitional care visit 04/25 and was continued to be symptomatic, he was switched from Cipro/Flagyl to Augmentin due to worsening symptoms. Prednisone taper was continued. He was continued on a probiotic. On ER evaluation he continues to have rectal discomfort, mild dull abdominal pain in the left lower quadrant, poor appetite, and endorses bright red blood in stool. He is borderline hyp otensive in the ER. He does have a leukocytosis in the setting of steroid use without left shift. Hemoglobin is 14.3 from last 10.9, clinically is volume contracted. Creatinine 1.15 with baseline of approximately 1.1. Stool bio fire and C. difficile are negative on 04/29. Repeat CTA/P with both oral and IV contrast shows a nonspecific proctocolitis greatest involving the left colon, inflammation is improving compared to 04/19/2023. Nonspecific pericolonic lymph node prominence suspected reactive; mild diverticulosis without evidence of ongoing diverticulitis. No bowel obstruction is seen. No free air or abdominal ascites is noted. No abscess is seen. Per Pt: After being discharged after his prior admit did 'ok' for about 2 days. Small meals Tuesday and Tuesday and did 'OK" and diarrhea was improving but then felt poorly Tuesday, and then Tuesday had much more discomfort with attempted meals and diarrhea increased. Called outpatient GI, had some water and tea but otherwise didn't keep much of anything down. BMs had improved a little and was liquidy brown, but had a feeling of need to have a BM in the last few times. Last 2 days has had 10x more BMs than usual. had a thicker texture and muddy brown, a little firmer than earlie rin the week. After a while he had more cramping and pain. Had continued to have BMs through the evening and yesterday and today had sweats, shakes, and 'just didn't feel right.' so came back it. He reports he has had bright red blood, sometimes pink blood for the last 25 days. In elast 3 days has had 'interspeckled blood and clots' and some pink blood in the toilet as well. No maroon blood last 3 days, yesterday for the first time had 'bowel movement which was black as coal and sticky, jet black.' This was at 3:30am. BMs since that time has returend to brown. This morning has gone at least a dozen times. Did keep ocntrast down, but has upset his stomach 'and has had a little bi tof an impract.' ER visit 04/10: Discharged on Cipro/Flagyl 7-day course for sigmoid/transverse diverticulitis Return and Admitted 04/14/2023 for diverticulitis with worsening hematochezia. - Treated with Zosyn 04/15/2023 - 04/23/2023. Was discharged to complete 3 additional days of Augmentin twice daily for total course of 10-day antibiotic. (completed 04/26/23) -[facility] [place] [facility] [place] on 04/20/2023 and was started on a hydrocortisone rectal suppository to help with inflammation, did not improve and was switched to IV Solu-Medrol 40 mg twice daily for proctocolitis on 04/21/2023. - On discharge 04/23 in addition to augmentin as noted was to complete 4 more days of prednisone 40 mg daily, then take 35 mg for 1 week and taper by 5 mg every 7 day. Patient has been taking this as directed, and has been on prednisone for 35mg x3 days Medical History: Reviewed Medications: Reviewed Surgical History: Reviewed Family history: Reviewed Allergies: Reviewed Social History: Ongoing tobacco abuse 4 cigarettes/day, social alcohol use without history of withdrawal, no recreational drug use Code Status: Full code Allergies Allergy/AdvReac Type Severity Reaction Status Date / Time erythromycin base Allergy Mild RASH Verified 04/10/23 10:24 tetracycline Allergy Mild RASH Verified 04/10/23 10:24 Home Medications Medication Instructions Recorded Confirmed Type fluticasone propionate 50 2 spray intranasal QAM 06/22/22 04/29/23 History mcg/actuation nasal spray,suspension (Flonase Allergy Relief) atorvastatin 40 mg tablet 40 mg PO QAM 04/10/23 04/29/23 History losartan 25 mg tablet 25 mg PO QAM 04/10/23 04/29/23 History montelukast 10 mg tablet 10 mg PO QAM 04/10/23 04/29/23 History L.acidop,casei,lactis,rham-B.lact,magaly 2 cap PO DAILY 30 days #60 caps 04/23/23 04/29/23 Rx 625 mg (10 billion cell) capsule (Advanced Probiotic) prednisone 5 mg tablet 5 mg PO DIRECTED #228 tabs 04/23/23 04/29/23 Rx Past Med/Surg History Medical History Toxic effect of other tobacco and nicotine, undetermined, sequela History of kidney stones History of nasal polyp Hypertension Surgical History Hx of vasectomy History of colonoscopy with polypectomy (08/2016) tubular adenoma and hyperplastic polyp removed, repeat recommended in 5 years. History of nasal polypectomy H/O lithotripsy Family History Mother Colorectal cancer Family history of reaction to anesthesia nausea Grandmother Diabetes Grandmother (Paternal) Family history of diabetes mellitus Son Hypereosinophilic syndrome Son Hypereosinophilic syndrome Denies family history of Ovarian cancer Prostate cancer Heart disease Myocardial infarction Breast cancer Lung cancer Stroke Social History Smoking Status: Current every day smoker Tobacco Type: Cigarettes Age Started Using Tobacco: 26; packs per day: 0.25; Cigarettes Per Day: 4; Second Hand Exposure: Yes; Do You Dip or Chew Tobacco: No; Hx Alcohol Use: No Hx Substance Use: No Preferred Language: Polish Communication Ability: Effective Visual Impairment: No Limitations Hearing Ability: Normal Technical Support Intern Required: No Beliefs That Will Affect Care: None marital status: Current Living Situation: Family current occupational status: retired current occupation: used to work in sales with [employer] Feels Safe at Home: Yes Childhood Exposure to Second-Hand Smoke: Yes Diet: regular caffeine: Yes Dental Care, Regularly: Yes Physical Activity Frequency: Does not Exercise Seatbelt Use: always Sunscreen Use: Yes Assistive Devices: None Physical Exam Physical Exam: General: A&Ox3. NAD. Cooperative. HEENT: Atraumatic, normocephalic. Mucous membranes dry Pulm: CTAB A&P. -wheezes, -rales, -rhonchi. Symmetrical chest rise. No increased work of breathing. No respiratory distress. Cardiac: RRR, -mrg. Radial pulses intact and symmetrical. Abdominal: Nontender, nondistended, soft. Specifically he has no left lower quadrant tenderness and no rebound BS present. Extremities: Warm, Results & Data Results & Data Vital Signs (Past 12 Hours) Vital Signs Temp Pulse Pulse Resp BP BP Pulse Ox 04/29/23 06:57 63 18 105/60 96 04/29/23 05:47 86 18 131/82 97 04/29/23 04:35 36.5 C 79 18 114/70 100 O2 Del Method 04/29/23 06:57 04/29/23 05:47 Room Air 04/29/23 04:35 Room Air PG Care Time/CCT Total # of Minutes Spent Total Time Spent with Patient: Total time spent is greater than 50% in coordination of care (as documented) at patient's floor/unit and/or counseling patient: Coding Level of Care Code 52853 INT INP/OBS CARE 2/55MIN Diagnoses Diarrhea R19.7 Colitis K52.9 Hypertension I10
[2023-04-29] MEDS ORDERED: PLASMA-LYTE A 1,000 ML IV ONE (11:31)
[2023-04-29] MEDS: PLASMA-LYTE A 1,000 ML IV SCH ×2 (11:52→22:10)
[2023-04-29] MEDS ORDERED: PIPERACILLIN/TAZOBACTAM 4.5 GM/100ML D5W IV ONE (12:52)
[2023-04-29] MEDS ORDERED: ACETAMINOPHEN 1,000 MG/100 ML VIAL IV PRN (13:11)
[2023-04-29] MEDS ORDERED: PIPERACILLIN/TAZOBACTAM 4.5 GM in DEXTROSE 5% MINI-B 100 ML IV ONE (14:00)
[2023-04-29 14:54] LABS: Hematocrit (blood only) 36.3 % (42.0-52.0); Hemoglobin 12.4 g/dl (14.0-18.0)
[2023-04-29 17:59] LABS: Appearance Urine Clear (Clear); Bilirubin Urine Negative (Negative); Blood Urine Negative (Negative); Color Urine Yellow; Glucose Urine UA Negative (Negative); Ketones Urine Negative (Negative); Leukocyte Esterase Urine Negative (Negative); Nitrite Urine Negative (Negative); Protein Urine Negative (Negative); Specific Gravity Urine 1.044 (1.000-1.030); Urobilinogen Urine Negative (Negative); pH Urine 5.5 (4.5-7.5)
[2023-04-29] MEDS: PIPERACILLIN/TAZOBACTAM 4.5 GM in DEXTROSE 5% MINI-B 100 ML IV SCH (18:17)
[2023-04-29] MEDS: HYDROmorphone INJ 1 MG/ML SYRINGE IV PRN (18:39)
[2023-04-29] MEDS: CHOLESTYRAMINE LIGHT 4 GM PKT PO SCH (22:15)
[2023-04-29 22:58] LABS: Hematocrit (blood only) 41.2 % (42.0-52.0); Hemoglobin 13.9 g/dl (14.0-18.0)
[2023-04-30] MEDS: PIPERACILLIN/TAZOBACTAM 4.5 GM in DEXTROSE 5% MINI-B 100 ML IV SCH ×3 (01:27→17:37)
[2023-04-30] MEDS: HYDROmorphone INJ 0.5 MG/0.5 ML SYR IV PRN (05:13)
[2023-04-30] MEDS: PLASMA-LYTE A 1,000 ML IV SCH ×3 (06:18→21:17)
--- NOTE | 2023-04-30 06:55 | Hospitalist Progress Note ---
Date of Service April 30, 2023 Assessment & Plan (1) Diarrhea: (2) Hypertension: (3) Hyperlipidemia: (4) Proctocolitis with rectal bleeding: (5) Cigarette smoker: Plan Pt is a 67 yo male with a past medical history of recent diverticulitis 04/10, HTN, HLD, and nicotine dependence who presents to the hospital on 04/29 for diarrhea with lower GI bleeding. Diarrhea - recent hx of sigmoid diverticulitis via CT on 04/10, s/p 7 days cipro/flagyl,, D/C'ed on prednisone and augmentin - CT 04/29 shows proctocolitis with modest improvement, no diverticulitis Prior colonoscopy 12/2019 was with small mouth diverticula of the sigmoid col on, no acute abnormalities were noted. Repeat colo in 6 weeks as outpt. - c diff/biofire negative - Zofran as needed, Pepcid as needed, supplemental IVF pending improvement in diet - continue zosyn and steroids - GI consulted, awaiting recommendations - diet: NPO awaiting GI recommendations Proctocolitis with rectal bleeding - continue to monitor daily CBC - continue regime as noted above Hypertension - BPs have been largely 100-110s systolic - losartan temporarily held Hyperlipidemia - home atorvastatin held Nicotine dependence - 50 pack year, 4 cigs/day - nicotine 14 mg patch in CODE STATUS: Full code DVT prophylaxis SCDs, pharmacal prophylaxis deferred in the setting of hematochezia Admission and Anticipated Discharge Date Admission Date: April 29, 2023 Supervising Physician Co-Signing Physician Notes I personally examined the patient and verified all miranda points of history and exam, discussed case, and agree with decision making with Dr Wilkerson Feels there is a roleback to many, many bowel movements a day small mucousy bloody and constant abdominal discomfort. Notes that prior to admission he probably had 30 bowel movements the day before. Vitals noted, in general he appears fatigued and somewhat uncomfortable. Breathing unlabored no accessory muscle use good effort. Skin shows no rashes no pallor or icterus. Labs and diagnostics noted. Persistent proctocolitisinitially managed as diverticulitis, but clearly he has not improved with this line of management. I am more suspicious that he may be in the unlucky minority of people who develop inflammatory bowel disease later in life, and that his prior admission could have possibly been an autoimmune inflammatory bowel disease masquerading as diverticulitiscontinue steroids, consult GI, hopefully scope in the near future to confirm diagnosis. Explained to patient in depth, he expressed understanding. Ambulation for DVT prophylaxis Otherwise as above Subjective Pt is a 67 yo male with a past medical history of recent diverticulitis 04/10, HTN, HLD, and nicotine dependence who presents to the hospital on 04/29 for diarrhea with lower GI bleeding. Today, pt was very upset when seen in the morning. He states that he is getting to the end of his rope at this point and he is just so tired of having many watery bowel movements a day. He states this has been now going on for about 25 days and he really has had minimal improvement at all. He states he has lower abdominal cramps at times that seem to get better when he has a bowel movement. He still notes bright red blood with bowel movements but states at this point his rectum feels very raw from having such a multitude of bowel movements. He states he is just so frustrated that he has now been to the hospital twice and has gotten no relief at all. He states he does get nauseated and zofran does maybe help some, no vomiting. Review of Systems Review of Systems: Per HPI. Physical Exam Physical Exam: General:Alert and oriented, no acute distress, frustrated HEENT: Normocephalic, moist oral mucosa, Cardio: Regular rate and rhythm, Resp:Lungs clear to auscultation b/l, no wheezes or rhonchi, GI: Bowel sounds hypoactive, soft, some lower abdominal tenderness noted Skin: Warm, pink, dry, Psych: Mood-affect congruence. Results & Data Results & Data Vital Signs (Past 12 Hours) Vital Signs Temp Pulse Pulse Resp BP Pulse Ox O2 Del Method 04/30/23 03:15 37.1 C 92 H 16 115/62 92 Room Air 04/29/23 23:32 37.3 C 103 H 22 121/73 95 Room Air 04/29/23 22:00 Room Air 04/29/23 22:00 111 H 04/29/23 19:24 37.1 C 79 14 117/79 96 Room Air Resident Activity Tracking Resident Involvement: Resident Care Provided Care Provided: Adult Hospital Medicine
[2023-04-30 07:28] LABS: Mean Corpuscular Hemoglobin 32.6 pg (25.0-34.0); Mean Corpuscular Hgb Conc 34.3 g/dL (32.0-36.0); Mean Corpuscular Volume 95.1 fL (80.0-100.0); Mean Platelet Volume 9.7 fL (9.4-12.4); Platelet Count 270 K/uL (130-400); RDW Coefficient of Variation 14.4 % (11.5-14.5); RDW Standard Deviation 49.9 fL (36.4-46.3); Red Blood Count 3.68 M/uL (4.70-6.10); White Blood Count 9.47 K/ul (4.8-10.8)
[2023-04-30 07:45] LABS: BUN Creatinine Ratio 7.1 (10-20); Calcium 8.4 mg/dl (8.6-10.3); Creatinine Clr Calc Pharmacy 62.4 ml/min; Est GFR (African American) 89.7 ml/min; Est GFR (Non-African American) 77.4 ml/min; Potassium 3.7 mmol/L (3.5-5.1)
[2023-04-30 07:55] LABS: Basophils # (auto) 0.06 K/uL (0.00-0.20); Basophils % (auto) 0.6 %; Eosinophils # (auto) 0.37 K/uL (0.00-0.50); Eosinophils % (auto) 3.9 %; Immature Granulocytes # (auto) 0.03 K/uL (0.01-0.20); Immature Granulocytes % (auto) 0.3 %; Lymphocytes # (auto) 1.39 K/uL (1.20-3.40); Lymphocytes % (auto) 14.7 %; Monocytes # (auto) 2.34 K/uL (0.11-0.59); Monocytes % (auto) 24.7 %; Neutrophils # (auto) 5.28 K/uL (1.40-6.50); Neutrophils % (auto) 55.8 %
--- NOTE | 2023-04-30 08:22 | Electrocardiogram Report ---
Test Reason : Blood Pressure : / mmHG Vent. Rate : 082 BPM Atrial Rate : 082 BPM P-R Int : 116 ms QRS Dur : 078 ms QT Int : 390 ms P-R-T Axes : 069 073 067 degrees QTc Int : 455 ms Normal sinus rhythm with sinus arrhythmia Normal ECG When compared with ECG of 10-APR-2023 07:34, No significant change was found Confirmed by Deonte San ([id number]) on 04/30/2023 8:22:38 AM Referred By: REFERRED SELF Confirmed By:Deonte San
[2023-04-30] MEDS: METHYLPREDNISOLONE IV SCH (09:02)
[2023-04-30] MEDS: CHOLESTYRAMINE LIGHT 4 GM PKT PO SCH ×2 (09:03→21:13)
[2023-04-30] MEDS ORDERED: MESALAMINE 4 GM/60 ML ENEMA PR ONE (11:08)
--- NOTE | 2023-04-30 11:08 | Gastrointestinal Consultation ---
Date of Consultation April 30, 2023 Assessment & Plan (1) Proctocolitis with rectal bleeding: He has a complicated story. He seems to have proctocolitis that isn't responding well to treatment. He may need longer course of IV steroids to get this under control. Colonoscopy would be helpful but if he did have acute diverticulitis then we have to delay minimum of six weeks according to recommendations. I think maybe adding mesalamine enema may help with some of the urgency and give him some symptomatic relief. Will follow with you. History of Present Illness Reason for Consultation: persistent diarrhea Attending Physician: Ebenezer Briscoe DO History of Present Illness 67 year old man with problems for the better part of April. Started in early april when he was treated for diverticulitis. Did not improve, returned to ER and was admitted for 12 days for treatment for diverticulitis and "proctocolitis". He was treated with antibiotics and steroids and says he never really got much better. He went home for a few days, did not do well and was admitted again yesterday morning. He has numerous bowel movements per day of what he calls small ejections. Most of the times brown and powdery, sometimes with blood. He has a lot of pain in his rectum/anus. He doesn't complain as much of pain in his abdomen. Review of CTs makes it difficult to say if he has had diverticulitis or this has always been colitis or has both been there. He has never had either before. Allergies Allergy/AdvReac Type Severity Reaction Status Date / Time erythromycin base Allergy Mild RASH Verified 04/10/23 10:24 tetracycline Allergy Mild RASH Verified 04/10/23 10:24 Home Medications Medication Instructions Recorded Confirmed Type fluticasone propionate 50 2 spray intranasal QAM 06/22/22 04/29/23 History mcg/actuation nasal spray,suspension (Flonase Allergy Relief) atorvastatin 40 mg tablet 40 mg PO QAM 04/10/23 04/29/23 History losartan 25 mg tablet 25 mg PO QAM 04/10/23 04/29/23 History montelukast 10 mg tablet 10 mg PO QAM 04/10/23 04/29/23 History L.acidop,casei,lactis,rham-B.lact,magaly 2 cap PO DAILY 30 days #60 caps 04/23/23 04/29/23 Rx 625 mg (10 billion cell) capsule (Advanced Probiotic) prednisone 5 mg tablet 5 mg PO DIRECTED #228 tabs 04/23/23 04/29/23 Rx Patient History Medical History Toxic effect of other tobacco and nicotine, undetermined, sequela History of kidney stones History of nasal polyp Hypertension Surgical History Hx of vasectomy History of colonoscopy with polypectomy (08/2016) tubular adenoma and hyperplastic polyp removed, repeat recommended in 5 years. History of nasal polypectomy H/O lithotripsy Family History Mother Colorectal cancer Family history of reaction to anesthesia nausea Grandmother Diabetes Grandmother (Paternal) Family history of diabetes mellitus Son Hypereosinophilic syndrome Son Hypereosinophilic syndrome Denies family history of Ovarian cancer Prostate cancer Heart disease Myocardial infarction Breast cancer Lung cancer Stroke Social History Smoking Status: Current some day smoker Tobacco Type: Cigarettes Age Started Using Tobacco: 26; packs per day: 0.25; Cigarettes Per Day: 4; Second Hand Exposure: Yes; Do You Dip or Chew Tobacco: No; Tobacco Cessation Education Requested by Patient: No Hx Alcohol Use: Yes Alcohol type: beer and wine Alcohol Intake Frequency Comment: drinks 2 beer every day Hx Substance Use: No Preferred Language: Cymro Communication Ability: Effective Visual Impairment: No Limitations Hearing Ability: Normal Business Analysis Analyst Required: No Beliefs That Will Affect Care: None marital status: Current Living Situation: Spouse current occupational status: retired current occupation: used to work in sales with [employer] Feels Safe at Home: Yes Safety Concerns: Feels Safe At This Time Childhood Exposure to Second-Hand Smoke: Yes Diet: regular caffeine: Yes Dental Care, Regularly: Yes Physical Activity Frequency: Does not Exercise Seatbelt Use: always Sunscreen Use: Yes Assistive Devices: Glasses Review of Systems Review of Systems: All systems reviewed & are unremarkable except as noted in HPI & below Physical Exam Constitutional: WD/WN, vitals as above no acute distress Eyes: PERRL, conjunctivae normal, anicteric sclerae ENMT: external ear and nose normal, oropharynx normal Neck: trachea midline, no thyromegaly Respiratory: normal respiratory effort, lungs clear to auscultation Cardiovascular: RRR, no murmur, no edema Gastrointestinal (Abdomen): normal bowel sounds, soft, nontender, no hepatosplenomegaly Musculoskeletal: Extremities: no cyanosis and no clubbing Skin: no rashes, warm and dry Neurologic: PERRL, EOMI, accommodation nl, no face palsy, no dysarthria Psychiatric: Orientation: alert and oriented x 3 Results & Data Vital Signs (Past 12 Hours) Vital Signs Temp Pulse Resp BP Pulse Ox O2 Del Method 04/30/23 07:27 37 C 64 18 112/65 92 Room Air 04/30/23 03:15 37.1 C 92 H 16 115/62 92 Room Air 04/29/23 23:32 37.3 C 103 H 22 121/73 95 Room Air Laboratory Results 04/30/23 04/29/23 04/29/23 Range/Units 07:09 22:42 17:26 WBC 9.47 (4.8-10.8) K/ul RBC 3.68 L (4.70-6.10) M/uL Hgb 12.0 L 13.9 L (14.0-18.0) g/dl Hct 35.0 L 41.2 L (42.0-52.0) % MCV 95.1 (80.0-100.0) fL MCH 32.6 (25.0-34.0) pg MCHC 34.3 (32.0-36.0) g/dL RDW Std Deviation 49.9 H (36.4-46.3) fL RDW Coeff of Ward 14.4 (11.5-14.5) % Plt Count 270 (130-400) K/uL MPV 9.7 (9.4-12.4) fL Immature Gran % (Auto) 0.3 % Neut % (Auto) 55.8 % Lymph % (Auto) 14.7 % [place] % (Auto) 24.7 % Eos % (Auto) 3.9 % Baso % (Auto) 0.6 % Neut # (Auto) 5.28 (1.40-6.50) K/uL Lymph # (Auto) 1.39 (1.20-3.40) K/uL [place] # (Auto) 2.34 H (0.11-0.59) K/uL Eos # (Auto) 0.37 (0.00-0.50) K/uL Baso # (Auto) 0.06 (0.00-0.20) K/uL Immature Gran # (Auto) 0.03 (0.01-0.20) K/uL Sodium 137 (136-145) mmol/L Potassium 3.7 (3.5-5.1) mmol/L Chloride 105 (98-107) mmol/L Carbon Dioxide 27 (21-32) mmol/L Anion Gap 5 (3-11) BUN 7 (6-23) mg/dl Creatinine 0.99 (0.6-1.4) mg/dl Est Cr Clr Drug Dosing 62.4 ml/min Est GFR ( Amer) 89.7 ml/min Est GFR (Non-Af Amer) 77.4 ml/min BUN/Creatinine Ratio 7.1 L (10-20) Glucose 82 (70-99(Fasting)) mg/dl Lactate Calcium 8.4 L (8.6-10.3) mg/dl Procalcitonin (0-0.5) ng/ml Urine Color Yellow Urine Appearance Clear (Clear) Urine pH 5.5 (4.5-7.5) Ur Specific [place] 1.044 H (1.000-1.030) Urine Protein Negative (Negative) Urine Glucose (UA) Negative (Negative) Urine Ketones Negative (Negative) Urine Blood Negative (Negative) Urine Nitrite Negative (Negative) Urine Bilirubin Negative (Negative) Urine Urobilinogen Negative (Negative) Ur Leukocyte Esterase Negative (Negative) 04/29/23 04/29/23 04/29/23 Range/Units 14:39 14:06 13:08 WBC (4.8-10.8) K/ul RBC (4.70-6.10) M/uL Hgb 12.4 L (14.0-18.0) g/dl Hct 36.3 L (42.0-52.0) % MCV (80.0-100.0) fL MCH (25.0-34.0) pg MCHC (32.0-36.0) g/dL RDW Std Deviation (36.4-46.3) fL RDW Coeff of Ward (11.5-14.5) % Plt Count (130-400) K/uL MPV (9.4-12.4) fL Immature Gran % (Auto) % Neut % (Auto) % Lymph % (Auto) % [place] % (Auto) % Eos % (Auto) % Baso % (Auto) % Neut # (Auto) (1.40-6.50) K/uL Lymph # (Auto) (1.20-3.40) K/uL [place] # (Auto) (0.11-0.59) K/uL Eos # (Auto) (0.00-0.50) K/uL Baso # (Auto) (0.00-0.20) K/uL Immature Gran # (Auto) (0.01-0.20) K/uL Sodium (136-145) mmol/L Potassium (3.5-5.1) mmol/L Chloride (98-107) mmol/L Carbon Dioxide (21-32) mmol/L Anion Gap (3-11) BUN (6-23) mg/dl Creatinine (0.6-1.4) mg/dl Est Cr Clr Drug Dosing ml/min Est GFR ( Amer) ml/min Est GFR (Non-Af Amer) ml/min BUN/Creatinine Ratio (10-20) Glucose (70-99(Fasting)) mg/dl Lactate 1.7 Cancelled Calcium (8.6-10.3) mg/dl Procalcitonin 0.18 (0-0.5) ng/ml Urine Color Urine Appearance (Clear) Urine pH (4.5-7.5) Ur Specific [place] (1.000-1.030) Urine Protein (Negative) Urine Glucose (UA) (Negative) Urine Ketones (Negative) Urine Blood (Negative) Urine Nitrite (Negative) Urine Bilirubin (Negative) Urine Urobilinogen (Negative) Ur Leukocyte Esterase (Negative) Diagnostic Findings Abdomen/Pelvis CT 04/29/23 07:40 CT SCAN OF THE ABDOMEN AND PELVIS WITH IV CONTRAST CLINICAL HISTORY: Generalized abdominal pain. Diarrhea. COMPARISON STUDY: Reason prior abdominal CT scans, most recently dated 04/19/2023. TECHNIQUE: Following the IV administration of 90 cc of Optiray 320, CT scan of the abdomen and pelvis is performed from the lung bases to the proximal femora. Images are reviewed in the axial, sagittal, and coronal planes. IV contrast was administered without complication. Oral contrast was utilized. A dose lowering technique was utilized adhering to the principles of ALARA. CT DOSE: 734.3 mGy.cm FINDINGS: Lung bases: The heart is normal in size and without pericardial effusion. The coronary arteries are densely calcified. A small hiatal hernia is noted. Emphysematous change is noted. A 3 mm left lower lobe pulmonary nodule on image #9 is unchanged. There are scattered calcified granulomas. No airspace consolidation or pleural effusion is identified. Liver: The contrast-enhanced liver is normal in size, contour, and attenuation. There is no intrahepatic biliary ductal dilatation. Fatty infiltration is seen adjacent to the falciform ligament. The hepatic veins and portal veins are patent. There are small calcified hepatic granulomas. Gallbladder: Unremarkable. Spleen: Normal in size and attenuation. There are calcified splenic granulomas. Pancreas: Unremarkable. Adrenal glands: Unremarkable. Kidneys: The contrast enhanced kidneys are normal in size and without hy dronephrosis. The kidneys enhance symmetrically. Scattered subcentimeter cortical hypodensities likely represent cysts but are too small for definitive characterization. There is a punctate nonobstructing right renal calculus. Abdominal vasculature: The abdominal aorta is normal in course and caliber noting moderate atherosclerotic calcification. Bowel: There is wall thickening and edema of the colon, greatest from the mid descending colon to the rectum. This is consistent with a nonspecific proctocolitis. Surrounding inflammation has improved as compared to the 04/19/2023 examination. There is no bowel obstruction. Enteric contrast reaches the left colon. There is mild colonic diverticulosis without CT evidence of acute diverticulitis.. There is a tiny duodenal diverticulum. The appendix is well-visualized and normal. Peritoneum: There is no intraperitoneal free air or abdominal ascites. Lymphadenopathy: There are prominent pericolonic lymph nodes in the left lower quadrant. A 1.3 x 0.8 cm ovoid density in the left lower quadrant image #208 likely represents a venous varix. This was question is a lymph node on the prior examination. No pathologically enlarged nodes are seen in the abdomen or pelvis. Pelvic viscera: The prostate gland is enlarged and heterogeneous. The bladder wall is thickened/trabeculated indicating chronic outlet obstruction. There are bilateral fat-containing groin hernias. Surgical clips are noted along the spermatic cord. Skeletal structures: No lytic or blastic lesions are seen. IMPRESSION: 1. Again seen is a nonspecific proctocolitis, greatest involving the left colon. The degree of surrounding inflammation has modestly improved from 04/19/2023. Consider follow-up colonoscopy to further evaluate the underlying colonic mucosa. 2. Prominent pericolonic lymph nodes are nonspecific and likely reactive. 3. Mild colonic diverticulosis without CT evidence of acute diverticulitis. 4. Emphysema. 5. Additional findings as above. ACT 112: Negative or not required by law. Electronically signed by: Cuate Webb M.D. 04/29/2023 10:18 AM
--- NOTE | 2023-04-30 13:26 | Billing Data ---
Date of Service April 30, 2023 Coding Level of Care Code 64479 SUB INP/OBS CARE MIN
[2023-04-30] MEDS: ONDANSETRON INJ 2 MG/ML 2 ML VIAL IV PRN (16:22)
[2023-04-30] MEDS: MESALAMINE 4 GM/60 ML ENEMA PR SCH (20:27)
[2023-04-30] MEDS ORDERED: HYDROmorphone INJ 0.5 MG/0.5 ML SYR IV STA (22:01)
[2023-05-01] MEDS: PIPERACILLIN/TAZOBACTAM 4.5 GM in DEXTROSE 5% MINI-B 100 ML IV SCH ×2 (01:39→10:08)
[2023-05-01] MEDS: PLASMA-LYTE A 1,000 ML IV SCH ×3 (05:31→20:07)
--- NOTE | 2023-05-01 06:56 | Hospitalist Progress Note ---
Date of Service May 01, 2023 Assessment & Plan (1) Diarrhea: (2) Hypertension: (3) Hyperlipidemia: (4) Proctocolitis with rectal bleeding: (5) Cigarette smoker: Plan Pt is a 67 yo male with a past medical history of recent diverticulitis 04/10, HTN, HLD, and nicotine dependence who presents to the hospital on 04/29 for diarrhea with lower GI bleeding. Diarrhea - recent hx of sigmoid diverticulitis via CT on 04/10, s/p 7 days cipro/flagyl,, D/C'ed on prednisone and augmentin - CT 04/29 shows proctocolitis with modest improvement, no diverticulitis Prior colonoscopy 12/2019 was with small mouth diverticula of the sigmoid col on, no acute abnormalities were noted. Repeat colo in 6 weeks as outpt. - c diff/biofire negative - Zofran as needed, Pepcid as needed, supplemental IVF pending improvement in diet - continue steroids - GI consulted; no scope for minimum 6 weeks due to recent diverticulitis - continue mesalamine enemas Proctocolitis with rectal bleeding - continue to monitor daily CBC, hgb has been stable - continue regime as noted above Hypertension - BPs have been largely 100-110s systolic - losartan temporarily held Hyperlipidemia - home atorvastatin held Nicotine dependence - 50 pack year, 4 cigs/day - nicotine 14 mg patch in CODE STATUS: Full code DVT prophylaxis SCDs, pharmacal prophylaxis deferred in the setting of hematochezia Admission and Anticipated Discharge Date Admission Date: April 29, 2023 Supervising Physician Co-Signing Physician Notes I personally examined the patient and verified all miranda points of history and exam, discussed case, and agree with decision making with Dr Wilkerson Feels about the same. Still a lot of bowel movements. Patient requested that we discussed with [facility] BUTLERcalamanda her she, outlined situation, [facility] noted they would likely be doing a scope given his failure to improve. Vitals noted, in general he appears fatigued and somewhat uncomfortable. Breathing unlabored no accessory muscle use good effort. Skin shows no rashes no pallor or icterus. Labs and diagnostics noted. Persistent proctocolitisinitially managed as diverticulitis, but clearly he has not improved with this line of management. I am more suspicious that he may be in the unlucky minority of people who develop inflammatory bowel disease later in life, and that his prior admission could have possibly been an autoimmune inflammatory bowel disease masquerading as diverticulitiscontinue steroids, continue mesalamine enemas. Agree with [facility] that I think a scope is warranted, understand GIs reticence with recent diagnosis of diverticulitis, but I really think that diagnosis with hindsight was probably erroneous and this has been inflammatory bowel disease all along. In signout with team assuming his care, asked that his case to be discussed with local GI coming on service tomorrow, and if they do not feel the scope is acutely warranted or safe, [facility] did not promise that they would accept him in transfer, but did say it might be worth calling hospitalist to discuss transfer. Hopefully we will just be able to get a scope inpatient while he is here given his refractory symptoms Ambulation for DVT prophylaxis Otherwise as above Subjective Pt is a 67 yo male with a past medical history of recent diverticulitis 04/10, HTN, HLD, and nicotine dependence who presents to the hospital on 04/29 for diarrhea with lower GI bleeding. Today, pt states he is still having frequent bowel movements. He states he tolerates the enemas fine but that he can only hold the enema in for a few minutes. He states he does not feel like it helped much yesterday but that he was able to sleep for an hour and a half at a time three times last night, which was a welcomed change. He did note some more blood in his stool yesterday but has been okay since. No further questions or concerns at this time. Review of Systems Review of Systems: Per HPI. Physical Exam Physical Exam: General:Alert and oriented, no acute distress, frustrated HEENT: Normocephalic, moist oral mucosa, Cardio: Regular rate and rhythm, Resp:Lungs clear to auscultation b/l, no wheezes or rhonchi, GI: Bowel sounds active, soft, Skin: Warm, pink, dry, Psych: Mood-affect congruence. Results & Data Results & Data Vital Signs (Past 12 Hours) Vital Signs Temp Pulse Resp BP Pulse Ox O2 Del Method 04/30/23 21:22 36.7 C 73 16 111/71 97 Room Air 04/30/23 19:37 Room Air Resident Activity Tracking Resident Involvement: Resident Care Provided Care Provided: Adult Hospital Medicine
[2023-05-01 08:29] LABS: Hematocrit (blood only) 39.4 % (42.0-52.0); Mean Corpuscular Hemoglobin 31.9 pg (25.0-34.0); Mean Corpuscular Volume 96.8 fL (80.0-100.0); Mean Platelet Volume 9.6 fL (9.4-12.4); Platelet Count 273 K/uL (130-400); RDW Coefficient of Variation 14.2 % (11.5-14.5); RDW Standard Deviation 50.4 fL (36.4-46.3); Red Blood Count 4.07 M/uL (4.70-6.10); White Blood Count 9.54 K/ul (4.8-10.8)
[2023-05-01 08:46] LABS: BUN Creatinine Ratio 13.3 (10-20); Calcium 8.7 mg/dl (8.6-10.3); Creatinine Clr Calc Pharmacy 74.4 ml/min; Est GFR (African American) 104.1 ml/min; Est GFR (Non-African American) 89.8 ml/min; Potassium 3.7 mmol/L (3.5-5.1)
[2023-05-01 09:07] LABS: Basophils # (auto) 0.03 K/uL (0.00-0.20); Basophils % (auto) 0.3 %; Eosinophils # (auto) 0.19 K/uL (0.00-0.50); Immature Granulocytes # (auto) 0.06 K/uL (0.01-0.20); Immature Granulocytes % (auto) 0.6 %; Lymphocytes # (auto) 1.79 K/uL (1.20-3.40); Lymphocytes % (auto) 18.8 %; Monocytes # (auto) 1.93 K/uL (0.11-0.59); Monocytes % (auto) 20.2 %; Neutrophils # (auto) 5.54 K/uL (1.40-6.50); Neutrophils % (auto) 58.1 %
--- NOTE | 2023-05-01 09:49 | Gastroenterology Progress Note ---
Date of Service May 01, 2023 Assessment & Plan (1) Diarrhea: Plan: I think the mesalamine enemas may help give him some relief along with continued IV steroids. I understand his frustration and asked him to speak with attending physician about transfer Admission and Anticipated Discharge Date Admission Date: April 29, 2023 Subjective Received enema yesterday but was only able to hold it for a minute or so. Did get some relief from it. Unfortunately that was the only mesalamine enema the hospital has until tomorrow. He is very frustrated and asking about transfer to [place] Physical Exam Physical Exam: He looks well Constitutional: WD/WN, vitals as above Results & Data Vital Signs (Past 12 Hours) Vital Signs Temp Pulse Resp BP Pulse Ox O2 Del Method 05/01/23 08:52 Room Air 05/01/23 07:09 36.9 C 70 18 110/68 97 Room Air
[2023-05-01] MEDS: METHYLPREDNISOLONE IV SCH (10:08)
[2023-05-01] MEDS: CHOLESTYRAMINE LIGHT 4 GM PKT PO SCH ×2 (10:08→20:08)
[2023-05-01] MEDS: ONDANSETRON INJ 2 MG/ML 2 ML VIAL IV PRN (18:08)
[2023-05-01] MEDS: HYDROmorphone INJ 0.5 MG/0.5 ML SYR IV PRN (18:08)
--- NOTE | 2023-05-01 18:15 | Billing Data ---
Date of Service May 01, 2023 Coding Level of Care Code 28530 SUB INP/OBS CARE MIN
--- NOTE | 2023-05-01 18:15 | Billing Data ---
Date of Service May 01, 2023 Coding Level of Care Code PROLONG IP/OBS E/M EA 15 MIN
[2023-05-01] MEDS: MESALAMINE 4 GM/60 ML ENEMA PR SCH (20:07)
[2023-05-02] MEDS: HYDROmorphone INJ 1 MG/ML SYRINGE IV PRN ×3 (00:10→22:07)
[2023-05-02] MEDS: PLASMA-LYTE A 1,000 ML IV SCH ×3 (03:20→20:20)
[2023-05-02] MEDS: ONDANSETRON INJ 2 MG/ML 2 ML VIAL IV PRN ×2 (06:08→22:07)
--- NOTE | 2023-05-02 07:25 | Hospitalist Progress Note ---
Date of Service May 02, 2023 Assessment & Plan (1) Diarrhea: (2) Hypertension: (3) Hyperlipidemia: (4) Proctocolitis with rectal bleeding: (5) Cigarette smoker: Plan Pt is a 67 yo male with a past medical history of recent diverticulitis 04/10, HTN, HLD, and nicotine dependence who presents to the hospital on 04/29 for diarrhea with lower GI bleeding. Diarrhea - recent hx of sigmoid diverticulitis via CT on 04/10, s/p 7 days cipro/flagyl,, D/C'ed on prednisone and augmentin - CT 04/29 shows proctocolitis with modest improvement, no diverticulitis Prior colonoscopy 12/2019 was with small mouth diverticula of the sigmoid colon, no acute abnormalities were noted. Repeat colo in 6 weeks as outpt. - c diff/biofire negative - Zofran as needed, Pepcid as needed, supplemental IVF pending improvement in diet - continue steroids, continue mesalamine enemas as pt is seeing improvement - GI consulted; no scope for minimum 6 weeks due to recent diverticulitis (and risk of microperforation) Proctocolitis with rectal bleeding - continue to monitor daily CBC, hgb has been stable - continue regime as noted above Hypertension - BPs have been largely 100-110s systolic - losartan temporarily held Hyperlipidemia - home atorvastatin held Nicotine dependence - 50 pack year, 4 cigs/day - nicotine 14 mg patch in CODE STATUS: Full code DVT prophylaxis SCDs, pharmacol. prophylaxis deferred in the setting of hematochezia Admission and Anticipated Discharge Date Admission Date: May 01, 2023 Supervising Physician Co-Signing Physician Notes I also saw the patient confirmed miranda portions of the clinical history and physical exam. I agree with the impression and plan as noted in resident documentation above. Upon our morning exam, the patient feels slightly better. Decreased bowel m ovements. Exam 150/84, 69, 20, 36.9, 94% on room air Pleasant alert. No acute distress appreciated. Mucous membranes moist Heart rate regular Respirations nonlabored Abdomen generally soft and nontender Data White blood cell count 9.56, hemoglobin 13.4 BUN 11, creatinine 0.77 Impression and plan Proctocolitis Some hint of improvement with steroids and mesalamine enemas Appreciate GI consultation We will start clear liquid diet today and see how he does Discussed at some point will need a colonoscopy or at least a sigmoidoscopy in the short-term Additional per resident documentation Subjective Patient is a 67 yo M w/ a PMHx of HLD, HTN, pulmonary nodules, salivary gland hyperplasia, and, recently diarrhea, AP who was previously admitted twice for diverticulitis, now re-admitted for what seems like IBD. Received 3-4 enemas yesterday and day before combined. Did get some relief from it, but w/ some bloody discharge noticed. Unfortunately that was the only mesalamine enema the hospital has until tomorrow. Patient has noticed increased blood in diarrhea since enemas. Son stated pt has been moving bowels ~ 50x day. He was very frustrated and was asking about transfer to [place], but seems to be improving with recent IBD treatment. Review of Systems Review of Systems: Patient has not eaten since afternoon. Constitutional: no fever, no chills and no body aches Respiratory: no cough and no dyspnea Cardiovascular: no chest pain and no palpitations Gastrointestinal: + abdominal pain (7 or 8/10 when on toil et about ready to go), + nausea, + cramping, + diarrhea/loose stools and + blood in stools; no vomiting Genitourinary: no dysuria, no urinary frequency or no hematuria Musculoskeletal: no myalgia and no body aches Integumentary: no rash Results & Data Results & Data Vital Signs (Past 12 Hours) Vital Signs Temp Pulse Resp BP Pulse Ox O2 Del Method 05/01/23 20:06 36.9 C 74 16 127/76 98 Room Air Resident Activity Tracking Resident Involvement: Resident Care Provided Care Provided: Adult Hospital Medicine
[2023-05-02 07:29] LABS: Hematocrit (blood only) 40.7 % (42.0-52.0); Hemoglobin 13.4 g/dl (14.0-18.0); Mean Corpuscular Hemoglobin 31.8 pg (25.0-34.0); Mean Corpuscular Hgb Conc 32.9 g/dL (32.0-36.0); Mean Corpuscular Volume 96.4 fL (80.0-100.0); Platelet Count 325 K/uL (130-400); RDW Coefficient of Variation 13.9 % (11.5-14.5); RDW Standard Deviation 49.2 fL (36.4-46.3); Red Blood Count 4.22 M/uL (4.70-6.10); White Blood Count 9.56 K/ul (4.8-10.8)
[2023-05-02 07:45] LABS: BUN Creatinine Ratio 14.3 (10-20); Calcium 8.9 mg/dl (8.6-10.3); Creatinine Clr Calc Pharmacy 80.2 ml/min; Est GFR (African American) 107.3 ml/min; Est GFR (Non-African American) 92.6 ml/min; Potassium 3.9 mmol/L (3.5-5.1)
[2023-05-02 08:00] LABS: Basophils # (auto) 0.04 K/uL (0.00-0.20); Basophils % (auto) 0.4 %; Eosinophils # (auto) 0.13 K/uL (0.00-0.50); Eosinophils % (auto) 1.4 %; Immature Granulocytes # (auto) 0.06 K/uL (0.01-0.20); Immature Granulocytes % (auto) 0.6 %; Lymphocytes # (auto) 2.23 K/uL (1.20-3.40); Lymphocytes % (auto) 23.3 %; Monocytes # (auto) 1.78 K/uL (0.11-0.59); Monocytes % (auto) 18.6 %; Neutrophils # (auto) 5.32 K/uL (1.40-6.50); Neutrophils % (auto) 55.7 %; Polychromasia 1+
[2023-05-02] MEDS ORDERED: DEXTROSE 50% 50 ML SYRINGE IV ONE (09:17)
[2023-05-02] MEDS: METHYLPREDNISOLONE IV SCH (09:25)
[2023-05-02] MEDS: CHOLESTYRAMINE LIGHT 4 GM PKT PO SCH ×2 (09:25→20:20)
--- NOTE | 2023-05-02 09:57 | Gastroenterology Progress Note ---
Date of Service May 02, 2023 Assessment & Plan (1) Proctocolitis with rectal bleeding: (2) Diarrhea: Plan 1. Continue Solu-Medrol 35 mg IV daily. 2. Continue rectal mesalamine enemas. 3. Diet advancement to low residue as tolerated. 4. Supportive care. Admission and Anticipated Discharge Date Admission Date: May 01, 2023 Supervising Physician Co-Signing Physician Notes I saw the patient and agree with the findings as documented by CANDIDO Pittman Subjective Patient reports slow improvement. States he has dropped from 50 bms daily to approximately 30. Continues with rectal pain especially after bms and when sitting. No bleeding. Continues rectal mesalamine and IV corticosteroids. No leukocytosis. Mild anemia. Review of Systems Constitutional: + fatigue; no fever and no chills Gastrointestinal: as per Subjective / HPI Physical Exam Constitutional: WD/WN, vitals as above Respiratory: normal respiratory effort, lungs clear to auscultation Cardiovascular: RRR, no murmur, no edema Gastrointestinal (Abdomen): normal bowel sounds, soft, nontender, no hepatosplenomegaly Psychiatric: A+Ox3, euthymic affect Results & Data Results & Data Vital Signs (Past 12 Hours) Vital Signs Temp Pulse Resp BP 05/02/23 08:05 37.0 C 74 16 129/71 PG Care Time/CCT Total # of Minutes Spent Total Time Spent with Patient: Total time spent is greater than 50% in coordination of care (as documented) at patient's floor/unit and/or counseling patient: Coding Level of Care Code 39258 SUB INP/OBS CARE 3/50MIN Diagnoses Proctocolitis with rectal bleeding K52.9; K62.5 Diarrhea R19.7
[2023-05-02] MEDS: MESALAMINE 4 GM/60 ML ENEMA PR SCH (20:21)
[2023-05-03] MEDS: HYDROmorphone INJ 0.5 MG/0.5 ML SYR IV PRN (03:09)
[2023-05-03] MEDS: PLASMA-LYTE A 1,000 ML IV SCH ×3 (04:04→20:21)
[2023-05-03 07:11] LABS: Hematocrit (blood only) 35.6 % (42.0-52.0); Hemoglobin 11.8 g/dl (14.0-18.0); Mean Corpuscular Hemoglobin 31.9 pg (25.0-34.0); Mean Corpuscular Hgb Conc 33.1 g/dL (32.0-36.0); Mean Corpuscular Volume 96.2 fL (80.0-100.0); Mean Platelet Volume 9.9 fL (9.4-12.4); Platelet Count 254 K/uL (130-400); RDW Coefficient of Variation 13.8 % (11.5-14.5); RDW Standard Deviation 48.7 fL (36.4-46.3); White Blood Count 8.49 K/ul (4.8-10.8)
[2023-05-03 07:25] LABS: BUN Creatinine Ratio 11.3 (10-20); Creatinine Clr Calc Pharmacy 86.9 ml/min; Est GFR (Non-African American) 95.7 ml/min; Potassium 3.8 mmol/L (3.5-5.1)
--- NOTE | 2023-05-03 07:30 | Hospitalist Progress Note ---
Date of Service May 03, 2023 Assessment & Plan (1) Proctocolitis with rectal bleeding: (2) Diarrhea: (3) Hypertension: (4) Hyperlipidemia: (5) Cigarette smoker: Plan Pt is a 67 yo male with a past medical history of recent diverticulitis 04/10, HTN, HLD, and nicotine dependence who presents to the hospital on 04/29 for diarrhea with lower GI bleeding. Diarrhea - recent hx of sigmoid diverticulitis via CT on 04/10, s/p 7 days cipro/flagyl, D/C'ed on prednisone and augmentin - CT 04/29 shows proctocolitis with modest improvement, no diverticulitis Prior colonoscopy 12/2019 was with small mouth diverticula of the sigmoid colon, no acute abnormalities were noted. Repeat colo in 6 weeks as outpt. - c diff/biofire negative - Zofran as needed, Pepcid as needed, supplemental IVF pending improvement in diet - continue methylprednisolone but increase dose, 50 mg, IV, daily; add Protonix, 40 mg, PO, BID - continue mesalamine enemas, BID, as pt is seeing improvement - GI consulted; no scope for minimum 6 weeks due to recent diverticulitis (and risk of microperforation) Proctocolitis with rectal bleeding - continue to monitor daily CBC, hgb has been stable - continue regime as noted above Hypertension - BPs have been largely 100-110s systolic - losartan temporarily held Hyperlipidemia - home atorvastatin held Nicotine dependence - 50 pack year, 4 cigs/day - nicotine 14 mg patch in CODE STATUS: Full code DVT prophylaxis SCDs, pharmacol. prophylaxis deferred in the setting of hematochezia Admission and Anticipated Discharge Date Admission Date: May 01, 2023 Supervising Physician Co-Signing Physician Notes Attending attestation Pt seen and examined in concert with Dr. Bashir. In agreement with the documented findings as noted in the resident documentation with any exceptions or additions as noted here. Reports significant exacerbation of symptoms early this morning with ongoing improvement throughout the course of the day, tolerated lunch without exacerbation of symptoms. On examination, S1/S2 nl RRR no MCG. CTAB. Abd NT/ND BS+ve VS: 127/74 ; 73; 16; 36.9C; 94% RA Data: WBC 8.49, Hgb 11.8, BUN 8, Cr 0.71 Proctocolitis - potential improvement over the last few hours. GI consult appreciated. Would up adjust steroid dosing and consider increase to BID mesalamine based on conversation with GI. If symptoms worsen, would strongly favor transfer to tertiary facility for diagnostics. Else see resident documentation as noted. Subjective Patient is a 67 yo M w/ a PMHx of HLD, HTN, pulmonary nodules, salivary gland hyperplasia, and, recently diarrhea, AP who was previously admitted twice for diverticulitis, now re-admitted for similar symptoms, etiologies still under consideration, including an IBD. Received 1 enema yesterday (maintenance schedule). Did get some relief from it, but w/ some bloody discharge noticed. Patient has noticed increased blood in diarrhea since enemas. Son stated pt has been moving bowels ~ 50x day. He has been frustrated with lack of definitive Dx; not showing continuing improvement with recent IBD treatment. Patient's pain 7 or 810. Review of Systems Review of Systems: Patient has begun a diet again, doing clear liquids. Constitutional: no fever, no chills and no body aches Respiratory: no cough and no dyspnea Cardiovascular: no chest pain and no palpitations Gastrointestinal: + abdominal pain (7 or 8 when on toil et about ready to go), + nausea, + cramping, + diarrhea/loose stools and + blood in stools; no vomiting Genitourinary: no dysuria, no urinary frequency or no hematuria Musculoskeletal: no myalgia and no body aches Integumentary: no rash Physical Exam Constitutional: WD/WN, vitals as above Respiratory: normal respiratory effort, lungs clear to auscultation Cardiovascular: RRR, no murmur, no edema Gastrointestinal (Abdomen): normal bowel sounds, soft, nontender, no hepatosplenomegaly Musculoskeletal: Extremities: extremities normal to inspection Results & Data Results & Data Vital Signs (Past 12 Hours) Vital Signs Temp Pulse Resp BP Pulse Ox O2 Del Method 05/02/23 22:51 36.5 C 76 18 147/85 H 95 Room Air Resident Activity Tracking Resident Involvement: Resident Care Provided Care Provided: Adult Hospital Medicine
[2023-05-03] MEDS: CHOLESTYRAMINE LIGHT 4 GM PKT PO SCH ×2 (09:17→21:08)
[2023-05-03] MEDS: METHYLPREDNISOLONE IV SCH (09:18)
[2023-05-03] MEDS: HYDROmorphone INJ 1 MG/ML SYRINGE IV PRN ×2 (17:44→21:12)
[2023-05-03] MEDS ORDERED: methylPREDNISolone 20 MG in SYRINGE 0 ML IV ONE (18:46)
[2023-05-03] MEDS ORDERED: MESALAMINE PR SCH (21:00)
[2023-05-03] MEDS: methylPREDNISolone 50 MG in SYRINGE 0 ML IV SCH (21:07)
[2023-05-03] MEDS: PANTOprazole 40 MG TAB PO SCH (21:08)
[2023-05-03] MEDS: ONDANSETRON INJ 2 MG/ML 2 ML VIAL IV PRN (21:13)
[2023-05-03] MEDS: MESALAMINE 4 GM/60 ML ENEMA PR SCH (21:34)
[2023-05-04] MEDS: HYDROmorphone INJ 1 MG/ML SYRINGE IV PRN ×4 (01:23→20:54)
[2023-05-04] MEDS: PLASMA-LYTE A 1,000 ML IV SCH ×3 (04:03→19:52)
[2023-05-04 08:17] LABS: Basophils # (auto) 0.04 K/uL (0.00-0.20); Basophils % (auto) 0.4 %; Hematocrit (blood only) 40.5 % (42.0-52.0); Hemoglobin 13.6 g/dl (14.0-18.0); Immature Granulocytes # (auto) 0.07 K/uL (0.01-0.20); Immature Granulocytes % (auto) 0.7 %; Lymphocytes # (auto) 0.91 K/uL (1.20-3.40); Lymphocytes % (auto) 9.3 %; Mean Corpuscular Hemoglobin 31.8 pg (25.0-34.0); Mean Corpuscular Hgb Conc 33.6 g/dL (32.0-36.0); Mean Corpuscular Volume 94.6 fL (80.0-100.0); Mean Platelet Volume 9.4 fL (9.4-12.4); Monocytes # (auto) 1.42 K/uL (0.11-0.59); Monocytes % (auto) 14.5 %; Neutrophils # (auto) 7.37 K/uL (1.40-6.50); Neutrophils % (auto) 75.1 %; Platelet Count 286 K/uL (130-400); RDW Coefficient of Variation 13.5 % (11.5-14.5); RDW Standard Deviation 47.4 fL (36.4-46.3); Red Blood Count 4.28 M/uL (4.70-6.10); White Blood Count 9.81 K/ul (4.8-10.8)
[2023-05-04 08:37] LABS: BUN Creatinine Ratio 12.9 (10-20); Calcium 8.5 mg/dl (8.6-10.3); Creatinine Clr Calc Pharmacy 88.2 ml/min; Est GFR (African American) 111.6 ml/min; Est GFR (Non-African American) 96.3 ml/min; Potassium 4.4 mmol/L (3.5-5.1)
[2023-05-04] MEDS: methylPREDNISolone 50 MG in SYRINGE 0 ML IV SCH (09:12)
[2023-05-04] MEDS: PANTOprazole 40 MG TAB PO SCH ×2 (09:12→20:55)
[2023-05-04] MEDS: CHOLESTYRAMINE LIGHT 4 GM PKT PO SCH ×2 (09:19→20:55)
[2023-05-04] MEDS: MESALAMINE 4 GM/60 ML ENEMA PR SCH ×2 (09:25→21:20)
--- NOTE | 2023-05-04 15:23 | Hospitalist Progress Note ---
Date of Service May 04, 2023 Assessment & Plan (1) Proctocolitis with rectal bleeding: (2) Diarrhea: (3) Hypertension: (4) Hyperlipidemia: (5) Cigarette smoker: Plan Pt is a 67 yo male with a past medical history of recent diverticulitis 04/10, HTN, HLD, and nicotine dependence who presents to the hospital on 04/29 for diarrhea with lower GI bleeding. Diarrhea - recent hx of sigmoid diverticulitis via CT on 04/10, s/p 7 days cipro/flagyl, D/C'ed on prednisone and augmentin - CT 04/29 shows proctocolitis with modest improvement, no diverticulitis Prior colonoscopy 12/2019 was with small mouth diverticula of the sigmoid colon, no acute abnormalities were noted. Repeat colo in 6 weeks as outpt. - c diff/biofire negative - Zofran as needed, Pepcid as needed, supplemental IVF pending improvement in diet - continue methylprednisolone but increase dose, 50 mg, IV, daily; add Protonix, 40 mg, PO, BID - continue mesalamine enemas, BID, as pt is seeing improvement - GI consulted; no scope for minimum 6 weeks due to recent diverticulitis (and risk of microperforation) Proctocolitis with rectal bleeding - continue to monitor daily CBC, hgb has been stable - continue regime as noted above Hypertension - BPs have been largely 100-110s systolic - losartan temporarily held Hyperlipidemia - home atorvastatin held Nicotine dependence - 50 pack year, 4 cigs/day - nicotine 14 mg patch in CODE STATUS: Full code DVT prophylaxis SCDs, pharmacol. prophylaxis deferred in the setting of hematochezia Admission and Anticipated Discharge Date Admission Date: May 01, 2023 Supervising Physician Co-Signing Physician Notes Attending attestation Pt seen and examined in concert with Dr. Bashir. In agreement with the documented findings as noted in the resident documentation with any exceptions or additions as noted here. Overall reported decrease in frequency of bowel movements as well as perianal symptoms with increased steroid and enema use. Interested in advancing diet. On examination, S1/S2 nl RRR no MCG. CTAB. Abd NT/ND BS+ve VS: 127/77, 69, 16, 36.6C, 95% RA Data: WBC 9.81, Hgb 13.6, BUN 9, Cr 0.70 Proctocolitis - despite ongoing improvement, patient interested [place] [facility] Will d/w that service but hopeful improvement may obviate transfer if persists. Continue mesalamine and steroid therapy. Else see resident documentation as noted. Subjective Patient is a 67 yo M w/ a PMHx of HLD, HTN, pulmonary nodules, salivary gland hyperplasia, and, recently diarrhea, AP who was previously admitted twice for diverticulitis, now re-admitted for similar symptoms, etiologies still under consideration, including an IBD. Received 1 enema yesterday (maintenance schedule). Did get some relief from it, but w/ some bloody discharge noticed. Patient has noticed increased blood in diarrhea since enemas. Son stated pt has been moving bowels ~ 50x day. He has been frustrated with lack of definitive Dx; recent IBD treatment w/ IV methylprednisolone, 2x daily mesalamine enemas, seem to be intermittently improving the patient's pain, somewhat decreasing patient's frequency of diarrheal episodes. Patient's pain 7 or 8/10 when moving bowels; can subside to 2/10 between episodes when lying in bed. Review of Systems Review of Systems: Patient has begun a diet again, doing clear liquids. Constitutional: no fever, no chills and no body aches Respiratory: no cough and no dyspnea Cardiovascular: no chest pain and no palpitations Gastrointestinal: + abdominal pain (7 or 8/10 when on toil et about ready to go), + nausea, + cramping, + diarrhea/loose stools and + blood in stools; no vomiting Genitourinary: no dysuria, no urinary frequency or no hematuria Musculoskeletal: no myalgia and no body aches Integumentary: no rash Physical Exam Constitutional: WD/WN, vitals as above Respiratory: normal respiratory effort, lungs clear to auscultation Cardiovascular: RRR, no murmur, no edema Gastrointestinal (Abdomen): normal bowel sounds, soft, nontender, no hepatosplenomegaly Musculoskeletal: Extremities: extremities normal to inspection Results & Data Results & Data Vital Signs (Past 12 Hours) Vital Signs Temp Pulse Resp BP Pulse Ox O2 Del Method 05/04/23 15:15 36.6 C 69 16 127/77 95 Room Air 05/04/23 07:20 36.6 C 70 16 119/67 95 Room Air
[2023-05-04] MEDS: ONDANSETRON INJ 2 MG/ML 2 ML VIAL IV PRN (20:54)
[2023-05-04] MEDS ORDERED: ACETAMINOPHEN 325 MG TAB PO PRN (23:45)
[2023-05-05] MEDS: HYDROmorphone INJ 1 MG/ML SYRINGE IV PRN ×3 (01:08→18:11)
[2023-05-05] MEDS: PLASMA-LYTE A 1,000 ML IV SCH ×3 (02:54→20:16)
[2023-05-05 06:21] LABS: Basophils # (auto) 0.02 K/uL (0.00-0.20); Basophils % (auto) 0.3 %; Eosinophils # (auto) 0.03 K/uL (0.00-0.50); Eosinophils % (auto) 0.4 %; Hematocrit (blood only) 31.4 % (42.0-52.0); Hemoglobin 10.8 g/dl (14.0-18.0); Immature Granulocytes # (auto) 0.02 K/uL (0.01-0.20); Immature Granulocytes % (auto) 0.3 %; Lymphocytes # (auto) 2.14 K/uL (1.20-3.40); Lymphocytes % (auto) 30.5 %; Mean Corpuscular Hemoglobin 32.3 pg (25.0-34.0); Mean Corpuscular Hgb Conc 34.4 g/dL (32.0-36.0); Mean Platelet Volume 9.7 fL (9.4-12.4); Monocytes # (auto) 1.35 K/uL (0.11-0.59); Monocytes % (auto) 19.3 %; Neutrophils # (auto) 3.45 K/uL (1.40-6.50); Neutrophils % (auto) 49.2 %; Platelet Count 208 K/uL (130-400); RDW Coefficient of Variation 13.6 % (11.5-14.5); RDW Standard Deviation 46.6 fL (36.4-46.3); Red Blood Count 3.34 M/uL (4.70-6.10); White Blood Count 7.01 K/ul (4.8-10.8)
[2023-05-05 06:42] LABS: BUN Creatinine Ratio 10.1 (10-20); Calcium 7.6 mg/dl (8.6-10.3); Creatinine Clr Calc Pharmacy 78.1 ml/min; Est GFR (African American) 106.2 ml/min; Est GFR (Non-African American) 91.6 ml/min; Potassium 3.6 mmol/L (3.5-5.1)
[2023-05-05 08:07] LABS: Albumin Globulin Ratio 1.6 (0.9-2); Albumin Level 2.9 gm/dl (3.4-5.0); Bilirubin,Total 0.6 mg/dl (0.2-1.0); Globulin 1.8 gm/dl (2.5-4.0); Total Protein 4.7 gm/dl (6.0-8.3)
[2023-05-05] MEDS: ONDANSETRON INJ 2 MG/ML 2 ML VIAL IV PRN (08:43)
[2023-05-05] MEDS: MESALAMINE 4 GM/60 ML ENEMA PR SCH ×2 (10:11→20:17)
[2023-05-05] MEDS: CHOLESTYRAMINE LIGHT 4 GM PKT PO SCH ×2 (10:11→20:17)
[2023-05-05] MEDS: PANTOprazole 40 MG TAB PO SCH ×2 (10:11→20:16)
[2023-05-05] MEDS: methylPREDNISolone 50 MG in SYRINGE 0 ML IV SCH (10:11)
--- NOTE | 2023-05-05 18:05 | Discharge Summary ---
Date of Service May 05, 2023 Admission HPI Per Admitting Provider Per ER Review: Previously seen by Dr. Ndiaye 04/20/23. Intubated to have colonoscopy in 8 weeks, colonoscopy prior not recommended due to recent diverticulitis. Patient was started on hydrocortisone suppository at that time but did not improve and was switched to Solu-Medrol for proctocolitis. He did begin to improve around 04/22 with an improvement in his appetite, advance diet, and decreased frequency of bowel movements. He was discharged on prednisone 40 mg with 5-week taper and with plans for follow-up colonoscopy 8 weeks from his diverticulitis. Following discharge patient did not improve despite antibiotic therapy, and has had worsening bleeding and diarrhea since discharge. Patient at his transitional care visit 04/25 and was continued to be symptomatic, he was switched from Cipro/Flagyl to Augmentin due to worsening symptoms. Prednisone taper was continued. He was continued on a probiotic. On ER evaluation he continues to have rectal discomfort, mild dull abdominal pain in the left lower quadrant, poor appetite, and endorses bright red blood in stool. He is borderline hypotensive in the ER. He does have a leukocytosis in the setting of steroid use without left shift. Hemoglobin is 14.3 from last 10.9, clinically is volume contracted. Creatinine 1.15 with baseline of approximately 1.1. Stool bio fire and C. difficile are negative on 04/29. Repeat CTA/P with both oral and IV contrast shows a nonspecific proctocolitis greatest involving the left colon, inflammation is improving compared to 04/19/2023. Nonspecific pericolonic lymph node prominence suspected reactive; mild diverticulosis without evidence of ongoing diverticulitis. No bowel obstruction is seen. No free air or abdominal ascites is noted. No abscess is seen. Per Pt: After being discharged after his prior admit did 'ok' for about 2 days. Small meals Tuesday and Tuesday and did 'OK" and diarrhea was improving but then felt poorly Tuesday, and then Tuesday had much more discomfort with attempted meals and diarrhea increased. Called outpatient GI, had some water and tea but otherwise didn't keep much of anything down. BMs had improved a little and was liquidy brown, but had a feeling of need to have a BM in the last few times. Last 2 days has had 10x more BMs than usual. had a thicker texture and muddy brown, a little firmer than alfa rin the week. After a while he had more cramping and pain. Had continued to have BMs through the evening and yesterday and today had sweats, shakes, and 'just didn't feel right.' so came back it. He reports he has had bright red blood, sometimes pink blood for the last 25 days. In th elast 3 days has had 'interspeckled blood and clots' and some pink blood in the toilet as well. No maroon blood last 3 days, yesterday for the first time had 'bowel movement which was black as coal and sticky, jet black.' This was at 3:30am. BMs since that time has returend to brown. This morning has gone at least a dozen times. Did keep ocntrast down, but has upset his stomach 'and has had a little bi tof an impract.' ER visit 04/10: Discharged on Cipro/Flagyl 7-day course for sigmoid/transverse diverticulitis Return and Admitted 04/14/2023 for diverticulitis with worsening hematochezia. - Treated with Zosyn 04/15/2023 - 04/23/2023. Was discharged to complete 3 additional days of Augmentin twice daily for total course of 10-day antibiotic. (completed 04/26/23) -[facility] [place] GI consult on 04/20/2023 and was started on a hydrocortisone rectal suppository to help with inflammation, did not improve and was switched to IV Solu-Medrol 40 mg twice daily for proctocolitis on 04/21/2023. - On discharge 04/23 in addition to augmentin as noted was to complete 4 more days of prednisone 40 mg daily, then take 35 mg for 1 week and taper by 5 mg every 7 day. Patient has been taking this as directed, and has been on prednisone for 35mg x3 days Medical History: Reviewed Medications: Reviewed Surgical History: Reviewed Family history: Reviewed Allergies: Reviewed Social History: Ongoing tobacco abuse 4 cigarettes/day, social alcohol use without history of withdrawal, no recreational drug use Code Status: Full code Admission Exam Per Admitting Provider Physical Exam: General: A&Ox3. NAD. Cooperative. HEENT: Atraumatic, normocephalic. Mucous membranes dry Pulm: CTAB A&P. -wheezes, -rales, -rhonchi. Symmetrical chest rise. No increased work of breathing. No respiratory distress. Cardiac: RRR, -mrg. Radial pulses intact and symmetrical. Abdominal: Nontender, nondistended, soft. Specifically he has no left lower quadrant tenderness and no rebound BS present. Extremities: Warm, Principal Diagnosis persistent proctolitis Discharge Exam Constitutional WD/WN, vitals as above Respiratory normal respiratory effort, lungs clear to auscultation Cardiovascular RRR, no murmur, no edema Gastrointestinal (Abdomen) normal bowel sounds, soft, nontender, no hepatosplenomegaly Musculoskeletal Extremities: extremities normal to inspection Discharge Data Allergies Allergy/AdvReac Type Severity Reaction Status Date / Time erythromycin base Allergy Mild RASH Verified 04/10/23 10:24 tetracycline Allergy Mild RASH Verified 04/10/23 10:24 Consultations 04/29/23 07:51 ED Decision to Admit Stat 04/30/23 09:09 Consult Gastroenterology Routine Ordered Studies 04/29/23 07:40 CT abd pelvis oral and IV con Stat Hospital Course (1) Proctocolitis with rectal bleeding: (2) Diarrhea: (3) Hypertension: (4) Hyperlipidemia: (5) Cigarette smoker: Plan Pt is a 67 yo male with a past medical history of recent diverticulitis 04/10, HTN, HLD, and nicotine dependence who presents to the hospital on 04/29 for diarrhea with lower GI bleeding. Diarrhea - recent hx of sigmoid diverticulitis via CT on 04/10, s/p 7 days cipro/flagyl, D/C'ed on prednisone and augmentin - CT 04/29 shows proctocolitis with modest improvement, no diverticulitis Prior colonoscopy 12/2019 was with small mouth diverticula of the sigmoid colon, no acute abnormalities were noted. Repeat colo in 6 weeks as outpt. - c diff/biofire negative - Zofran as needed, Pepcid as needed, supplemental IVF pending improvement in diet - continued methylprednisolone but increased dose, 50 mg, IV, daily; add Protonix, 40 mg, PO, BID - continued mesalamine enemas, BID, - pt has not seen any lasting improvement, increased diarrheal episodes each time diet is advanced - [facility] consulted --> agreed to accept patient transfer --> currently scheduled for transport at midnight Proctocolitis with rectal bleeding - continue to monitor daily CBC, hgb has been stable, Hgb 10.8 (05/05/23) - continue regime as noted above Hypertension - BPs have been largely 100-110s systolic - losartan temporarily held Hyperlipidemia - home atorvastatin held Nicotine dependence - 50 pack year, 4 cigs/day - nicotine 14 mg patch in CODE STATUS: Full code DVT prophylaxis SCDs, pharmacol. prophylaxis deferred in the setting of hematochezia Total Time Total Time Spent Total Time Spent (In Minutes): see attending attestation Discharge Plan Discharge Items Patient Disposition: Transfer Acute Care Hospital Reason For Visit: DIARRHEA, COLITIS Discharge Diagnosis: persistent proctocolitis Activity: Per Instructions section Non-emergency contact: Primary Care Provider Call non-emergency contact if: you have any medication questions Follow-up/Referrals: Jermaine Stovall, [Primary Care Provider] - Diet: Clear liquid Addtl Attending Provider Instructions: You were admitted to the hospital for proctitis/persistent diarrhea. You were treated with IV methylprednisolone and mesalamine enemas. A discharge summary will be sent to your primary care physician to ensure continuity of care. Please bring this discharge summary with you to your next office appointment so that your provider can review it at that time. Follow-up appointments: We have requested a follow-up appointment with your primary care physician within one week of discharge. Please call their office if you do not hear from them. Keep all your follow-up appointments as already scheduled. If you cannot make an appointment, notify your provider. Medications: Your medication list has been reviewed and reconciled upon discharge to ensure accuracy and continuity of care. An updated list of all your medications is included with your hospital discharge paperwork. Please review this list closely, and make note of any changes. Take your medications as instructed; do not skip a dose of your medicines. Make sure all of your doctors know every medicine you are taking (including [id number] medicines, vitamins, and supplements). Call your primary care provider before taking any new medicines (including [id number] medicines, vitamins, and supplements), because some of these may interact with your current medications, or may make your symptoms worse. Tell your primary care provider if you cannot afford your medications. CONTACT YOUR PRIMARY CARE PROVIDER if you experience any of the following: persistent diarrhea, especially continued bloody diarrhea symptoms of anemia (shortness of breath, fatigue, paleness), fevers, worsening abdominal pain Difficulty following your treatment plan, or difficulty taking medications CALL 911 OR GO TO THE EMERGENCY DEPARTMENT if you experience any of the following: Sudden, severe abdominal pain or nausea/vomiting Severe chest pain, or chest pain that radiates (moves) to your jaw or arm Sudden, severe shortness of breath or difficulty breathing Thank you for allowing us to participate in your care Pending Studies at Discharge: No Stand-Alone Forms: My [facility] Skilled Items Patient informed of condition?: Yes DNR: No Discharge Level of Care: Other Communicable Disease: No Discharge Prognosis: Stable Lines: None Urinary Catheter: No Medications and DC Order Prescriptions: Continued fluticasone propionate [Flonase Allergy Relief] 50 mcg/actuation spray,suspension 2 spray intranasal QAM Rx Instructions: administer into each nostril Advanced Probiotic 625 mg (10 billion cell) Capsule 2 cap PO DAILY 30 Days Qty: 60 0RF atorvastatin 40 mg tablet 40 mg PO QAM Patient Comments: takes in pm losartan 25 mg tablet 25 mg PO QAM Patient Comments: takes in the am montelukast 10 mg tablet 10 mg PO QAM Patient Comments: pt states he takes in the am Held prednisone 5 mg tablet 5 mg PO DIRECTED Qty: 228 0RF Hold Instructions: Resume on 05/09/23. Hold until you have received care from [facility] Rx Instructions: see taper instructions Take 40 mg (8 tabs) for 4 days Per - 40 mg (8 tablets) for 4 days, 7 ( 35 mg) tablets daily for 1 week, 6 (30 mg) tablets daily for 1 week, 5 (25 mg) tablets daily for 1 week, 4 (20 mg) tablets daily for 1 week, 3 (15 mg) tablets daily for 1 week, 2 (10 mg) ta blets daily for 1 week, 1 ( 5 mg) tablet daily for 1 week. Take 35 mg (7 tabs) for 7 days Take 30 mg ( 6 tabs) for 7 days Take 25 mg (5 tabs) for 7 days Take 20 mg (4 tabs) for 7 days Take 15 mg (3 tabs) for 7 days Take 10 mg ( 2 tabs) for 7 days Take 5 mg (1 tabs) for 7 days Discharge Orders: Discharge Order (Routine); Ordered 11/30/23 Ordered By: Pj Bashir Admission Data Admit Date/Time: 05/01/23 13:16 Attending Provider: Pj Shannon Admit Provider: Toby Hunt Primary Care Provider: Jermaine Stovall Other Providers: Steven Alvarez; Corin Kan Jr Supervising Physician Co-Signing Physician Notes Attending attestation Pt seen and examined in concert with Dr. Bashir. In agreement with the documented findings as noted in the resident documentation with any exceptions or additions as noted here. Patient with persistent, nonimproved bowel movement frequency, severity and rectal pain despite escalated therapy. On examination, S1/S2 nl RRR no MCG. CTAB. Abd NT/ND BS+ve VS: 125/75, 75, 18, 36.5C, 93% RA Data: WBC 7.01, Hgb 10.8, BUN 8, Cr 0.79 Proctocolitis, intractable - no evident improvement on escalated therapy, discussed with accepting physician and GI consultation and agree w/ [place] [facility] and [place]. Else see resident documentation as noted. Total attending physician time spent with this patient's care on the day of discharge: 40 minutes
[2023-05-05] MEDS: HYDROmorphone INJ 0.5 MG/0.5 ML SYR IV PRN (21:09)
== END 2023-05-05 21:22 | disposition short-term general hospital (02) | DRG 387 ==
LOC: ED 04:26 → EDINP 04:26 → SUATTDRO 11:30 → 2S 17:20 → 3E 04-30 16:10 → SUATTDRO 05-01 13:16